=== PATIENT | male | born 1950 | race Caucasian/White ===

== ENCOUNTER 2021-05-09 11:36 | Outpatient (CLI) | payer MEDICARE, MEDICAID, SELFPAY ==
--- NOTE | ~2021-05-09 | CT_ITS ---
EXAMINATION: CT shoulder RT wo con DATE: 05/09/2021 12:12 INDICATION: Right shoulder pain with bicipital tendinitis TECHNIQUE: High resolution computed tomography (CT) of the right shoulder was performed without intra venous contrast. Additional sagittal and coronal reconstructions were performed. Automated exposure c ontrol and iterative reconstruction technique were employed. The dose-length product was 580.61 mGy-c m. COMPARISON: Radiographs dated 05/09/2021 FINDINGS: Bone alignment is normal. No fracture. Mild cystic change along the superior facet footplate of the g reater tuberosity suggesting disease of the supraspinatus tendon. There is small amount of dystrophic calcification in the region of the posterior most middle facet footplate of the infraspinatus tendon consistent with calcific tendinitis. Mild to moderate acromioclavicular osteoarthritis. The acromion undersurface is minimally curved in morphology (type I-II). Tiny subacromial spurs. And humeral join t space is normal with no joint effusion small corticated ossicle anterior to the joint line which co uld represent degenerative loose body or heterotopic ossicle either in the anterior capsular in the s ubscapularis tendon. Soft tissues at the right axilla are unremarkable with no pathologically enlarge d lymphadenopathy. Visualized portion of the lateral left lung is unremarkable. IMPRESSION: 1. Right infraspinatus calcific tendinitis and cystic change at the superior facet of the greater tub erosity suggesting supraspinatus tendon disease. 2. Mild to moderate acromioclavicular osteoarthritis. Reviewed, dictated and finalized at location A. IMPRESSION: 1. Right infraspinatus calcific tendinitis and cystic change at the superior fa cet of the greater tuberosity suggesting supraspinatus tendon disease. 2. Mild to moderate acromioclavicular osteoarthritis.
--- NOTE | ~2021-05-09 | XR_ITS ---
EXAMINATION: XR humerus RT INDICATION: Right arm pain, bicipital tendinitis TECHNIQUE: Two views of the right humerus are obtained on three radiographs. COMPARISON: None available FINDINGS: Bone alignment is normal. There is no fracture. There is mild to moderate osteoarthritis of the acromioclavicular joint. Mild osteoarthritis is also noted in the elbow. IMPRESSION: 1. No acute osseous abnormality. Reviewed, dictated and finalized at location B.
--- NOTE | ~2021-05-09 | XR_ITS ---
EXAMINATION: XR shoulder RT min 2V INDICATION: Right shoulder pain TECHNIQUE: Four views of the right shoulder are submitted. COMPARISON: None FINDINGS: Normal alignment. No fracture. There is mild to moderate acromioclavicular joint osteoarthr itis. Soft tissues are unremarkable. Calcific tendinitis of the infraspinatus tendon, better apprecia jade on today's CT scan. IMPRESSION: 1. Osteoarthritis and calcific tendinitis of the infraspinatus. Reviewed, dictated and finalized at location B.
== END 2021-05-09 11:37 | disposition home or self-care (01) ==
LOC: ANHIMG 11:41
PROVIDERS: PCP Internal Medicine; Visit Provider Nurse Practitioner Adult Health
DX: M19.011 Primary osteoarthritis, right shoulder (principal); M75.31 Calcific tendinitis of right shoulder
CPT/HCPCS: 73030; 73060; 73200

== ENCOUNTER 2024-07-30 19:52 | Emergency (ER) | payer MEDICARE, MEDICAID, SELFPAY ==
--- NOTE | ~2024-07-30 | CT_ITS ---
CLINICAL INDICATION: Fall COMPARISON: None. TECHNIQUE: Multiple contiguous axial images of the chest, abdomen and pelvis were performed without t he administration of intravenous contrast The dose-length product (DLP) was 1233 mGy-cm. Automated exposure control and iterative reconstruction technique were employed. FINDINGS/OBSERVATIONS: LUNG: Large pleural-based mass is identified within the left upper lobe, with medial extension to the left hilum, which represents a malignancy until proven otherwise. Scattered subcentimeter nodules are present bilaterally, likely representing metastatic disease. Nodu lar pleural thickening is also noted, specifically within the left lung base. No contusion, pneumothorax or hemothorax. MEDIASTINUM:Extensive mediastinal lymphadenopathy. The largest lymph node is within the left hilum measuring 26 mm in short axis dimension. Subcarinal lymphadenopathy is also noted measuring 23 mm in short axis dimension. Retrosternal lymph nodes are also noted within the pericardial fat. HEART: The heart is of normal size, without pericardial effusion. SOFT TISSUES OF THE CHEST: Unremarkable. Liver: The liver is shrunken and nodular, and demonstrates heterogeneous attenuation. Punctate calcifications identified within the hepatic parenchyma, suggesting prior granulomatous dise ase. No perihepatic fluid to suggest acute traumatic injury. Gallbladder and biliary system: The gallbladder is surgically absent. Pancreas: Limited evaluation without intravenous contrast. No peripancreatic fluid is identified to suggest acute traumatic injury. Spleen: Punctate calcifications identified within the splenic parenchyma, suggesting prior granulomat ous disease. The remainder of the spleen demonstrates otherwise homogeneous attenuation and is not enlarged. No perisplenic fluid is identified to suggest acute traumatic injury. Kidneys: The bilateral kidneys are heterogeneous in attenuation, without hydronephrosis or significant renal c alculi. No perirenal fluid is identified to suggest acute traumatic injury. Adrenal glands: Unremarkable. Gastrointestinal tract: Colonic diverticulosis without surrounding inflammatory change. No free fluid within the abdomen or pelvis. Vasculature: Densely calcified atherosclerotic disease. Within the left groin, is asymmetric enlargement of the left common femoral vein with surrounding inf lammatory change, possibly representing acute venous thrombosis for which clinical correlation and po ssible focused ultrasound is recommended. Significant splenorenal varicosities are identified to the left of midline extending into the pelvis. Lymph nodes: Limited evaluation without intravenous contrast. Pelvic structures: The bladder is only minimally distended, and otherwise unremarkable. The prostate gland is enlarged with bulky calcifications. Body wall and musculoskeletal: No umbilical hernia. Significant degenerative disease within the lower thoracic and lumbosacral spines with osteophyte for mation, disc space narrowing, endplate changes and vacuum phenomena. No lytic or blastic lesions are identified.. No acute fracture within the thoracic or lumbar spine. No acute rib fractures. No acute sternal fracture. IMPRESSION: No hollow or solid visceral organ injury. No acute fracture. Findings within the left upper lobe representing a malignancy until proven otherwise. Multiple subcentimeter pulmonary nodules detected bilaterally for which metastatic disease is suspect ed. Extensive mediastinal lymphadenopathy without retroperitoneal or significant mesenteric adenopathy. Additional findings consistent with portal hypertension. Asymmetric enlargement of the left common femoral vein with surrounding inflammatory change for which focused ultrasound may be performed, following clinical correlation (if needed) to exclude venous th rombosis. Reviewed, dictated and finalized at location A. IMPRESSION: No hollow or solid visceral organ injury. No acute fracture. Findings within the left upper lobe representing a malignancy until proven othe rwise. Multiple subcentimeter pulmonary nodules detected bilaterally for which metasta tic disease is suspected. Extensive mediastinal lymphadenopathy without retroperitoneal or significant me senteric adenopathy. Additional findings consistent with portal hypertension. Asymmetric enlargement of the left common femoral vein with surrounding inflamm atory change for which focused ultrasound may be performed, following clinical correlation (if needed) to exclude venous thrombosis.
--- NOTE | ~2024-07-30 | CT_ITS ---
History: Fall PROCEDURE: CT head without contrast. COMPARISON: None TECHNIQUE: Axial imaging of the head performed from the skull base to the vertex without IV contrast. Sagittal a nd coronal reformations obtained. DLP: 681 mGy-cm FINDINGS: The ventricles are enlarged. The dilatation of the ventricles is proportional to the degree of sulcal prominence, not uncommon in the senescent brain. Decreased attenuation is identified within the periventricular white matter, likely secondary to micr ovascular ischemic disease, in a patient of this age. There is no mass, mass effect or midline shift. There is no abnormal extra-axial fluid collection or intracranial hemorrhage. Visualized paranasal sinuses are clear. The mastoid air cells are well aerated. No acute displaced fractures within the overlying cranium. Impression: No acute intracranial hemorrhage or suspicious mass effect. Reviewed, dictated and finalized at location A. Impression: No acute intracranial hemorrhage or suspicious mass effect.
--- OUTSIDE RECORDS SUMMARY | 2024-07-30 19:53 | XMS_ITS | Clinical Summary ---
Author Organization [facility] [employer] Address [address] [place] [address] Care Team Providers Care Licensed Mental Health Professional Name Role Phone Jacques Kim MD Primary Care Provider [phone] Source Comments [facility],non-owned Affiliates and Associated Physician Practices is amultiple site organization consisting of ambulatory clinics and hospital sitesin [place], [place], [place] and [place]. This disclosure is being madepursuant to the Care Everywhere program and may not contain all information available regarding this patient. Last updated 17.[facility] [employer] Allergies Active Allergy Reactions Criticality Noted Date Comments Sulfa Drugs Skin Reactions Medium 03/27/2014 Medications * Be aware that medications may not be up to date on this document. Alwaysverify current medications with the patient. acetaminophen (TYLENOL) 325 MG tablet Take 2 (two) tablets by mouth every 4 hours as needed for Fever or Pain Maximum allowable Acetaminophen amount = 4 Grams (4000 mg) / 24 hours. Active buPROPion SR 12hr (WELLBUTRIN-SR ) 150 MG tablet Take 1 (one) tablet by mouth once daily 0 Active metoprolol succinate XL 24hr (TOPROL XL) 25 MG tablet Take 1 (one) tablet by mouth once daily 0 Active lisinopril (PRINIVIL; ZESTRIL) 20 MG tablet Take 1 (one) tablet by mouth once daily 1 Active albuterol HFA (PROVENTIL;DUYEN TOLIN;PROAIR) 108 (90 Base) MCG/ACT inhaler 1 Active Multiple Vitamin (MULTIVITAMIN ADULT PO) Active sildenafil (VIAGRA) 100 MG tablet Take 0.5 (one-half) tablet by mouth once daily as needed (take 1 tablet daily as needed 1 hour prior to intercourse on empty stomach) 1 hour prior to intercourse 10 tablet 1 Active Magnesium 400 MG Take 400 mg by mouth once daily Active cyclobenzaprin e (Flexeril) 10 MG tablet 1 (one) tablet 3 times daily as needed 2 Active rosuvastatin (Crestor) 20 MG tablet Take 1 (one) tablet by mouth at bedtime 2 Active Cyanocobalamin (B-12) 250 MCG Take 1 (one) tablet by mouth once daily Active Potassium 99 MG tablet Take 1 (one) tablet by mouth once daily Active Coenzyme Q10 (CoQ10) 100 MG Activ e famotidine (Pepcid) 40 MG tablet TAKE 1 TABLET BY MOUTH EVERY DAY 90 tablet 1 5 Active Active Problems Problem Noted Date Diagnosed Date Anemia 07/30/2024 Overview (07/30/2024): Progressive drop in Hgb in 2024 with normal MCV and iron level Duodenum ulcer 09/23/2022 Overview (09/25/2022): 09/23/22: EGD duodenal bulb ulcer, antral biopsies negative for H pylori. 09/25/22 started famotidine 40 mg bid, drop to 40 mg qd after a month Colon adenomas 12/04/2020 Overview (01/12/2023): 12/04/20 colonoscopy: multiple adenomas removed, repeat in 1-2 years. 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 07/31/14 CT: fatty liver 12/14/18 CT w/contrast: nodular liver, multiple indeterminate hypodensities 01/11/19 MRI ([facility]): nodular liver, no focal lesions, mild splenomegaly, no ascites 01/24/20 US: nodular liver, no focal lesions, patent vessels, no ascites dwp 01/24/20 EGD: no varices, moderate PHG with mucosal hemorrhages in the antrum, biopsies okay mcm 12/04/20 US: nodular liver, no focal lesions, patent vessels, no ascites dwp 07/26/21 US: nodular liver, new 2 cm left lobe hypodensity, patent vessels, no ascites dwp 09/04/21 MRI: nodular liver, no worrisome focal lesions, patent vessels, no ascites mcm 04/09/22 US: nodular liver, no focal lesions seen, patent vessels, no ascites mcm 09/23/22 EGD: no varices, no PHG 10/07/22 US: nodular liver, no focal lesions seen, patent vessels, no ascites mcm 04/15/23 US: nodular liver, no focal lesions seen, patent vessels, no ascites mcm 12/30/23 US: nodular liver, no focal lesions seen, patent vessels, no ascites mcm 07/28/24 US: nodular liver, no focal lesions, patent vessels, no ascites mcm Diffuse large cell lymphoma in remission 018 Overview (06/25/2019): Diagnosed in 2013 and treated with R-CHOP Prostate cancer 06/22/2017 Overview (06/27/2019): Diagnosed 2013 Rising PSA level Encounters Date Type Department Care Team Description 07/27/2024 10:14 AM CDT - 07/27/2024 11:59 PM CDT Hospital Encounter [facility] [address] [place] [phone] Hardeep Novak MD Discharge Disposition: Home or Self Care 07/27/2024 9:09 AM CDT - 07/27/2024 9:39 AM CDT Hospital Encounter [facility] [address] [place] [address] Hardeep Novak MD Discharge Disposition: Home or Self Care 07/27/2024 Travel 06/30/2024 Telephone [facility] - [place] [address] [place] [address], [place] [phone] Demi Landin RN Future Appointment 05/30/2024 Orders Only [facility] - Urology [address] [place] [address], [place] [phone] Trini Stephenson LPN 05/19/2024 Refill [facility] - [address], [place] [phone] Hardeep Novak MD Refill Request from Last 3 Months Immunizations Immunization Administration Dates Next Due INFLUENZA VACCINE 05/01/2017 Family History Medical History Relation Name Comments None Known Brother CVA Father Status: d None Known Maternal Aunt None Known Maternal Grandfather None Known Maternal Grandmother None Known Maternal Uncle None Known Mother Status: d None Known Other None Known Paternal Aunt None Known Paternal Grandfather None Known Paternal Grandmother None Known Paternal Uncle None Known Sister Asthma Neg Hx Cancer - Breast Neg Hx Cancer - Other Neg Hx Cancer - Skin, Melanoma Neg Hx Cancer - Skin, Non Melanoma Neg Hx Eczema Neg Hx Hemophilia Neg Hx Psoriasis Neg Hx Relation Name Status Comments Brother Father Maternal Aunt Maternal Grandfather Maternal Grandmother Maternal Uncle Mother Other Paternal Aunt Paternal Grandfather Paternal Grandmother Paternal Uncle Sister Social History Tobacco Use Types Packs/Day Years Used Date Smoking Tobacco: Every Day Cigarettes 0.5 55 Smokeless Tobacco: Never Tobacco Cessation:Ready to Q uit: Not Asked; Counseling Given: Not Answered Alcohol Use Standard Drinks/Week Comments No 0 (1 standard drink = 0.6 oz pur e alcohol) Sex and Gender Information Value Date Recorded Sex Assigned at Male 04/02/2022 9:58 AM GOVERNMENT SERVICE EXECUTIVE Legal Sex Male 5:14 PM GOVERNMENT SERVICE EXECUTIVE Gender Identity Male 04/02/2022 9:58 AM GOVERNMENT SERVICE EXECUTIVE Sexual Orientation Straight 04/02/2022 9: 58 AM GOVERNMENT SERVICE EXECUTIVE Last Filed Vital Signs Vital Sign Reading Time Taken Comments Blood Pressure 126/83 02/01/2024 1:44 PM GOVERNMENT SERVICE EXECUTIVE Pulse 67 02/01/2024 1:44 PM GOVERNMENT SERVICE EXECUTIVE Temperature 36.8 C (98.2 F) 08/10/2023 1:06 PM CDT Respiratory Rate 18 01/12/2023 2:11 PM GOVERNMENT SERVICE EXECUTIVE Oxygen Saturation 96% 02/01/2024 1:44 PM GOVERNMENT SERVICE EXECUTIVE Inhaled Oxygen Concentration 21% 10/20/2018 7 :15 AM CDT Weight 104.5 kg (230 lb 6.4 oz) 02/01/2024 1:44 PM GOVERNMENT SERVICE EXECUTIVE Height 175.3 cm (5' 9) 02/01/2024 1:44 PM GOVERNMENT SERVICE EXECUTIVE Body Mass Index 34.02 02/01/2024 1:44 PM GOVERNMENT SERVICE EXECUTIVE Plan of Treatment Upcoming Encounters Date Type Department Care Team (Late st Contact Info) Description 08/01/2024 1:30 PM CDT Office Visit [facility] [address] [place] [address], [place] [phone] Hardeep Cohen MD [address] [place] [address] [place] [address] Health Maintenance Due Date Last Done Comments COLOGUARD (AGES 45-75) - COLON CA SCREENING 1950 CT COLONOGRAPHY - COLON CA SCREENING 1950 FIT - COLON CA SCREENING 1950 FLEX SIG - COLON CA SCREENING 1950 HEPATITIS C SCREENING 09/07/1969 DTAP/TDAP/TD VACCINES (1 - Tdap) 09/11/1970 PNEUMOCOCCAL VACCINE 50+ (1 of 2 - PCV) 09/11/1970 LUNG CANCER SCREENING 09/11/2001 ZOSTER VACCINE (1 of 2) 09/11/2001 HEPATITIS B VACCINE (1 of 3 - Risk 3-dose series) 2011 Respiratory Syncytial Virus (RSV) Vaccine Pt: or over 60 yrs (1 - Risk 60-74 years 1-dose series) 2011 AAA SCREENING 09/11/2016 COVID-19 VACCINE (3 - season) 2023 06/12/2020, 05/15/2020 DEPRESSION SCREENING 02/17/2024 MEDICARE AWV CALENDAR YEAR 2024 SCREENING FOR DIABETES 07/28/2027 , 07/27/2024, 02/19/2024, Additional history exists COLON MONITORING 09/23/2032 09/23/2022, 09/2022, 12/04/2020, Additional history exists COLONOSCOPY - COLON CA SCREENING 09/23/2032 09/23/2022, 09/23/2022, 12/04/2020, Additional history exists Colorectal Cancer Screening 09/23/2032 INFLUENZA VACCINE Completed 11/23/2023, 05/01/2017 HIB VACCINE Aged Out No longer eligi ble based on patient's age to complete this topic HPV VACCINE Aged Out No longer eligi ble based on patient's age to complete this topic MENINGOCOCCAL (Group B) VACCINE SHARED DECISION-MAKING Aged Out No longer eligible based on patient's age to complete this topic MENINGOCOCCAL GROUPS A/C/Y/W VACCINE Aged Out No longer eligible based on patient's age to complete this topic Goals Goal Patient Goal Type Associated Problems Recent Progress Patient-Stated? Author Medication Management General On track( 024 1:45 PM GOVERNMENT SERVICE EXECUTIVE) No Sarah Beth Hariston, RN Note: Expected end date: ongoing Interventions: Take all medications as prescribed Let your doctor know right away about any changes in your medications Make sure to request a refill of your medication at least one week prior to your last dose Procedures Procedure Name Priority Date/Time Associated Diagnosis Comments PROSTATE SPECIFIC ANTIGEN SCREEN Routine 07/27/2024 10:32 AM CDT Malignant neoplasm of prostate (HCC) HEMOGLOBIN A1C Routine 07/27/2024 10:32 AM CDT Liver cirrhosis secondary to [facility] Prostate cancer (CMS/HCC) Malignant neoplasm of prostate (HCC) ALPHA FETOPROTEIN BLOOD TUMOR MARKER Routine 07/27/2024 10:25 AM CDT Liver cirrhosis secondary to MASH Abnormal finding on imaging of liver PT-INR [facility] Routine 07/27/2024 10:25 AM CDT Liver cirrhosis secondary to MASH Abnormal finding on imaging of liver COMPREHENSIVE METABOLIC PANEL Routine 07/27/2024 10:25 AM CDT Liver cirrhosis secondary to MASH Abnormal finding on imaging of liver CBC W AUTO DIFFERENTIAL Routine 07/27/2024 10:25 AM CDT Liver cirrhosis secondary to MASH Abnormal finding on imaging of liver US ABDOMEN LIMITED Routine 07/27/2024 9: 35 AM CDT Liver cirrhosis secondary to MASH ENDOSCOPY, COLON, SCREENING Routine 09/23/2022 8:21 AM CDT from Last 3 Months or Most Recently Relevant to Health Maintenance Results * HEMOGLOBIN A1C [IN-HOUSE TEST] (07/27/2024 10:32 AM CDT) Hemoglobin A1c 5.2 <=5.6 % 07/27/2024 12:09 PM CDT [facility] Estimated Average Glucose 103 mg/dL 07/27/2024 12:09 PM T [facility] Comment: HbA1c Interpretation: Normal : < 5.7% Pre-diabetes: 5.7-6.4% Diabetes: Equal to or greater than 6.5% Test results diagnostic of diabetes should be repeated for confirmation. Treatment target values recommended by ADA and other clinical organizations should be used to evaluate metabolic control in patients. Reference: [place] Diabetes Association, Standards of Care in Diabetes -2020 In patients 70 years and older consider HbA1c target range of 7.0-7.5% (Reference: Gato Barber et al. JAMDA. 2012) The Sebia assay for the measurement of HbA1c is a National Glycohemoglobin Standardization Program (NGSP) certified method. Blood BLOOD SPECIMEN WITH EDTA / Unknown Lab Venipuncture / Unknown 07/27/2024 10:32 AM CDT 07/27/2024 10:57 AM CDT us Jacques Kim MD LAB - CHEMISTRY ORDERABLES F inal Result [facility] [address] [place] [phone], [facility] [phone] * PROSTATE SPECIFIC ANTIGEN SCREEN (07/27/2024 10:32 AM CDT) PSA Total 2.2 <4.0 ng/mL 07/27/2024 12:19 PM CDT [facility] Blood BLOOD SPECIMEN / Unknown Lab Venipuncture / Unknown 07/27/2024 10:32 AM CDT 07/27/2024 10:57 AM CDT Narrative [facility] - 07/27/2024 12:19 PM CDT PSA values will vary depending on the testing procedure used. Results are not comparable across different test methods. [facility] uses the Applika Alinity immunoassay test method. us Jacques Kim MD LAB - CHEMISTRY ORDERABLES F inal Result [address] [address], [facility] [phone] * PT-INR [facility] (07/27/2024 10:25 AM CDT) PT 14.3 12.1 - 14.8 Seconds 07/27/2024 11:30 AM CDT [facility] INR 1.1 See Comment 07/27/2024 11:30 AM CDT [facility] Comment:The suggested therap eutic range for standard coumadin (warfarin) therapy is an INR of 2.0-3.0. For high-risk patients (Mechanical Mitral Valve Prosthesis, etc.), the suggested prophylactic therapeutic range is an INR of 2.5-3.5. Blood BLOOD SPECIMEN / Unknown Lab Venipuncture / Unknown 07/27/2024 10:25 AM CDT 07/27/2024 10:57 AM CDT us Hardeep Cohen MD LAB - COAGULATION ORDERABLES Final Result [address] [address], [facility] [phone] * ALPHA FETOPROTEIN BLOOD TUMOR MARKER (07/27/2024 10:25 AM CDT) [facility] Alpha-Fetoprote in Tumor Marker 3.6 <=8.3 ng/mL 07/27/2024 12:23 PM [facility] Comment: AFP values will vary depending on testing procedure used. Results are not comparable across different methods. AFP values obtained by [facility] using an [place] Alinity Immunoassay. Blood BLOOD SPECIMEN / Unknown Lab Venipuncture / Unknown 07/27/2024 10:25 AM CDT 07/27/2024 10:57 AM CDT Hardeep Cohen MD LAB - CHEMISTRY OR DERABLES Final Result [facility] [address] [place] [address], [facility] [phone] * (ABNORMAL) CBC W/ DIFFERENTIAL (07/27/2024 10:25 AM CDT) [facility] WBC 4.1 4.0 - 10.7 x10E9/L 07/27/2024 11:15 AM [facility] RBC Count 3.95(L) 4.30 - 5.80 x10E12/L 07/27/2024 11:15 AM [facility] Hemoglobin 13.6 13.3 - 17.5 g/dL 07/27/2024 11:15 AM [facility] Hematocrit 38.6(L) 38.7 - 51.1 % 07/27/2024 11:15 AM [facility] MCV 97.7 80.0 - 98.0 fL 07/27/2024 11:15 AM [facility] MCH 34.4(H) 26.7 - 33.6 pg 07/27/2024 11:15 AM [facility] MCHC 35.2 31.7 - 36.3 g/dL 07/27/2024 11:15 AM [facility] RDW-CV 12.3 11.3 - 14.8 % 07/27/2024 11:15 AM [facility] Platelet Count 163 150 - 420 x10E9/L 07/27/2024 11:15 AM [facility] MPV 10.1 7.8 - 11.4 fL 07/27/2024 11:15 AM [facility] Neutrophil % 39.1(L) 41.0 - 74.0 % 07/27/2024 11:15 AM [facility] Lymphocyte % 40.8 17.0 - 47.0 % 07/27/2024 11:15 AM [facility] Monocyte % 12.8(H) 3.0 - 11.0 % 07/27/2024 11:15 AM [facility] Eosinophil % 6.3 0.0 - 7.0 % 07/27/2024 11:15 AM [facility] Basophil % 1.0 0.0 - 1.6 % 07/27/2024 11:15 AM [facility] Immature Granulocytes % 0.0 0.0 - 1.0 % 07/27/2024 11:15 AM [facility] Neutrophil Absolute 1.62 1.60 - 7.50 x10E9/L 07/27/2024 11:15 AM [facility] Lymphocyte Absolute 1.69 1.00 - 4.40 x10E9/L 07/27/2024 11:15 AM [facility] Monocyte Absolute 0.53 0.15 - 1.00 x10E9/L 07/27/2024 11:15 AM [facility] Eosinophil Absolute 0.26 0.00 - 0.60 x10E9/L 07/27/2024 11:15 AM [facility] Basophil Absolute 0.04 0.00 - 0.13 x10E9/L 07/27/2024 11:15 AM [facility] Blood BLOOD SPECIMEN / Unknown Lab Venipuncture / Unknown 07/27/2024 10:25 AM CDT 07/27/2024 10:57 AM T us Hardeep Cohen MD LAB - HEMATOLOGY O RDERABLES Final Result [facility] [address] [place] [address], [facility] [phone] * (ABNORMAL) COMPREHENSIVE METABOLIC PANEL (07/27/2024 10:25 AM [facility]) BUN 18 7 - 26 mg/dL 07/27/2024 12:16 PM [facility] Creatinine 1.16 0.71 - 1.16 mg/dL 07/27/2024 12:16 PM [facility] Sodium 139 136 - 145 mmol/L 07/27/2024 12:16 PM [facility] Potassium 4.7(H) 3.5 - 4.5 mmol/L 07/27/2024 12:16 PM [facility] Chloride 108(H) 98 - 107 mmol/L 07/27/2024 12:16 PM [facility] CO2 21(L) 22 - 29 mmol/L 07/27/2024 12:16 PM [facility] Glucose 90 70 - 99 mg/dL 07/27/2024 12:16 PM [facility] Calcium 9.6 8.4 - 10.2 mg/dL 07/27/2024 12:16 PM [facility] Protein Total 7.1 6.0 - 8.3 g/dL 07/27/2024 12:16 PM [facility] Albumin 3.5 3.4 - 5.0 g/dL 07/27/2024 12:16 PM [facility] Bilirubin Total 1.0 0.2 - 1.2 mg/dL 07/27/2024 12:16 PM [facility] Alkaline Phosphatase 74 40 - 150 U/L 07/27/2024 12:16 PM [facility] ALT 20 5 - 55 U/L 07/27/2024 12:16 PM [facility] AST 40(H) 5 - 34 U/L 07/27/2024 12:16 PM [facility] Anion Gap 10 6 - 16 07/27/2024 12:16 PM [facility] BUN/Creatinine Ratio 16 7 - 23 07/27/2024 12:16 PM [facility] Osmolality Calculated 289 275 - 295 mOsm/kg 07/27/2024 12:16 PM CDT [facility] Albumin/Globulin Ratio 1.0(L) 1.1 - 2.3 07/27/2024 12:16 PM CDT [facility] eGFR by CKD-EPI 67(L) >=90 mL/min/1.7 3 m2 07/27/2024 12:16 PM CDT [facility] Blood BLOOD SPECIMEN / Unknown Lab Venipuncture / Unknown 07/27/2024 10:25 AM CDT 07/27/2024 10:57 AM CDT Narrative [facility] - 07/27/2024 12:16 PM CDT Estimated Glomerular Filtration Rate (eGFR) calculated using the CKD-EPI Creatinine Equation (2020), per the National Kidney Foundation and [place] Society of Nephrology recommendations. us Hardeep Cohen MD LAB - CHEMISTRY OR DERABLES Final Result [facility] [address] [place] [address], [facility] [phone] * US Abdomen Limited (07/27/2024 9:35 AM CDT) Anatomical Region Laterality Modality Abdomen Ultrasound 07/28/2024 10:0 3 AM CDT Impressions 07/28/2024 10:04 AM CDT Impression: Liver Visualization Score A: No or minimal limitations. US-1 Negative. Repeat surveillance US in 6 months. Cirrhosis and stigmata of portal venous hypertension. Status postcholecystectomy. REFERENCE: US LI-RADS categories: US Category: US 1 - Negative: No evidence of hepatocellular carcinoma (HCC). US 2 - Subthreshold: Observation detected that may warrant short-interval US surveillance. Observation<10 mm in diameter, not definitely benign. US 3 - Positive: Observation detected that may warrant multi-phase contrast-enhanced imaging. Observation >/= 10 mm in diameter or new thrombus in vein. Visualization Score: A. No or minimal limitations: Limitations, if any, are unlikely to meaningfully affect sensitivity. B. Moderate limitations: Limitations may obscure small masses. C. Severe limitations: Limitations significantly lower sensitivity for focal liver lesions. Report drafted by Rob Pedersen (resident). > Interpreting Provider: Rob Pedersen on 07/28/2024 10:04 AM Narrative 07/28/2024 10:04 AM CDT PROCEDURE: US ABDOMEN LIMITED, DATE/TIME OF EXAM: 07/27/2024 9:35 AM, LOCATION [facility] INDICATION: K75.81: Liver cirrhosis secondary to ROBLES (HCC) K74.60: Liver cirrhosis secondary to ROBLES (HCC) ADDITIONAL CLINICAL INFORMATION: Ordering Provider Reason For Exam: Technologist Note: Additional: COMPARISON: Ultrasound abdomen 12/30/2023. Findings Liver Visualization Score: No or minimal limitations in liver visualization Liver Morphology: The liver has a coarse echotexture and nodular surface. Liver Observations: None. Main Portal Vein: Color Doppler evaluation demonstrates patency of the main portal vein. Hepatic Veins: Color Doppler evaluation demonstrates patency of the hepatic veins. Bile Ducts: The common bile duct is nondilated, measuring 7 mm. No intrahepatic or extrahepatic biliary dilation. Gallbladder: The gallbladder is absent. . Sonographic Aldridge's sign is negative. Ascites: No ascites is present. Spleen: The spleen measures 12.6 cm in length. Splenic granulomas present. Pancreas: The visible pancreas is normal in echogenicity. Right Kidney: The right kidney measures 10.6 cm in length. Limited views of the right kidney reveal no evidence of nephrolithiasis or hydronephrosis. No discrete mass identified. Other: None. Procedure Note Rob Pedersen MD - 07/28/2024 PROCEDURE: US ABDOMEN LIMITED, DATE/TIME OF EXAM: 07/27/2024 9:35 AM, LOCATION [facility] INDICATION: K75.81: Liver cirrhosis secondary to ROBLES (HCC) K74.60: Liver cirrhosis secondary to ROBLES (HCC) ADDITIONAL CLINICAL INFORMATION: Ordering Provider Reason For Exam: Technologist Note: Additional: COMPARISON: Ultrasound abdomen 12/30/2023. Findings Liver Visualization Score: No or minimal limitations in liver visualization Liver Morphology: The liver has a coarse echotexture and nodular surface. Liver Observations: None. Main Portal Vein: Color Doppler evaluation demonstrates patency of the main portal vein. Hepatic Veins: Color Doppler evaluation demonstrates patency of the hepatic veins. Bile Ducts: The common bile duct is nondilated, measuring 7 mm. No intrahepatic or extrahepatic biliary dilation. Gallbladder: The gallbladder is absent. . Sonographic Aldridge's sign is negative. Ascites: No ascites is present. Spleen: The spleen measures 12.6 cm in length. Splenic granulomas present. Pancreas: The visible pancreas is normal in echogenicity. Right Kidney: The right kidney measures 10.6 cm in length. Limited views of the right kidney reveal no evidence of nephrolithiasis or hydronephrosis. No discrete mass identified. Other: None. Impression: Liver Visualization Score A: No or minimal limitations. US-1 Negative. Repeat surveillance US in 6 months. Cirrhosis and stigmata of portal venous hypertension. Status postcholecystectomy. REFERENCE: US LI-RADS categories: US Category: US 1 - Negative: No evidence of hepatocellular carcinoma (HCC). US 2 - Subthreshold: Observation detected that may warrant short-interval US surveillance. Observation<10 mm in diameter, not definitely benign. US 3 - Positive: Observation detected that may warrant multi-phase contrast-enhanced imaging. Observation >/= 10 mm in diameter or new thrombus in vein. Visualization Score: A. No or minimal limitations: Limitations, if any, are unlikely to meaningfully affect sensitivity. B. Moderate limitations: Limitations may obscure small masses. C. Severe limitations: Limitations significantly lower sensitivityfor focal liver lesions. Report drafted by Rob Pedersne (resident). > Interpreting Provider: Rob Pedersen on 07/28/2024 10:04 AM us Hardeep Cohen MD US ORDERABLES Fi nal Result * ENDOSCOPY, COLON, SCREENING (09/23/2022 8:21 AM CDT) Report Endoscopy POC Endoscopy Department Report _ Patient Name: Marcus Marie Procedure Date: 09/23/2022 8:21 AM Date of : 1950 Classification: Outpatient Gender: Male Ethnicity: Not or Race: White _ Providers: Hardeep Modi MD Referring MD: Jacques Kim MD (Referring MD) Procedure: Colonoscopy Indications: High risk colon cancer surveillance: Personal history of colonic polyps Medications: Monitored Anesthesia Care Description of Procedure: Pre-Anesthesia Assessment: - Prior to the procedure, a History and Physical was performed, and patient medications and allergies were reviewed. The patient's tolerance of previous anesthesia was also reviewed. The risks and benefits of the procedure and the sedation options and risks were discussed with the patient. All questions were answered, and informed consent was obtained. Prior Anticoagulants: The patient has taken no anticoagulant or antiplatelet agents. ASA Grade Assessment: III - A patient with severe systemic disease. After reviewing the risks and benefits, the patient was deemed in satisfactory condition to undergo the procedure. - Prior Aspirin/ NSAID therapy: The patient has taken no aspirin or NSAID medications. After I obtained informed consent, the scope was passed under direct vision. Throughout the procedure, the patient's blood pressure, pulse, and oxygen saturations were monitored continuously. The Colonoscope was introduced through the anus and advanced to the cecum, identified by appendiceal orifice and ileocecal valve. The colonoscopy was performed without difficulty. The patient tolerated the procedure well. The quality of the bowel preparation was adequate. The ileocecal valve, appendiceal orifice, and rectum were photographed. Findings: The perianal and digital rectal examinations were normal. A 3 mm polyp was found in the ascending colon. The polyp was sessile. The polyp was removed with a jumbo cold forceps. Resection and retrieval were complete. Verification of patient identification for the specimen was done by the nurse using the patient's name and date. Estimated blood loss was minimal. Multiple small and large-mouthed diverticula were found in the sigmoid colon. The exam was otherwise without abnormality on direct and retroflexion views. Estimated Blood Loss: Estimated blood loss was minimal. Complications: No immediate complications. Impression: - One 3 mm polyp in the ascending colon, removed with a jumbo cold forceps. Resected and retrieved. - Diverticulosis in the sigmoid colon. - The examination was otherwise normal on direct and retroflexion views. Recommendation: - Patient has a contact number available for emergencies. The signs and symptoms of potential delayed complications were discussed with the patient. Return to normal activities tomorrow. Written discharge instructions were provided to the patient. - Resume previous diet. - Continue present medications. - Await pathology results. - Repeat colonoscopy in 5 years for surveillance. - Return to my office as previously scheduled. Attending Participation: I personally performed the entire procedure. I personally performed the entire procedure. Procedure Code(s): --- Professional --- 13837, Colonoscopy, flexible; with biopsy, single or multiple Diagnosis Code(s): --- Professional --- Z86.010, Personal history of colonic polyps D12.2, Benign neoplasm of ascending colon K57.30, Diverticulosis of large intestine without perforation or abscess without bleeding CPT copyright 2021 [employer]. All rights reserved. The codes documented in this report are preliminary and upon customer experience associate review may be revised to meet current compliance requirements. Hardeep Modi MD 09/23/2022 9:15:24 AM This report has been signed electronically. Note Initiated On: 09/23/2022 8:21 AM Number of Addenda: [address] [address] [facility] [employer]OVATION 09/23/2022 8:21 AM CDT Hardeep Cohen MD GI PROCEDURE ORDER BUCK Edited Result - Final [facility] from Last 3 Months or Most Recently Relevant to Health Maintenance Insurance [employer] MEDICARE [facility] MANAGED MEDICARE ADV MEDICARE Care Teams Licensed Mental Health Professional Relationship Specialty Start Date End Date Jacques Kim MD [address] [place] [address] PCP - General 08/17/19
--- OUTSIDE RECORDS SUMMARY | 2024-07-30 19:53 | XMS_ITS | Clinical Summary ---
Author Organization [facility] Address [address] [place] [address] Phone Care Team Providers Care Change Management Analyst Name Role Phone Jeremias Spencer MD Unavailable [phone] Jacques Kim MD Primary Care Provider [phone] Allergies Active Allergy Reactions Criticality Noted Date Comments Sulfasalazine Rash Medium 03/27/2014 Medications ibuprofen (ADVIL,MOTRIN) 400 mg tablet 03/03/2017Ibupr ofen, po solid 400 mg [id number] PRN painCurrent Medication 8 Active albuterol HFA (PROAIR HFA) 90 mcg/actuation inhaler 8 Active acetaminophen (TYLENOL) 325 mg tablet Take 650 mg by mouth every 30 minutes as needed Active buPROPion SR (WELLBUTRIN SR) 150 mg 12 hr tablet 0 Active clotrimazole-bet amethasone (LOTRISONE) cream daily as needed 9 Active silver sulfadiazine (SILVADENE, SSD) 1 % cream 0 Active traMADoL (ULTRAM) 50 mg tablet TK 1 T PO Q 8 HOURS PRN 0 Active metoprolol XL (TOPROL-XL) 50 mg extended release tablet 1 Active lisinopriL (PRINIVIL,ZESTRI L) 20 mg tablet 1 Active Active Problems Problem Noted Date Diagnosed Date Non-Hodgkin's lymphoma of inguinal region 2017 Immunizations Immunization Administration Dates Next Due Moderna SARS-CoV-2 Monovalen t Vaccination (12+ YRS) 06/12/2020,05/15/2020 ZOSTER LIVE 03/03/2017, 7,08/15/2015,2014 Surgical History Surgery Date Site/Laterality Comments COLONOSCOPY Medical History Medical History Date Comments Diabetes mellitus (HCC) Lymphoma (HCC) Family History Medical History Relation Name Comments Cancer Father's Sister Heart attack Mother's Sister 1 Heart attack Mother's Sister 2 Heart attack Mother's Sister 3 Relation Name Status Comments Father's Sister Mother's Sister 1 Mother's Sister 2 Mother's Sister 3 Social History Tobacco Use Types Packs/Day Years Used Date Smoking Tobacco: Every Day Cigarettes 1 59.8 Started: 10/06/1963 Smokeless Tobacco: Never Tobacco Cessation:Ready to Q uit: Yes Alcohol Use Standard Drinks/Week Comments Not Currently 0 (1 standard drink = 0.6 oz pur e alcohol) AUDIT-C Answer Date Recorded Q1: How often do you have a drink containing alc ohol? 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 Gender Identity Not on file Sexual Orientation Not on file Obstetrics History Last Filed Vital Signs Vital Sign Reading Time Taken Comments Blood Pressure 109/56 07/26/2020 10:55 AM CDT Pulse 73 07/26/2020 10:55 AM CDT Temperature 36.7 C (98.1 F) 07/26/2020 10:55 AM CDT Respiratory Rate 18 07/26/2020 10:5 5 AM CDT Oxygen Saturation 95% 07/26/2020 10: 55 AM CDT Inhaled Oxygen Concentration - - Weight 119.5 kg (263 lb 6.4 oz) 021 10:55 AM CDT Height 175.3 cm (5' 9) 07/26/2020 10:5 5 AM CDT Body Mass Index 38.9 07/26/2020 10:55 AM CDT Plan of Treatment Health Maintenance Due Date Last Done Comments Colon Cancer Screening-Colonoscopy 1950 Depression Screening 1950 Fall Risk Assessment 1950 Hepatitis C Screening 1950 DTaP/Tdap/Td Vaccine (1 - Tdap) 09/11/1962 Pneumococcal vaccine 65+ (1 of 2 - PCV) 09/11/1970 Abdominal Aortic Aneurysm (A AA) Screen 09/11/2016 Well Visit 65+ 09/11/2016 Zoster Vaccine (1 of 2) 04/28/2017 03/03/19 18, 02/19/2016, 08/15/2015, Additional history exists Covid-19 Vaccine (3 - Modern a risk series) 07/10/2020 06/12/2020, 05/15/2020 Influenza Vaccine (Season Ended) 2024 Hepatitis B Screening Completed 09/20/[address] [place] [address] [address] [employer] UHC MEDICARE ADVANTAGE MEDICARE ADVANTAGE IDPA Care Teams Change Management Analyst Relationship Specialty Start Date End Date Jacques Kim MD PCP - General Family Medicine 07/28/19 Jeremias Spencer MD Medical Oncologist/[facility] Medical Oncology 01/28/19
--- OUTSIDE RECORDS SUMMARY | 2024-07-30 19:53 | XMS_ITS | CONTINUITY OF CARE DOCUMENT ---
Author Name lisapauletteessence Address Unknown Organization [facility] Address [address] [place] [address] Phone [phone] Care Team Providers Care Adult Parole Officer Name Role Phone Dennis Salas MD Unavailable [phone] WALT MELO MD Unavailable [phone] WALT MELO MD Unavailable [phone] PROBLEMS Condition Status Date Provider Notes Syncope active Dennis Salas MD INSURANCE PROVIDERS Payer name Policy type / Coverage type Howe red alliance party ID [facility] Other HEALTHCARE AND FAMILY SERVICES Medicaid 1 [id number] [facility] MEDICARE COMPLETE HMO Other [id number] HISTORY OF PROCEDURES Procedure Date Procedure Name Provider Procedure Notes S tatus FLAVIA Salas MD c ompleted
--- OUTSIDE RECORDS SUMMARY | 2024-07-30 19:53 | XMS_ITS | Referral Summary ---
Author Organization [facility] Address [address] [place] [address] Phone Care Team Providers Care Distribution Transformer Assembler Name Role Phone Jeremias Spencer MD Unavailable [phone] Jacques Kim MD Primary Care Provider [phone] Allergies Active Allergy Reactions Criticality Noted Date Comments Sulfasalazine Rash Medium 03/27/2014 Medications ibuprofen (ADVIL,MOTRIN) 400 mg tablet 03/03/2017Ibupr ofen, po solid 400 mg [id number] PRN painCurrent Medication 8 Active albuterol HFA [...] (12+ YRS) 06/12/2020,05/15/2020 ZOSTER LIVE 03/03/2017, 7,08/15/2015,2014 Social History Tobacco Use Types Packs/Day Years [...] Average Number of Drinks Not on file Frequency of Binge Drinking Not on file 07/17 Personal Safety Answer Date Recorded Getting School Help Needed Not on file 04/12 Sex and Gender Information Value Date Recorded Sex Assigned at Not on file 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 MEDICARE ADVANTAGE [facility] MEDICARE ADVANTAGE IDPA Care Teams Distribution Transformer Assembler Relationship Specialty Start Date End Date Jacques Kim MD PCP - General Family Medicine 07/28/19 Jeremias Spencer MD Medical Oncologist/Needle Loom Setter Medical Oncology 01/28/19
--- OUTSIDE RECORDS SUMMARY | 2024-07-30 19:53 | XMS_ITS | Encounter Summary ---
Author Organization [facility] Address [address] [place] [address] [place] [address] Care Team Providers Care Gluer And Wedger Name Role Phone Jacques Kim MD Primary Care Provider [phone] Encounter Details Date Type Department Care Team (Late Contact Info) Description 01/23/2020 Preop Outreach [facility] [address] [place] [id number] Nellie Crocker, CONSUELO Social History Tobacco Use Types Packs/Day Years Used Date Smoking Tobacco: Every Day Cigarettes 1.5 55 Smokeless Tobacco: Never Alcohol Use Standard Drinks/Week Comments No 0 (1 standard drink = 0.6 oz pur e alcohol) Sex and Gender Information Value Date Recorded Sex Assigned at Male 04/02/2022 9:58 AM SIX SIGMA BLACK TRAINER Legal Sex Male 5:14 PM SIX SIGMA BLACK TRAINER Gender Identity Male 04/02/2022 9:58 AM SIX SIGMA BLACK TRAINER Sexual Orientation Straight 04/02/2022 9: 58 AM SIX SIGMA BLACK TRAINER COVID-19 Exposure Response Date Recorded In the last month, have you been in contact with someone who was confirmed or suspected to have Coronavirus / COVID-19? No / Unsure 01/24/2020 7:06 AM SIX SIGMA BLACK TRAINER documented as of this encounter Plan of Treatment Upcoming Encounters Date Type Department Care Team (Late Contact Info) Description 08/01/2024 1:30 PM CDT Office Visit [facility] [address] [place] [address] Hardeep Cohen MD [address] [place] [address] [place] [address] documented as of this encounter Visit Diagnoses Not on filedocumented in this encounter Care Teams Gluer And Wedger Relationship Specialty Start Date End Date Jacques Kim MD [address] [place] [address] PCP - General 08/17/19 documented as of this encounter
[2024-07-30 19:57] VITALS: BP 117/56; PULSE 82; RESP 18; TEMP 36.8; O2SAT 100
[2024-07-30 20:02] VITALS: O2SAT 100
--- OUTSIDE RECORDS SUMMARY | 2024-07-30 20:11 | XMS_ITS | CONTINUITY OF CARE DOCUMENT ---
Author Name lisapauletteessence Address Unknown Organization [facility] Address [address] [place] [address] Phone [phone] Care Team Providers Care Hand Sign Writer Name Role Phone Dennis Salas MD Unavailable [phone] WALT MELO MD Unavailable [phone] WALT MELO MD Unavailable PROBLEMS Condition Status Date Provider Notes Syncope active Dennis Salas MD INSURANCE PROVIDERS Payer name Policy type / Coverage type [place]ckley red republican ID [facility] Other HEALTHCARE AND FAMILY SERVICES Medicaid 1 [id number] [facility] MEDICARE COMPLETE HMO Other [id number] HISTORY OF PROCEDURES Procedure Date Procedure Name Provider Procedure Notes S tatus FLAVIA Salas MD c ompleted
[2024-07-30] MEDS: ACETAMINOPHEN 325 MG TABLET 650 MG PO (20:37)
[2024-07-30] MEDS: HYDROmorphone HCL (*CRX) 0.5 MG TABLET PO (20:38)
[2024-07-30 20:56] VITALS: BP 117/63; PULSE 82; RESP 17; O2SAT 97
[2024-07-30 21:12] VITALS: PULSE 80; RESP 18
[2024-07-30] MEDS: IPRATROPIUM 0.5 MG/ALBUTEROL SULFATE 2.5 MG AMPUL.NEB 3 ML INHALATION (21:12)
[2024-07-30] MEDS: LIDOCAINE 5% PATCH 1 PATCH TRANSDERM (21:49)
[2024-07-30 21:52] VITALS: PULSE 83; RESP 18; O2SAT 97
[2024-07-30 22:25] VITALS: BP 116/56; PULSE 82; RESP 18; O2SAT 97
--- NOTE | 2024-07-30 22:26 | ED.FALL ---
HPI - Fall General Chief Complaint: Fall Stated Complaint: fall, rib pain Time Seen by Provider: 07/30/24 19:55 History of Present Illness HPI Narrative: Patient tripped on a branch and his backyard and fell, landing mostly on his right side, he has significant pain to his right ribs. Not entirely sure if he hit his head. No pain elsewhere other than right shoulder but he has chronic pain, able to ambulate here. History of cirrhosis Related Data Allergies Allergy/AdvReac Type Severity Reaction Status Date / Time Sulfa (Sulfonamide Allergy Mild Hives Verified 07/30/24 20:01 Antibiotics) Review of Systems Review of Systems: All systems reviewed & are unremarkable except as noted in HPI and below Exam Narrative: EXAMINATION OF ORGAN SYSTEMS/BODY AREAS: Constitutional: Vital signs per nursing GENERAL:[No acute distress, non-toxic appearing.] HEAD: Normal with no signs of head trauma. EYES: EOMI, conjunctiva normal ENT: Hearing grossly intact LUNGS: Nonlabored breathing. Some tenderness to palpation across the right ribs. Some wheezing and diminished lung sounds left side HEART: [Regular rate and rhythm] ABD: [Soft], [nontender to palpation] EXT: Normal range of motion SKIN: No significant bruising seen NEURO: [Alert and oriented x 3. No gross focal sensory or strength deficits.] PSYCH: Normal affect Course Vital Signs Vital signs: Vital Signs Temperature 98.2 F 07/30/24 19:57 Pulse Rate 82 07/30/24 19:57 Respiratory Rate 18 07/30/24 19:57 Blood Pressure 117/56 L 07/30/24 19:57 Pulse Oximetry 100 07/30/24 19:57 Oxygen Delivery Room Air 07/30/24 19:57 Temperature 98.2 F 07/30/24 19:57 Pulse Rate 82 07/30/24 22:25 Respiratory Rate 18 07/30/24 22:25 Blood Pressure 116/56 L 07/30/24 22:25 Pulse Oximetry 97 07/30/24 22:25 Oxygen Delivery Room Air 07/30/24 20:02 MDM - Fall MDM Narrative Medical decision making narrative: Patient tripped and fell, landing on his right side, now subsequent pain to his right ribs, happened earlier today. No obvious abrasions or bruising on skin, given his age and risk factors I did obtain CT chest, abdomen, pelvis. Unfortunately this does show likely lung cancer with a large mass to the left lung. No rib fractures or other obvious acute injuries. Patient already aware of his cirrhosis and has close follow-up. I did discuss the findings with the patient, he states he has not spread since he is a lifelong smoker. I did also discuss radiology finding/concern for possible DVT, however he has no swelling or pain to his legs, I did offer to order DVT ultrasound for tomorrow morning however patient states he cannot get to it, he does understand the risks of delayed diagnosis, but he will be following up with his primary care doctor to see if he can get this outpatient so he can arrange transport. I did let him know that if he starts having any concerning symptoms especially difficulty breathing or anything else he needs to return to the emergency room. I did discuss follow-up with pulmonology for further workup and diagnosis. Patient comfortable with outpatient management. At time of discharge he was resting comfortably in no distress, no difficulty breathing, speaking full sentences. Discharge Plan Discharge Clinical Impression: Mass of left lung Patient Disposition: Home Condition: Stable Instructions: Rib Contusion (ED) Additional Instructions: Unfortunately your CT today shows large left lung mass concerning for cancer. Please follow-up with your primary care doctor, and with a lung specialist. Your CT was also concerning for a possible blood clot in your left leg, though you did not have any swelling to your leg here today, please speak with your primary care doctor about potentially scheduling and ultrasound if you have any symptoms, or come back to the emergency room. Patient Language: Portuguese Prescriptions: New lidocaine 5 % adhesive patch,medicated 1 patch topical DAILY Qty: 15 0RF Rx Instructions: leave on most painful area for up to 12 hrs acetaminophen [Tylenol Extra Strength] 500 mg tablet 500 mg PO Q6H PRN (Reason: pain) Qty: 30 0RF Follow-up/Referrals: Cherri Brumfield MD [Physician] - 2 Days Jacques Kim MD [Primary Care Provider] -
== END 2024-07-30 22:27 | disposition home or self-care (01) ==
PROVIDERS: Emergency Provider Emergency Medicine; PCP Family Medicine
DX: S29.9XXA Unspecified injury of thorax, initial encounter (principal); R91.8 Other nonspecific abnormal finding of lung field; K74.60 Unspecified cirrhosis of liver; F17.200 Nicotine dependence, unspecified, uncomplicated; R93.89 Abnormal findings on diagnostic imaging of other specified body structures; W18.09XA Striking against other object with subsequent fall, initial encounter
CPT/HCPCS: 70450; 71250; 74176; 94640; 99284; A9270

== ENCOUNTER 2024-08-24 12:09 | Outpatient (CLI) | payer MEDICARE, MEDICAID, SELFPAY ==
--- NOTE | ~2024-08-24 | US_ITS ---
US venous doppler [facility] - 08/24/2024 14:10 CDT History: 73 years old Male with left lower extremity pain and swelling. Real-time sonographic images of the left lower extremity venous system were obtained. Color Doppler sonography and spectral waveform analysis were performed. No prior studies for comparison. The left sapheno-femoral junctions are patent. The left common femoral, superficial femoral, poplit eal and posterior tibial veins are compressible and without evidence of echogenic thrombus. Impression: No evidence of deep venous thrombosis Reviewed, dictated and finalized at location A. Impression: No evidence of deep venous thrombosis
--- OUTSIDE RECORDS SUMMARY | 2024-08-24 12:11 | XMS_ITS | Clinical Summary ---
Author Organization [facility] [employer] Address [address] [place] [address] Care Team Providers Care Rn Lab Name Role Phone Jacques Kim MD Primary Care Provider [phone] Source Comments [facility],non-owned Affiliates and Associated Physician Practices is amultiple site organization consisting of ambulatory clinics and hospital sitesin [place], [place], [place] and [place]. This disclosure is being madepursuant to the Care Everywhere program and may not contain all information available regarding this patient. Last updated 17.[facility] [employer] Allergies Active Allergy Reactions Criticality Noted Date [...] Grams (4000 mg) / 24 hours. Active metoprolol succinate XL 24hr (TOPROL XL) 25 MG tablet Take 1 (one) tablet by mouth once daily 08/12/19 20 Active lisinopril (PRINIVIL; ZESTRIL) 20 MG tablet Take 1 (one) tablet by mouth once daily 02/20/19 21 Active Multiple Vitamin (MULTIVITAMIN ADULT PO) Active sildenafil (VIAGRA) 100 MG tablet Take 0.5 (one-half) tablet by mouth once daily as needed (take 1 tablet daily as needed 1 hour prior to intercourse on empty stomach) 1 hour prior to intercourse 10 tablet 01/01/20 21 Active Magnesium 400 MG Take 400 mg by mouth once daily Active rosuvastatin (Crestor) 20 MG tablet Take 1 (one) tablet by mouth at bedtime 10/05/19 22 Active Cyanocobalamin (B-12) 250 MCG Take 1 (one) tablet by mouth once daily Active Potassium 99 MG tablet Take 1 (one) tablet by mouth once daily Active Coenzyme Q10 (CoQ10) 100 MG Activ e famotidine (Pepcid) 40 MG tablet TAKE 1 TABLET BY MOUTH EVERY DAY 90 tablet 1 05/20/19 25 Active buPROPion SR 12hr (WELLBUTRIN-SR ) 150 MG tablet Take 1 (one) tablet by mouth once daily 07/23/19 20 025 Discontin ued(List Clean-Up) albuterol HFA (PROVENTIL;DUYEN TOLIN;PROAIR) 108 (90 Base) MCG/ACT inhaler 07/25/19 21 025 Discontin ued(List Clean-Up) cyclobenzaprin e (Flexeril) 10 MG tablet 1 (one) tablet 3 times daily as needed 01/18/20 22 025 Discontin ued(List Clean-Up) Active Problems Problem Noted Date Diagnosed Date [...] nodular liver, multiple indeterminate hypodensities 01/11/19 MRI ([facility]): nodular liver, no focal lesions, mild splenomegaly, [...] Encounters Date Type Department Care Team Description 08/01/2024 1:30 PM CDT Office Visit [facility] - GI [address] [facility] [address] [facility] [address] [facility], [place] [address] NeuHardeep Miranda MD 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) 08/01/2024 Travel 07/27/2024 10:14 AM CDT - 07/27/2024 11:59 PM CDT Hospital Encounter [facility] OP DRAW STATION [address] [place] [address] Hardeep Novak MD Discharge Disposition: Home or Self Care 07/27/2024 9:09 AM CDT - 07/27/2024 9:39 AM CDT Hospital Encounter [facility] [address] [place] [address] Hardeep Novak MD Discharge Disposition: Home or Self Care 07/27/2024 Travel 06/30/2024 Telephone [facility] - GI [address] [place] [address], [place] [address] Demi Landin RN Future Appointment 05/30/2024 Orders Only [facility] - Urology [address] [place] [address], [place] [address] Trini Stephenson LPN from Last 3 Months Immunizations Immunization Administration [...] Sex Assigned at Male 04/02/2022 9:58 AM SOFA BACK UPHOLSTERER Legal Sex Male 5:14 PM SOFA BACK UPHOLSTERER Gender Identity Male 04/02/2022 9:58 AM SOFA BACK UPHOLSTERER Sexual Orientation Straight 04/02/2022 9: 58 AM SOFA BACK UPHOLSTERER Last Filed Vital Signs Vital Sign Reading Time Taken Comments Blood Pressure 125/53 08/01/2024 2:19 PM CDT Pulse 66 08/01/2024 2:19 PM CDT Temperature 36.8 C (98.2 F) 08/10/2023 1:06 PM CDT Respiratory Rate 18 01/12/2023 2:11 PM SOFA BACK UPHOLSTERER Oxygen Saturation 99% 08/01/2024 2:19 PM CDT Inhaled Oxygen Concentration 21% 10/20/2018 7 :15 AM CDT Weight 101 kg (222 lb 9.6 oz) 08/01/2024 2:19 PM CDT Height 175.3 cm (5' 9) 08/01/2024 2:19 PM CDT Body Mass Index 32.87 08/01/2024 2:19 PM CDT Plan of Treatment Upcoming Encounters Date Type Department Care Team (Late st Contact Info) Description 02/06/2025 12:30 PM SOFA BACK UPHOLSTERER Appointment [facility] [address] [place] [phone] Hardeep Cohen MD [address] [place] [address] [address] DIV [place] [address] 02/06/2025 1:30 PM SOFA BACK UPHOLSTERER Office Visit [facility] - GI [address] [place] [address], [place] [id number] Hardeep Cohen MD [address] [place] [address] [address] [place] [address] Health Maintenance Due Date Last Done Comments [...] 2023 06/12/2020, 05/15/2020 DEPRESSION SCREENING 02/17/2024 MEDICARE AW CALENDAR YEAR 2024 SCREENING FOR DIABETES 07/28/2027 [...] Patient-Stated? Author Medication Management General On track( 025 2:19 PM CDT) Sarah Beth Govea, RN Note: Expected end date: ongoing Interventions: [...] 10:32 AM CDT Liver cirrhosis secondary to MASH Prostate cancer (CMS/HCC) Malignant neoplasm of prostate [...] A1c 5.2 <=5.6 % 07/27/2024 12:09 PM [facility] Estimated Average Glucose 103 mg/dL 07/27/2024 12:09 PM [facility] Comment: HbA1c Interpretation: Normal : < 5.7% Pre-diabetes: 5.7-6.4% Diabetes: Equal to or greater than 6.5% Test results diagnostic of diabetes should be repeated for confirmation. Treatment target values recommended by ADA and other clinical organizations should be used to evaluate metabolic control in patients. Reference: [place] Diabetes Association, Standards of Care in Diabetes -2020 In patients 70 years and older consider HbA1c target range of 7.0-7.5% (Reference: Gato Barber et al. JAMDA. 2012) The Sebia assay for the measurement of HbA1c is a National Glycohemoglobin Standardization Program (NGSP) certified method. Blood BLOOD SPECIMEN WITH EDTA / Unknown Lab Venipuncture / Unknown 07/27/2024 10:32 AM CDT 07/27/2024 10:57 AM CDT Jacques Kim MD LAB - CHEMISTRY ORDERABLES F inal Result Performing Organization Address [facility]/ZIP Co de Phone Number [address] [address], [place] [phone] * PROSTATE SPECIFIC ANTIGEN SCREEN (07/27/2024 10:32 AM CDT) PSA Total 2.2 <4.0 ng/mL 07/27/2024 12:19 PM CDT [facility] Blood BLOOD SPECIMEN / Unknown Lab Venipuncture / Unknown 07/27/2024 10:32 AM CDT 07/27/2024 10:57 AM CDT Narrative [facility] - 07/27/2024 12:19 PM CDT PSA values will vary depending on the testing procedure used. Results are not comparable across different test methods. [facility] uses the Tompkins Alinity immunoassay test method. Jacques Kim MD LAB - CHEMISTRY ORDERABLES F inal Result Performing Organization Address [facility] Co de Phone Number [address] [address], [place] [phone] * PT-INR [facility] (07/27/2024 10:25 AM CDT) PT 14.3 12.1 - 14.8 Seconds 07/27/2024 11:30 AM CDT [facility] INR 1.1 See Comment 07/27/2024 11:30 AM CDT [facility] Comment:The suggested therap eutic range for standard coumadin (warfarin) therapy is an INR of 2.0-3.0. For high-risk patients (Mechanical Mitral Valve Prosthesis, etc.), the suggested prophylactic therapeutic range is an INR of 2.5-3.5. Blood BLOOD SPECIMEN / Unknown Lab Venipuncture / Unknown 07/27/2024 10:25 AM CDT 07/27/2024 10:57 AM CDT Hardeep Cohen MD LAB - COAGULATION ORDERABLES Final Result Performing Organization Address [facility] Co de Phone Number [address] [address], [place] [phone] * ALPHA FETOPROTEIN BLOOD TUMOR MARKER (07/27/2024 10:25 AM CDT) [facility] Alpha-Fetoprote in Tumor Marker 3.6 <=8.3 ng/mL 07/27/2024 12:23 PM CDT [facility] Comment: AFP values will vary depending on testing procedure used. Results are not comparable across different methods. AFP values obtained by [facility] using an Tompkins Alinity Immunoassay. Blood BLOOD SPECIMEN / Unknown Lab Venipuncture / Unknown 07/27/2024 10:25 AM CDT 07/27/2024 10:57 AM CDT us Hardeep Cohen MD LAB - CHEMISTRY OR DERABLES Final Result Performing Organization Address [facility] de Phone Number [address] [address], [place] [phone] * (ABNORMAL) CBC W/ DIFFERENTIAL (07/27/2024 10:25 AM CDT) [facility] WBC 4.1 4.0 - 10.7 x10E9/L 07/27/2024 11:15 AM CDT [facility] RBC Count 3.95(L) 4.30 - 5.80 x10E12/L 07/27/2024 11:15 AM CDT [facility] Hemoglobin 13.6 13.3 - 17.5 g/dL 07/27/2024 11:15 AM [facility] Hematocrit 38.6(L) 38.7 - 51.1 % 07/27/2024 11:15 AM [facility] MCV 97.7 80.0 - 98.0 fL 07/27/2024 11:15 AM [facility] MCH 34.4(H) 26.7 - 33.6 pg 07/27/2024 11:15 AM [facility] MCHC 35.2 31.7 - 36.3 g/dL 07/27/2024 11:15 AM [facility] RDW-CV 12.3 11.3 - 14.8 % 07/27/2024 11:15 AM [facility] Platelet Count 163 150 - 420 x10E9/L 07/27/2024 11:15 AM [facility] MPV 10.1 7.8 - 11.4 fL 07/27/2024 11:15 AM [facility] Neutrophil % 39.1(L) 41.0 - 74.0 % 07/27/2024 11:15 AM [facility] Lymphocyte % 40.8 17.0 - 47.0 % 07/27/2024 11:15 AM [facility] Monocyte % 12.8(H) 3.0 - 11.0 % 07/27/2024 11:15 AM [facility] Eosinophil % 6.3 0.0 - 7.0 % 07/27/2024 11:15 AM [facility] Basophil % 1.0 0.0 - 1.6 % 07/27/2024 11:15 AM [facility] Immature Granulocytes % 0.0 0.0 - 1.0 % 07/27/2024 11:15 AM [facility] Neutrophil Absolute 1.62 1.60 - 7.50 x10E9/L 07/27/2024 11:15 AM [facility] Lymphocyte Absolute 1.69 1.00 - 4.40 x10E9/L 07/27/2024 11:15 AM [facility] Monocyte Absolute 0.53 0.15 - 1.00 x10E9/L 07/27/2024 11:15 AM [facility] Eosinophil Absolute 0.26 0.00 - 0.60 x10E9/L 07/27/2024 11:15 AM [facility] Basophil Absolute 0.04 0.00 - 0.13 x10E9/L 07/27/2024 11:15 AM [facility] Blood BLOOD SPECIMEN / Unknown Lab Venipuncture / Unknown 07/27/2024 10:25 AM CDT 07/27/2024 10:57 AM CDT us Hardeep Cohen MD LAB - HEMATOLOGY O RDERABLES Final Result [facility] [address] [place] [address], [facility] [phone] * (ABNORMAL) COMPREHENSIVE METABOLIC PANEL (07/27/2024 10:25 AM CDT) BUN 18 7 - 26 mg/dL 07/27/2024 12:16 PM [facility] Creatinine 1.16 0.71 - 1.16 mg/dL 07/27/2024 12:16 PM [facility] Sodium 139 136 - 145 mmol/L 07/27/2024 12:16 PM [facility] Potassium 4.7(H) 3.5 - 4.5 mmol/L 07/27/2024 12:16 PM [facility] Chloride 108(H) 98 - 107 mmol/L 07/27/2024 12:16 PM [facility] CO2 21(L) 22 - 29 mmol/L 07/27/2024 12:16 PM [facility] Glucose 90 70 - 99 mg/dL 07/27/2024 12:16 PM [facility] Calcium 9.6 8.4 - 10.2 mg/dL 07/27/2024 12:16 PM [facility] Protein Total 7.1 6.0 - 8.3 g/dL 07/27/2024 12:16 PM [facility] Albumin 3.5 3.4 - 5.0 g/dL 07/27/2024 12:16 PM CDT [facility] Bilirubin Total 1.0 0.2 - 1.2 mg/dL 07/27/2024 12:16 PM [facility] Alkaline Phosphatase 74 40 - 150 U/L 07/27/2024 12:16 PM [facility] ALT 20 5 - 55 U/L 07/27/2024 12:16 PM [facility] AST 40(H) 5 - 34 U/L 07/27/2024 12:16 PM [facility] Anion Gap 10 6 - 16 07/27/2024 12:16 PM [facility] BUN/Creatinine Ratio 16 7 - 23 07/27/2024 12:16 PM [facility] Osmolality Calculated 289 275 - 295 mOsm/kg 07/27/2024 12:16 PM [facility] Albumin/Globulin Ratio 1.0(L) 1.1 - 2.3 07/27/2024 12:16 PM [facility] eGFR by CKD-EPI 67(L) >=90 mL/min/1.7 3 m2 07/27/2024 12:16 PM [facility] Blood BLOOD SPECIMEN / Unknown Lab Venipuncture / Unknown 07/27/2024 10:25 AM CDT 07/27/2024 10:57 AM CDT [facility] - 07/27/2024 12:16 PM CDT Estimated Glomerular Filtration Rate (eGFR) calculated using the CKD-EPI Creatinine Equation (2020), per the National Kidney Foundation and [place] Society of Nephrology recommendations. us Hardeep Cohen MD LAB - CHEMISTRY OR DERABLES Final Result [facility] [address] [place] [address], [facility] [phone] * US Abdomen Limited (07/27/2024 9:35 AM [...] DATE/TIME OF EXAM: 07/27/2024 9:35 AM, LOCATION [facility] INDICATION: K75.81: Liver cirrhosis secondary to ROBLES [...] DATE/TIME OF EXAM: 07/27/2024 9:35 AM, LOCATION [facility] INDICATION: K75.81: Liver cirrhosis secondary to ROBLES [...] entire procedure. Procedure Code(s): --- Professional --- 14749, Colonoscopy, flexible; with biopsy, single or multiple Diagnosis Code(s): --- Professional --- Z86.010, Personal history of colonic polyps D12.2, Benign neoplasm of ascending colon K57.30, Diverticulosis of large intestine without perforation or abscess without bleeding CPT copyright 2021 [place] [employer]. All rights reserved. The codes documented in this report are preliminary and upon director case management review may be revised to meet current compliance requirements. Hardeep Modi MD 09/23/2022 9:15:24 AM This report has been signed electronically. Note Initiated On: 09/23/2022 8:21 AM Number of Addenda: [address] PROVATION 09/23/2022 8:21 AM CDT Hardeep Cohen MD GI PROCEDURE ORDER BUCK Edited Result - Final [facility] PROVATION from Last 3 Months or Most Recently Relevant to Health Maintenance Insurance [employer] [place] [address] MEDICARE Care Teams Rn Lab Relationship Specialty Start Date End Date Jacques Kim MD [address] [place], [place] [id number] PCP - General 08/17/19
--- OUTSIDE RECORDS SUMMARY | 2024-08-24 12:11 | XMS_ITS | Referral Summary ---
Author Organization [facility] Address [address] [place] [address] Phone Care Team Providers Care Box Sealing Machine Operator Name Role Phone Jeremias Spencer MD Unavailable [phone] Jacques Kim MD Primary Care Provider [phone] Allergies Active Allergy Reactions Criticality Noted Date Comments Sulfasalazine Rash Medium 03/27/2014 Medications ibuprofen (ADVIL,MOTRIN) 400 mg tablet 03/03/2017Ibupr ofen, po solid 400 mg [id number] PRN painCurrent Medication 8 Active albuterol HFA [...] Date Smoking Tobacco: Every Day Cigarettes 1 59.9 Started: 10/06/1963 Smokeless Tobacco: Never Tobacco Cessation:Ready [...] on file Legal Sex Male 6:32 PM SENIOR APPLICATIONS ARCHITECT Gender Identity Not on file Sexual Orientation [...] Plan of Treatment Not on file Insurance [facility] LiveRe CON IDPA [facility] MEDIC[facility] Address: [facility] [address] [place] [address] [facility] MEDIC[facility] Address: [address] [address] [place] [address] IDPA Care Teams Box Sealing Machine Operator Relationship Specialty Start Date End Date Jacques Kim MD PCP - General Family Medicine 07/28/19 Jeremias Spencer MD Medical Oncologist/Machine Container Washer Medical Oncology 01/28/19
--- OUTSIDE RECORDS SUMMARY | 2024-08-24 12:11 | XMS_ITS | Clinical Summary ---
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
--- OUTSIDE RECORDS SUMMARY | 2024-08-24 12:11 | XMS_ITS | Encounter Summary ---
Author Organization [facility] Address [address] [place] [address] [place] [address] Care Team Providers Care Desk Reporter Name Role Phone Jacques Kim MD Primary Care Provider [phone] Encounter Details Date Type Department Care Team (Late Contact Info) Description 01/23/2020 Preop Outreach [facility] [address] [place] [id number] Nellie Crocker, CONSUELO Social History Tobacco Use Types Packs/Day Years Used Date Smoking Tobacco: Every Day Cigarettes 1.5 55 Smokeless Tobacco: Never Alcohol Use Standard Drinks/Week Comments No 0 (1 standard drink = 0.6 oz pur e alcohol) Sex and Gender Information Value Date Recorded Sex Assigned at Male 04/02/2022 9:58 AM PHYSICIAN Legal Sex Male 5:14 PM PHYSICIAN Gender Identity Male 04/02/2022 9:58 AM PHYSICIAN Sexual Orientation Straight 04/02/2022 9: 58 AM PHYSICIAN COVID-19 Exposure Response Date Recorded In the last month, have you been in contact with someone who was confirmed or suspected to have Coronavirus / COVID-19? No / Unsure 01/24/2020 7:06 AM PHYSICIAN documented as of this encounter Plan of Treatment Upcoming Encounters Date Type Department Care Team (Late Contact Info) Description 02/06/2025 12:30 PM PHYSICIAN Appointment [facility] [address] [place] [address] Hardeep Cohen MD [address] [place] [address] [address] [place] [address] 02/06/2025 1:30 PM PHYSICIAN Office Visit [facility] - GI [address] [place] [address], [place] [address] Hardeep Cohen MD [address] [place] [address] [address] [place] [address] documented as of this encounter Visit Diagnoses Not on filedocumented in this encounter Care Teams Desk Reporter Relationship Specialty Start Date End Date Jacques Kim MD [address] [place] [address] PCP - General 08/17/19 documented as of this encounter
[2024-08-24 12:55] LABS: Hematocrit 38.0 % (42.0-52.0); Hemoglobin 13.0 g/dL (14.0-18.0); Immature Granulocyte Percent A 0.2 % (0-0.5); Lymphocytes Absolute Auto 1.83 K/mm3 (0.9-3.2); Mean Corpuscular HGB Conc 34.2 g/dl (32-36); Mean Corpuscular Hemoglobin 34.1 pg (26-34); Mean Corpuscular Volume 99.7 fl (80-100); Nucleated Red Blood Cells Absolute Auto 0.000 K/mm3 (0.0-0.012); Nucleated Red Blood Cells Perc 0.0 % (0.0-0.2); Platelet Count Result 159 k/mm3 (150-375); Red Blood Count 3.81 M/mm3 (4.6-6.20); White Blood Count 5.5 K/mm3 (4.5-10.0)
[2024-08-24 16:06] LABS: Alanine Aminotransferase 23 U/L (6-50); Albumin Level 3.7 g/dL (3.5-5.1); Alkaline Phosphatase 79 U/L (38-126); Anion Gap 5 mmol/L (4-12); Aspartate Amino Transferase 74 U/L (17-59); Bilirubin,Total 0.6 mg/dL (0.2-1.3); Blood Urea Nitrogen 21 mg/dL (9-20); Calcium 9.4 mg/dL (8.4-10.2); Carbon Dioxide 26 mmol/L (22-30); Chloride 105 mmol/L (98-107); Estimated Glomerular Filt Rate > 60; Glucose 83 mg/dL (65-110); Potassium 4.4 mmol/L (3.4-5.0); Sodium 136 mmol/L (137-145); Total Protein 7.2 g/dL (6.3-8.2)
== END 2024-08-24 12:10 | disposition home or self-care (01) ==
PROVIDERS: Internal Medicine Critical Care Medicine; PCP Family Medicine; Visit Provider Family Medicine
DX: R59.1 Generalized enlarged lymph nodes (principal); R91.8 Other nonspecific abnormal finding of lung field; I82.402 Acute embolism and thrombosis of unspecified deep veins of left lower extremity
CPT/HCPCS: 36415; 80053; 85025; 86480; 93971

== ENCOUNTER 2024-10-07 22:23 | Emergency (ER) | payer MEDICARE, MEDICAID, SELFPAY ==
[2024-10-07] VITALS (7 sets, daily range): BP systolic 153; BP diastolic 81; PULSE 104–117; RESP 24–26; TEMP 36.4; O2SAT 92–96
--- NOTE | ~2024-10-07 | CT_ITS ---
EXAMINATION: CTA chest PE abdomen pel DATE: 10/08/2024 00:20 INDICATION: TECHNIQUE: Computed tomographic angiography (CTA) of the chest and abdomen was performed without and with 100 mL Omnipaque-350 intravenous contrast. The dose- length product was 2179.08 mGy-cm. Maximum intensity projection 3D- reconstructions of the aorta and other arteries were constructed by the techno logist on a separate workstation. COMPARISON: CT dated 07/30/2024. FINDINGS: CHEST CTA: Study is technically adequate without evidence for pulmonary embolism. There is atherosclerosis of the aorta. There is extensive mediastinal lymphadenopathy. There is consolidation of the left upper lobe, consistent with pneumonia. There are multiple pulmonary nodules/masses in the left upper lobe, consistent with known malignancy. Heart size normal. ABDOMEN CTA: There is cirrhosis of the liver. There are calcified granulomas of the spleen. The pancreas, adrenal glands are unremarkable. There are small low-density lesions in both kidneys, most likely benign cysts. There is abnormal thickening of the duodenum with mucosal enhancement, suspicious for duodenitis. Nonobstructive bowel gas pattern. There is moderate-severe lumbar spondylosis. There is mild wedge compression deformity of L2, likely chronic. There is moderate thoracic spondylosis. No focal lytic or blastic lesions are identified. IMPRESSION: 1. Multiple pulmonary nodules/masses in the left lung which are partially obscured by overlying airspace disease, compatible with known malignancy, likely either primary or metastatic disease. There is superimposed pneumonia. 2: Extensive mediastinal lymphadenopathy, consistent with metastatic disease. 3: Cirrhosis of the liver. Reviewed, dictated and finalized at location O. IMPRESSION: 1. Multiple pulmonary nodules/masses in the left lung which are partially obscu red by overlying airspace disease, compatible with known malignancy, likely eit her primary or metastatic disease. There is superimposed pneumonia. 2: Extensive mediastinal lymphadenopathy, consistent with metastatic disease. 3: Cirrhosis of the liver.
--- NOTE | ~2024-10-07 | XR_ITS ---
XR chest 1V portable 10/07/2024 23:54 Indication: Shortness of breath Procedure: AP portable chest Comparison: No prior studies for comparison. Findings: Asymmetric left-sided airspace disease with moderate left pleural effusion. Central line tip in the SVC. There are calcified right hilar lymph nodes. Impression: 1: Asymmetric left-sided airspace disease, compatible with pneumonia. 2: Moderate-large left pleural effusion. Reviewed, dictated and finalized at location O. Impression: 1: Asymmetric left-sided airspace disease, compatible with pneumonia. 2: Moderate-large left pleural effusion.
--- NOTE | 2024-10-07 23:03 | PC.NURSE ---
Pt asked to have port accessed. Bandage removed from port site and it is red and warm to the touch. Yris WAGNER at bedside looking at port and said it is okay to use.
--- OUTSIDE RECORDS SUMMARY | 2024-10-07 23:13 | XMS_ITS | Encounter Summary ---
Author Organization [facility] Address [facility] [place] [address] Care Team Providers Care Safety Inspector Name Role Phone Jacques Kim MD Primary Care Provider Tomasa Correa MD Unavailable [phone] Encounter Details Date Type Department Care Team (Late st Contact Info) Description 09/30/2024 Orders Only [facility] [address] [place] [phone] Elsa Santos PharmD Social History Tobacco Use Types Packs/Day Years Used Date Smoking Tobacco: Every Day Cigarettes 0.5 55 Smokeless Tobacco: Never Alcohol Use Standard Drinks/Week Comments No 0 (1 standard drink = 0.6 oz pur e alcohol) AUDIT-C Answer Date Recorded Q1: How often do you have a drink containing alcohol? Never 09/29/2024 Q2: How many drinks containi ng alcohol do you have on a typical day when you are drinking? Patient does not drink Q3: How often do you have si x or more drinks on one occasion? Never 09/29/2024 Overall Financial Resource Strain (CARDIA) Answe r Date Recorded How hard is it for you to pa y for the very basics like food, housing, medical care, and heating? Not hard at all 09/29/2024 [facility] [place] of Occupat ional Health - Occupational Stress Questionnaire Answer Date Recorded Do you feel stress - tense, restless, nervous, or anxious, or unable to sleep at night because your mind is troubled all the time - these days? Only a little 09/29/2024 Hunger Vital Sign Answer Date Recorded Within the past 12 months, y ou worried that your food would run out before you got the money to buy more. Never true 09/30/19 25 Within the past 12 months, t he food you bought just didn't last and you didn't have money to get more. Never true 09/29/2024 PRAPARE - Transportation Answer Date Re corded In the past 12 months, has l ack of transportation kept you from medical appointments or from getting medications? No 09/16 In the past 12 months, has l ack of transportation kept you from meetings, work, or from getting things needed for daily living? No 09/29/2024 Housing Stability Vital Sign Answer Kendrick e Recorded In the last 12 months, was t here a time when you were not able to pay the mortgage or rent on time? No 09/29/2024 In the past 12 months, how m any times have you moved where you were living? 0 09/29/2024 At any time in the past 12 m [facility], were you homeless or living in a group home (including now)? No 09/29/2024 Sex and Gender Information Value Date Recorded Sex Assigned at Male 04/02/2022 9:58 AM LINE MAINTENANCE Legal Sex Male 5:14 PM LINE MAINTENANCE Gender Identity Male 04/02/2022 9:58 AM LINE MAINTENANCE Sexual Orientation Straight 04/02/2022 9: 58 AM LINE MAINTENANCE documented as of this encounter Functional Status * Is person deaf or have serious hearing difficulty? Answer Date of Assessment Author Yes 09/29/2024 3:14 PM CINDYT Alverto Burrell RN * Is person blind or have serious difficulty seeing? Answer Date of Assessment Author No 09/29/2024 3:14 PM CINDYT Alverto Burrell RN * Does person have serious difficulty walking/climbing stairs? Answer Date of Assessment Author No 09/29/2024 3:14 PM CDT Alverto Burrell RN * Does person have difficulty dressing/bathing? Answer Date of Assessment Author No 09/29/2024 3:14 PM CDT Alverto Burrell RN * Does person have difficulty doing errands alone? Answer Date of Assessment Author Yes 09/29/2024 3:14 PM CDT Alverto Burrell RN documented as of this encounter Mental Status * Does person have difficulty concentrating/remembering/making decisions? Answer Entry Date Author No 09/29/2024 3:14 PM CDT Alverto Burrell RN documented in this encounter Plan of Treatment Upcoming Encounters Date Type Department Care Team (Late st Contact Info) Description 10/25/2024 10:40 AM CDT Appointment [facility] [address] [place] [address] 10/25/2024 11:20 AM CDT Office Visit [facility] - Hematology/Oncology [address] [place] [phone] Yaima Rodriguez, DO [facility] [place] [address] 10/26/2024 10:30 AM CDT Appointment [facility] [address] [place] [address] 10/27/2024 10:30 AM CDT Appointment [facility] [address] [place] [address] 11/03/2024 8:00 AM CDT Office Visit [facility] - Pulmonology [address] [place] [address], [place] [address] Yifan Potter MD [address] [place] [address] 2L DIV OF PULMONARY/[place] [address] 02/06/2025 12:30 PM LINE MAINTENANCE Appointment [facility] [id number] [place] [address] Hardeep Cohen MD [address] [place] [address] 2L [place] [address] 02/06/2025 1:30 PM LINE MAINTENANCE Office Visit [facility] - GI [address] [place] [address], [place] [address] Hardeep Cohen MD [address] [place] [address] 2[address] [place] [address] documented as of this encounter Goals Goal Patient Goal Type Associated Problems [...] one week prior to your last dose documented as of this encounter Visit Diagnoses Not on filedocumented in this encounter Care Teams Safety Inspector Relationship Specialty Start Date End Date Jacques Kim MD [address] [facility] [address] [place] [address] PCP - General 08/17/19 Tomasa Correa MD [address] [facility] 3 [place] [address] Hematology and Oncology 09/27/24 documented as of this encounter
--- OUTSIDE RECORDS SUMMARY | 2024-10-07 23:13 | XMS_ITS | Clinical Summary ---
Author Organization [facility] Address [address] [place] [address] Phone Care Team Providers Care Plate Straightener Name Role Phone Jeremias Spencer MD Unavailable [phone] Jacques Kim MD Primary Care Provider [phone] Allergies Active Allergy Reactions Criticality Noted Date Comments Sulfasalazine Rash Medium 03/27/2014 Medications ibuprofen (ADVIL,MOTRIN) 400 mg tablet 03/03/2017Ibupr ofen, po solid 400 mg [id number] PRN painCurrent Medication 8 Active albuterol HFA [...] Date Smoking Tobacco: Every Day Cigarettes 1 60 Started: 10/06/1963 Smokeless Tobacco: Never Tobacco Cessation:Ready [...] on file 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
--- OUTSIDE RECORDS SUMMARY | 2024-10-07 23:13 | XMS_ITS | Encounter Summary ---
Author Organization [facility] Address [address] [facility] [place] [address] Care Team Providers Care Fitness And Wellness Instructor Name Role Phone Jacques Kim MD Primary Care Provider Tomasa Correa MD Unavailable [phone] Encounter Details Date Type Department Care Team (Late st Contact Info) Description 01/23/2020 Preop Outreach [facility] [address] [place] [phone] Nellie Corcker RN Social History Tobacco Use Types Packs/Day Years Used Date Smoking Tobacco: Every Day Cigarettes 1.5 55 Smokeless Tobacco: Never Alcohol Use Standard Drinks/Week Comments No 0 (1 standard drink = 0.6 oz pur e alcohol) Sex and Gender Information Value Date Recorded Sex Assigned at Male 04/02/2022 9:58 AM GROMMET MACHINE OPERATOR Legal Sex Male 5:14 PM GROMMET MACHINE OPERATOR Gender Identity Male 04/02/2022 9:58 AM GROMMET MACHINE OPERATOR Sexual Orientation Straight 04/02/2022 9: 58 AM GROMMET MACHINE OPERATOR COVID-19 Exposure Response Date Recorded In the last month, have you been in contact with someone who was confirmed or suspected to have Coronavirus / COVID-19? No / Unsure 01/24/2020 7:06 AM GROMMET MACHINE OPERATOR documented as of this encounter Plan of Treatment Upcoming Encounters Date Type Department Care Team (Late st Contact Info) Description 10/25/2024 10:40 AM CDT Appointment [facility] [address] [place] [address] 10/25/2024 11:20 AM CDT Office Visit [facility] - Hematology/Oncology [address] [place] [phone] Yaima Rodriguez, DO [address] [place] [address] 10/26/2024 10:30 AM CDT Appointment [facility] [address] [place] [address] 10/27/2024 10:30 AM CDT Appointment [facility] [address] [place] [address] 11/03/2024 8:00 AM CDT Office Visit [facility] - Pulmonology [address] [place] [address] [place] [address] Yifan Potter MD [address] [place] [address] 2L DIV OF PULMONARY/[place] [address] 02/06/2025 12:30 PM GROMMET MACHINE OPERATOR Appointment [facility] [address] [place] [address] Hardeep Cohen MD [address] [place] [address] 2L [place] [address] 02/06/2025 1:30 PM GROMMET MACHINE OPERATOR Office Visit [facility] - GI [address] [place] [address] [place] [address] Hardeep Cohen MD [address] [place] [address] [address] [place] [address] documented as of this encounter Visit Diagnoses Not on filedocumented in this encounter Care Teams Fitness And Wellness Instructor Relationship Specialty Start Date End Date Jacques Kim MD [address] [facility] [address] [place] [address] PCP - General 08/17/19 Tomasa Correa MD [address] [address] Hematology and Oncology 09/27/24 documented as of this encounter
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
--- OUTSIDE RECORDS SUMMARY | 2024-10-07 23:15 | XMS_ITS ---
Author Organization [facility] Address [address] [place] [address] Care Team Providers Care Climatology Teacher Name Role Phone Jacques Kim MD Primary Care Provider [phone] Tomasa Correa MD Unavailable [phone] Active Problems Problem Noted Date Diagnosed Date Aseptic Hypotension 2/2 hypovelmia 09/30/2024 Assessment & Plan (10/04/2024 11:07 AM CDT): Hypotensive episodes after thoracentesis, resolved with IVF. Continue to monitor Assessment & Plan (10/03/2024 1:13 PM CDT): Hypotensive episodes after thoracentesis, resolved with IVF. Pulm consulted for recs, will obtain thora prior to discharge. Will closely monitor volume status and give IVF if he becomes hypotensive Plan: - F/u echo Assessment & Plan (10/02/2024 1:10 PM CDT): - 2 episodes of hypotension after 3L pleural fluid removed during thoracentesis and post anesthesia for port placement - Initially infectious workup, but less likely infectious cause due to episodic nature related to decreases in preload - likely preload dependent and sensitive to fluid shifts - POCUS showed no evidence R heart strain - echo ordered - concern for PE iso recurring malignant pleural effusion and AHRF - CT PE negative - maintenance fluids 100 cc/hr - blood cultures NG 24hr - d/c antibiotics Plan: - continue fluids - fu echo Assessment & Plan (10/01/2024 1:44 PM CDT): - 2 episodes of hypotension after 3L pleural fluid removed during thoracentesis and post anesthesia for port placement - Initially infectious workup, but less likely infectious cause due to episodic nature related to decreases in preload - likely preload dependent and sensitive to fluid shifts - concern for PE iso recurring malignant pleural effusion and AHRF - maintenance fluids 125 cc/hr - blood cultures pending - d/c antibiotics Plan: - continue fluids - echo for R heart strain - CT PE SCAR (acute kidney injury) 09/30/2024 Hyperkalemia 09/30/2024 Assessment & Plan (10/04/2024 11:07 AM CDT): - likely 2/2 TLS. Will CTM. Assessment & Plan (10/03/2024 11:17 AM CDT): - likely 2/2 TLS, maintenance fluids, TLS labs. Will CTM. 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 Ideally please get patient to 7N. He is consented for chemotherapy and the first cycle can go through PIV. - Order daily CBC with diff, TLS Labs (K, Ca, Phos, Cr, Uric Acid) 09/29 - Allopurinol 300mg on him today for TLS Ppx - chemo to start this evening - fluids at 75 ml/hour to tomorrow morning and reassess - official recs pending 10/01 - Continue C1D3 Carboplatin and Etoposide - Monitor TLS labs Q12H and manage electrolytes PRN - Continue allopurinol 300mg. Start K-binder for hyperkalemia and increase rate of IVF for SCAR and TLS risk. - Infectious workup and antibiotics per primary team - Consider pulmonology consult for worsening pleural effusion - CT angio chest PE ordered by primary team - IR port placement 09/30 - MRI brain wwo cont no evidence metastasis - Pulm consult: - thora performed 09/29 with 3L removed - pleural fluid studies consistent with malignant exudative effusion - post-procedure cxr - Minimally improved lung aeration the left lung base. Persistent large left pleural effusion with near complete lung collapse. No pneumothorax. Heart size is unchanged. - 09/30 new oxygen requirement to 5L and hypotensive episodes requiring fluids and pressors. Now HDS. 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 Ideally please get patient to 7[facility]. He is consented for chemotherapy and the first cycle can go through PIV. - Order daily CBC with diff, TLS Labs (K, Ca, Phos, Cr, Uric Acid) 09/29 - Allopurinol 300mg on him today for TLS Ppx - chemo to start this evening - fluids at 75 ml/hour to tomorrow morning and reassess - official recs pending 10/01 - Continue C1D3 Carboplatin and Etoposide - Monitor TLS labs Q12H and manage electrolytes PRN - Continue allopurinol 300mg. Start K-binder for hyperkalemia and increase rate of IVF for SCAR and TLS risk. - Infectious workup and antibiotics per primary team - Consider pulmonology consult for worsening pleural effusion - CT angio chest PE ordered by primary team - IR port placement 09/30 - MRI brain wwo cont no evidence metastasis - Pulm consult: - thora performed 09/29 with 3L removed - pleural fluid studies consistent with malignant exudative effusion - post-procedure cxr pending - Repeat CXR 09/29 - Minimally improved lung aeration the left lung base. Persistent large left pleural effusion with near complete lung collapse. No pneumothorax. Heart size is unchanged. - 09/30 new oxygen requirement to 5L and hypotensive episodes requiring fluids and pressors. Now HDS. 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 Ideally please get patient to 7[facility]. He is consented for chemotherapy and the first cycle can go through PIV. - Order daily CBC with diff, TLS Labs (K, Ca, Phos, Cr, Uric Acid) 09/29 - Allopurinol 300mg on him today for TLS Ppx - chemo to start this evening - fluids at 75 ml/hour to tomorrow morning and reassess - official recs pending - IR port placement today - MRI brain wwo cont no evidence metastasis - Pulm consult: - thora performed 09/29 with 3L removed - pleural fluid studies consistent with malignant exudative effusion - post-procedure cxr pending - Repeat CXR 09/29 - Minimally improved lung aeration the left lung base. Persistent large left pleural effusion with near complete lung collapse. No pneumothorax. Heart size is unchanged. - new oxygen requirement to 5L and hypotensive episodes requiring fluids and pressors. Now HDS. 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 Ideally please get patient to 7[facility]. He is consented for chemotherapy and the first cycle can go through PIV. - Order daily CBC with diff, TLS Labs (K, Ca, Phos, Cr, Uric Acid) 09/29 - Allopurinol 300mg on him today for TLS Ppx - chemo to start this evening - fluids at 75 ml/hour to tomorrow morning and reassess - official recs pending - IR port placement today - MRI brain wwo cont pending - Pulm consult: - thora performed today with 3L removed - pleural fluid studies pending - post-procedure cxr pending PLAN: - start allopurinol - Follow up MRI Brain Wwo Cont - Follow up labs, monitor for TLS - continue pain regimen with bowel regimen Hypoalbuminemia 09/29/2024 Assessment & Plan (10/04/2024 11:07 AM CDT): Cancer-related anorexia, nutrition consulted, ensure TID. Assessment & Plan (10/03/2024 11:17 AM CDT): Cancer-related anorexia, nutrition consulted, ensure TID. 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, encourage PO intake Assessment & Plan (10/02/2024 7:11 AM CDT): - 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 - encourage PO Assessment & Plan (10/01/2024 1:44 PM CDT): - 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 - encourage PO Assessment & Plan (09/30/2024 7:26 AM CDT): - 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 - encourage PO Assessment & Plan (09/29/2024 3:27 PM CDT): - 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 Ideally please get patient to 7[facility]. He is consented for chemotherapy and the first cycle can go through PIV. - Order daily CBC with diff, TLS Labs (K, Ca, Phos, Cr, Uric Acid) 09/29 - Allopurinol 300mg on him today for TLS Ppx - chemo to start this evening - fluids at 75 ml/hour to tomorrow morning and reassess - official recs pending 10/01 - Continue C1D3 Carboplatin and Etoposide - Monitor TLS labs Q12H and manage electrolytes PRN - Continue allopurinol 300mg. Start K-binder for hyperkalemia and increase rate of IVF for SCAR and TLS risk. - Infectious workup and antibiotics per primary team - Consider pulmonology consult for worsening pleural effusion - CT angio chest PE ordered by primary team - IR port placement 09/30 - MRI brain wwo cont no evidence metastasis - Pulm consult: - thora performed 09/29 with 3L removed - pleural fluid studies consistent with malignant exudative effusion - post-procedure cxr - Minimally improved lung aeration the left lung base. Persistent large left pleural effusion with near complete lung collapse. No pneumothorax. Heart size is unchanged. - 09/30 new oxygen requirement to 5L and hypotensive episodes requiring fluids and pressors. Now HDS. 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 Ideally please get patient to 7[facility]. He is consented for chemotherapy and the first cycle can go through PIV. - Order daily CBC with diff, TLS Labs (K, Ca, Phos, Cr, Uric Acid) 09/29 - Allopurinol 300mg on him today for TLS Ppx - chemo to start this evening - fluids at 75 ml/hour to tomorrow morning and reassess - official recs pending 10/01 - Continue C1D3 Carboplatin and Etoposide - Monitor TLS labs Q12H and manage electrolytes PRN - Continue allopurinol 300mg. Start K-binder for hyperkalemia and increase rate of IVF for SCAR and TLS risk. - Infectious workup and antibiotics per primary team - Consider pulmonology consult for worsening pleural effusion - CT angio chest PE ordered by primary team - IR port placement 09/30 - MRI brain wwo cont no evidence metastasis - Pulm consult: - thora performed 09/29 with 3L removed - pleural fluid studies consistent with malignant exudative effusion - post-procedure cxr pending - Repeat CXR 09/29 - Minimally improved lung aeration the left lung base. Persistent large left pleural effusion with near complete lung collapse. No pneumothorax. Heart size is unchanged. - 09/30 new oxygen requirement to 5L and hypotensive episodes requiring fluids and pressors. Now HDS. 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 Ideally please get patient to 7[facility]. He is consented for chemotherapy and the first cycle can go through PIV. - Order daily CBC with diff, TLS Labs (K, Ca, Phos, Cr, Uric Acid) 09/29 - Allopurinol 300mg on him today for TLS Ppx - chemo to start this evening - fluids at 75 ml/hour to tomorrow morning and reassess - official recs pending - IR port placement today - MRI brain wwo cont no evidence metastasis - Pulm consult: - thora performed 09/29 with 3L removed - pleural fluid studies consistent with malignant exudative effusion - post-procedure cxr pending - Repeat CXR 09/29 - Minimally improved lung aeration the left lung base. Persistent large left pleural effusion with near complete lung collapse. No pneumothorax. Heart size is unchanged. - new oxygen requirement to 5L and hypotensive episodes requiring fluids and pressors. Now HDS. 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 Ideally please get patient to 7[facility]. He is consented for chemotherapy and the first cycle can go through PIV. - Order daily CBC with diff, TLS Labs (K, Ca, Phos, Cr, Uric Acid) 09/29 - Allopurinol 300mg on him today for TLS Ppx - chemo to start this evening - fluids at 75 ml/hour to tomorrow morning and reassess - official recs pending - IR port placement today - MRI brain wwo cont pending - Pulm consult: - thora performed today with 3L removed - pleural fluid studies pending - post-procedure cxr pending PLAN: - start allopurinol - Follow up MRI Brain Wwo Cont - Follow up labs, monitor for TLS - continue pain regimen with bowel regimen Chest pain, unspecified type 09/28/2024 Assessment & Plan (10/04/2024 12:33 PM CDT): - Diagnosis of SCLC (Stge IV; 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 Ideally please get patient to [facility]. He is consented for chemotherapy and the first cycle can go through PIV. - Order daily CBC with diff, TLS Labs (K, Ca, Phos, Cr, Uric Acid) 09/29 - Allopurinol 300mg on him today for TLS Ppx - chemo to start this evening - fluids at 75 ml/hour to tomorrow morning and reassess - official recs pending 10/01 - Continue C1D3 Carboplatin and Etoposide - Monitor TLS labs Q12H and manage electrolytes PRN - Continue allopurinol 300mg. Start K-binder for hyperkalemia and increase rate of IVF for SCAR and TLS risk. - Infectious workup and antibiotics per primary team - Consider pulmonology consult for worsening pleural effusion - CT angio chest PE ordered by primary team - IR port placement 09/30 - MRI brain wwo cont no evidence metastasis - Pulm consult: - thora performed 09/29 with 3L removed - pleural fluid studies consistent with malignant exudative effusion - post-procedure cxr - Minimally improved lung aeration the left lung base. Persistent large left pleural effusion with near complete lung collapse. No pneumothorax. Heart size is unchanged. - 09/30 new oxygen requirement to 5L and hypotensive episodes requiring fluids and pressors. Now HDS. 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 Ideally please get patient to [facility]. He is consented for chemotherapy and the first cycle can go through PIV. - Order daily CBC with diff, TLS Labs (K, Ca, Phos, Cr, Uric Acid) 09/29 - Allopurinol 300mg on him today for TLS Ppx - chemo to start this evening - fluids at 75 ml/hour to tomorrow morning and reassess - official recs pending 10/01 - Continue C1D3 Carboplatin and Etoposide - Monitor TLS labs Q12H and manage electrolytes PRN - Continue allopurinol 300mg. Start K-binder for hyperkalemia and increase rate of IVF for SCAR and TLS risk. - Infectious workup and antibiotics per primary team - Consider pulmonology consult for worsening pleural effusion - CT angio chest PE ordered by primary team - IR port placement 09/30 - MRI brain wwo cont no evidence metastasis - Pulm consult: - thora performed 09/29 with 3L removed - pleural fluid studies consistent with malignant exudative effusion - post-procedure cxr pending - Repeat CXR 09/29 - Minimally improved lung aeration the left lung base. Persistent large left pleural effusion with near complete lung collapse. No pneumothorax. Heart size is unchanged. - 09/30 new oxygen requirement to 5L and hypotensive episodes requiring fluids and pressors. Now HDS. 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 Ideally please get patient to 7N. He is consented for chemotherapy and the first cycle can go through PIV. - Order daily CBC with diff, TLS Labs (K, Ca, Phos, Cr, Uric Acid) 09/29 - Allopurinol 300mg on him today for TLS Ppx - chemo to start this evening - fluids at 75 ml/hour to tomorrow morning and reassess - official recs pending - IR port placement today - MRI brain wwo cont no evidence metastasis - Pulm consult: - thora performed 09/29 with 3L removed - pleural fluid studies consistent with malignant exudative effusion - post-procedure cxr pending - Repeat CXR 09/29 - Minimally improved lung aeration the left lung base. Persistent large left pleural effusion with near complete lung collapse. No pneumothorax. Heart size is unchanged. - new oxygen requirement to 5L and hypotensive episodes requiring fluids and pressors. Now HDS. 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 Ideally please get patient to 7N. He is consented for chemotherapy and the first cycle can go through PIV. - Order daily CBC with diff, TLS Labs (K, Ca, Phos, Cr, Uric Acid) 09/29 - Allopurinol 300mg on him today for TLS Ppx - chemo to start this evening - fluids at 75 ml/hour to tomorrow morning and reassess - official recs pending - IR port placement today - MRI brain wwo cont pending - Pulm consult: - thora performed today with 3L removed - pleural fluid studies pending - post-procedure cxr pending PLAN: - start allopurinol - Follow up MRI Brain Wwo Cont - Follow up labs, monitor for TLS - continue pain regimen with bowel regimen Assessment & Plan (09/29/2024 2:21 AM CDT): - Diagnosis of SCLC (Stge IV; 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 Ideally please get patient to 7N. He is consented for chemotherapy and the first cycle can go through PIV. 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 Ideally please get patient to 7N. He is consented for chemotherapy and the first cycle can go through PIV. - Order daily CBC with diff, TLS Labs (K, Ca, Phos, Cr, Uric Acid) 09/29 - Allopurinol 300mg on him today for TLS Ppx - chemo to start this evening - fluids at 75 ml/hour to tomorrow morning and reassess - official recs pending 10/01 - Continue C1D3 Carboplatin and Etoposide - Monitor TLS labs Q12H and manage electrolytes PRN - Continue allopurinol 300mg. Start K-binder for hyperkalemia and increase rate of IVF for SCAR and TLS risk. - Infectious workup and antibiotics per primary team - Consider pulmonology consult for worsening pleural effusion - CT angio chest PE ordered by primary team - IR port placement 09/30 - MRI brain wwo cont no evidence metastasis - Pulm consult: - thora performed 09/29 with 3L removed - pleural fluid studies consistent with malignant exudative effusion - post-procedure cxr - Minimally improved lung aeration the left lung base. Persistent large left pleural effusion with near complete lung collapse. No pneumothorax. Heart size is unchanged. - 09/30 new oxygen requirement to 5L and hypotensive episodes requiring fluids and pressors. Now HDS. 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 Ideally please get patient to 7N. He is consented for chemotherapy and the first cycle can go through PIV. - Order daily CBC with diff, TLS Labs (K, Ca, Phos, Cr, Uric Acid) 09/29 - Allopurinol 300mg on him today for TLS Ppx - chemo to start this evening - fluids at 75 ml/hour to tomorrow morning and reassess - official recs pending 10/01 - Continue C1D3 Carboplatin and Etoposide - Monitor TLS labs Q12H and manage electrolytes PRN - Continue allopurinol 300mg. Start K-binder for hyperkalemia and increase rate of IVF for SCAR and TLS risk. - Infectious workup and antibiotics per primary team - Consider pulmonology consult for worsening pleural effusion - CT angio chest PE ordered by primary team - IR port placement 09/30 - MRI brain wwo cont no evidence metastasis - Pulm consult: - thora performed 09/29 with 3L removed - pleural fluid studies consistent with malignant exudative effusion - post-procedure cxr pending - Repeat CXR 09/29 - Minimally improved lung aeration the left lung base. Persistent large left pleural effusion with near complete lung collapse. No pneumothorax. Heart size is unchanged. - 09/30 new oxygen requirement to 5L and hypotensive episodes requiring fluids and pressors. Now HDS. 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 Ideally please get patient to 7N. He is consented for chemotherapy and the first cycle can go through PIV. - Order daily CBC with diff, TLS Labs (K, Ca, Phos, Cr, Uric Acid) 09/29 - Allopurinol 300mg on him today for TLS Ppx - chemo to start this evening - fluids at 75 ml/hour to tomorrow morning and reassess - official recs pending - IR port placement today - MRI brain wwo cont no evidence metastasis - Pulm consult: - thora performed 09/29 with 3L removed - pleural fluid studies consistent with malignant exudative effusion - post-procedure cxr pending - Repeat CXR 09/29 - Minimally improved lung aeration the left lung base. Persistent large left pleural effusion with near complete lung collapse. No pneumothorax. Heart size is unchanged. - new oxygen requirement to 5L and hypotensive episodes requiring fluids and pressors. Now HDS. 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 Ideally please get patient to 7N. He is consented for chemotherapy and the first cycle can go through PIV. - Order daily CBC with diff, TLS Labs (K, Ca, Phos, Cr, Uric Acid) 09/29 - Allopurinol 300mg on him today for TLS Ppx - chemo to start this evening - fluids at 75 ml/hour to tomorrow morning and reassess - official recs pending - IR port placement today - MRI brain wwo cont pending - Pulm consult: - thora performed today with 3L removed - pleural fluid studies pending - post-procedure cxr pending PLAN: - start allopurinol - Follow up MRI Brain Wwo Cont - Follow up labs, monitor for TLS - continue pain regimen with bowel regimen HLD (hyperlipidemia) 09/16/2024 Assessment & Plan (10/04/2024 11:07 AM CDT): Previously took Rosuvastatin 20 mg tab PO QHS, but patient reports stopping due to leg cramping Assessment & Plan (10/03/2024 7:14 AM CDT): Previously took Rosuvastatin 20 mg tab PO QHS, but patient reports stopping due to leg cramping Assessment & Plan (10/02/2024 7:11 AM CDT): - Previous took Rosuvastatin 20 mg tab PO QHS, but patient reports stopping due to leg cramping - CTM Assessment & Plan (10/01/2024 6:53 AM CDT): - Previous took Rosuvastatin 20 mg tab PO QHS, but patient reports stopping due to leg cramping - CTM Assessment & Plan (09/30/2024 7:26 AM CDT): - Previous took Rosuvastatin 20 mg tab PO QHS, but patient reports stopping due to leg cramping - CTM Assessment & Plan (09/29/2024 3:28 PM CDT): - Previous took Rosuvastatin 20 mg tab PO QHS, but patient reports stopping due to leg cramping - CTM Assessment & Plan (09/28/2024 10:05 PM CDT): - Previous took Rosuvastatin 20 mg tab PO QHS, but patient reports stopping due to leg cramping PLAN: - Start rosuvstatin Assessment & Plan (09/16/2024 8:45 PM CDT): -unclear why pt is not taking statin prescribed by PCP; okayed per Dr. Modi's note from 08/01/24 to use even iso chronic liver disease Plan: -f/u on d/c or with PCP Pleural effusion on left 09/16/2024 Assessment & Plan (09/16/2024 9:09 PM CDT): -TIM initially discovered on CT at [facility] in 07/2024 -CT this admission showing new L pleural effusion and L lower lung atelectasis vs consolidation, c/f progression of TIM mass compared with [facility] CT chest from July 2024 -s/p EBUS per pulm with biopsies/brushings, FNA -s/p L diagnostic and therapeutic thoracentesis with removal of 1350mL serosanguinous fluid -pleural fluid LDH 1478, protein 3.8 -exudative effusion based on most recent serum labs, also LDH >2/3 ULN of serum LDH -most likely malignant effusion however could be parapneumonic; less likely hepatic hydrothorax given unlikely to be transudative based on pleural fluid -current smoker with 5 cigarettes/day; had tried bupropion in past which decreased his use significantly from 2.5 ppd -pt reports not on any home O2 Plan: -pulmonology on board -titrate O2 with goal sat 90-96% -Obtain O2 sat on RA and with ambulation in the am to decide if home O2 therapy needed -Ok to hold off antibiotics unless pleural fluid or admission labs concerning pneumonia -Follow up pleural fluid analysis and bronch biopsy pathology/brushing/cytology results -PT/OT for O2 walk -smoking cessation counseling Tobacco abuse 09/16/2024 Assessment & Plan (09/16/2024 9:09 PM CDT): -TIM initially discovered on CT at [facility] in 07/2024 -CT this admission showing new L pleural effusion and L lower lung atelectasis vs consolidation, c/f progression of TIM mass compared with [facility] CT chest from July 2024 -s/p EBUS per pulm with biopsies/brushings, FNA -s/p L diagnostic and therapeutic thoracentesis with removal of 1350mL serosanguinous fluid -pleural fluid LDH 1478, protein 3.8 -exudative effusion based on most recent serum labs, also LDH >2/3 ULN of serum LDH -most likely malignant effusion however could be parapneumonic; less likely hepatic hydrothorax given unlikely to be transudative based on pleural fluid -current smoker with 5 cigarettes/day; had tried bupropion in past which decreased his use significantly from 2.5 ppd -pt reports not on any home O2 Plan: -pulmonology on board -titrate O2 with goal sat 90-96% -Obtain O2 sat on RA and with ambulation in the am to decide if home O2 therapy needed -Ok to hold off antibiotics unless pleural fluid or admission labs concerning pneumonia -Follow up pleural fluid analysis and bronch biopsy pathology/brushing/cytology results -PT/OT for O2 walk -smoking cessation counseling Gastroesophageal reflux disease without esophagi tis 09/16/2024 Assessment & Plan (10/04/2024 11:07 AM CDT): - CTM Assessment & Plan (10/03/2024 7:14 AM CDT): - CTM Assessment & Plan (10/02/2024 7:12 AM CDT): - CTM Assessment & Plan (10/01/2024 6:53 AM CDT): - CTM Assessment & Plan (09/30/2024 7:41 PM CDT): - CTM Assessment & Plan (09/16/2024 8:46 PM CDT): MELD 3.0: 9 at 07/27/2024 10:25 AM MELD-Na: 9 at 07/27/2024 10:25 AM Calculated from: Serum Creatinine: 1.16 mg/dL at 07/27/2024 10:25 AM Serum Sodium: 139 mmol/L (Using max of 137 mmol/L) at 07/27/2024 10:25 AM Total Bilirubin: 1 mg/dL at 07/27/2024 10:25 AM Serum Albumin: 3.5 g/dL at 07/27/2024 10:25 AM INR(ratio): 1.1 at 07/27/2024 10:25 AM Age at listing (hypothetical): 73 years Sex: Male at 07/27/2024 10:25 AM Cause: likely MASLD HE: no EV: none on EGD in Sep 2022 HCC: no evidence on abd US 07/27/24 Ascites: none on abd US 07/27/24 SBP: no TXP: no. Pt with occ alc use and current smoking, low MELD -follows Dr. Modi; [facility] 08/01/24 Plan: -continue outpt follow up with office visit and abd US in 01/2025 -continue home famotidine 40mg daily Anemia 07/30/2024 Overview (07/30/2024): Progressive drop in Hgb in 2024 with normal MCV and iron level Assessment & Plan (10/04/2024 11:07 AM CDT): Hgb 10.3, suspect chronic disease, will recommend outpatient follow up. Assessment & Plan (10/03/2024 11:17 AM CDT): Hgb 10.3, suspect chronic disease, will recommend outpatient follow up. Assessment & Plan (10/02/2024 1:10 PM CDT): Hgb 10.3 - CTM Assessment & Plan (10/01/2024 1:44 PM CDT): Hgb 10.4 - CTM Duodenum ulcer 09/23/2022 Overview (09/25/2022): 09/23/22: EGD duodenal bulb ulcer, antral biopsies negative for H pylori. 09/25/22 started famotidine 40 mg bid, drop to 40 mg qd after a month Colon adenomas 12/04/2020 Overview (01/12/2023): 12/04/20 colonoscopy: multiple adenomas removed, repeat in 1-2 years. 09/23/22 colonoscopy: one small adenoma removed, repeat in 5 years Assessment & Plan (09/16/2024 8:45 PM CDT): -multiple tubular adenomas from colonoscopies in 2020, 2022 Plan: -repeat colonoscopy 2027 Hypertension 01/24/2020 Assessment & Plan (10/04/2024 11:07 AM CDT): - Home Rx: Metoprolol succinate XL 25 mg tab PO QD, Lisinopril 20 mg PO QD, held in the setting of hypotension Assessment & Plan (10/03/2024 11:17 AM CDT): - Home Rx: Metoprolol succinate XL 25 mg tab PO QD, Lisinopril 20 mg PO QD, held in the setting of hypotension Assessment & Plan (10/02/2024 7:11 AM CDT): - Home Rx: Metoprolol succinate XL 25 mg tab PO QD, Lisinopril 20 mg PO QD Plan: - held home medications due to hypotension Assessment & Plan (10/01/2024 1:44 PM CDT): - Home Rx: Metoprolol succinate XL 25 mg tab PO QD, Lisinopril 20 mg PO QD Plan: - held home medications due to hypotension Assessment & Plan (09/30/2024 7:41 PM CDT): - Home Rx: Metoprolol succinate XL 25 mg tab PO QD, Lisinopril 20 mg PO QD PLAN: - held home medications due to hypotension Assessment & Plan (09/29/2024 3:27 PM CDT): - Home Rx: Metoprolol succinate XL 25 mg tab PO QD, Lisinopril 20 mg PO QD PLAN: - Continue home medications Assessment & Plan (09/16/2024 8:45 PM CDT): -continue home lisinopril 20mg daily, metoprolol succinate 25mg daily Smoking trying to quit 06/27/2019 Snoring 06/27/2019 Arthritis 06/25/2019 Obesity 06/25/2019 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 07/31/14 CT: fatty liver 12/14/18 CT w/contrast: nodular liver, multiple indeterminate hypodensities 01/11/19 MRI ([facility]): nodular liver, no focal lesions, mild splenomegaly, [...] focal lesions, patent vessels, no ascites mcm Assessment & Plan (10/04/2024 11:07 AM CDT): MELD 10 [No dialysis, Cr 1.02, Bilirubin 1.1, INR 1.3] , CTM Assessment & Plan (10/03/2024 7:14 AM CDT): MELD 10 [No dialysis, Cr 1.02, Bilirubin 1.1, INR 1.3] , CTM Assessment & Plan (10/02/2024 7:11 AM CDT): - MELD 10 [No dialysis, Cr 1.02, Bilirubin 1.1, INR 1.3] - CTM Assessment & Plan (10/01/2024 6:53 AM CDT): - MELD 10 [No dialysis, Cr 1.02, Bilirubin 1.1, INR 1.3] - CTM Assessment & Plan (09/30/2024 7:26 AM CDT): - MELD 10 [No dialysis, Cr 1.02, Bilirubin 1.1, INR 1.3] - CTM Assessment & Plan (09/29/2024 3:27 PM CDT): - MELD 10 [No dialysis, Cr 1.02, Bilirubin 1.1, INR 1.3] - CTM Assessment & Plan (09/16/2024 8:46 PM CDT): MELD 3.0: 9 at 07/27/2024 10:25 AM MELD-Na: 9 at 07/27/2024 10:25 AM Calculated from: Serum Creatinine: 1.16 mg/dL at 07/27/2024 10:25 AM Serum Sodium: 139 mmol/L (Using max of 137 mmol/L) at 07/27/2024 10:25 AM Total Bilirubin: 1 mg/dL at 07/27/2024 10:25 AM Serum Albumin: 3.5 g/dL at 07/27/2024 10:25 AM INR(ratio): 1.1 at 07/27/2024 10:25 AM Age at listing (hypothetical): 73 years Sex: Male at 07/27/2024 10:25 AM Cause: likely MASLD HE: no EV: none on EGD in Sep 2022 HCC: no evidence on abd US 07/27/24 Ascites: none on abd US 07/27/24 SBP: no TXP: no. Pt with occ alc use and current smoking, low MELD -follows Dr. Modi; [facility] 08/01/24 Plan: -continue outpt follow up with office visit and abd US in 01/2025 -continue home famotidine 40mg daily Diffuse large cell lymphoma in remission 018 Overview (06/25/2019): Diagnosed in 2013 and treated with R-CHOP Assessment & Plan (10/04/2024 11:07 AM CDT): - s/p R-CHOP x6 cycles (2013; in remission) Assessment & Plan (10/03/2024 7:14 AM CDT): - s/p R-CHOP x6 cycles (2013; in remission) Assessment & Plan (10/02/2024 7:11 AM CDT): - s/p R-CHOP x6 cycles (2013; in remission) Assessment & Plan (10/01/2024 6:53 AM CDT): - s/p R-CHOP x6 cycles (2013; in remission) Assessment & Plan (09/30/2024 7:41 PM CDT): - s/p R-CHOP x6 cycles (2013; in remission) Assessment & Plan (09/29/2024 3:27 PM CDT): - s/p R-CHOP x6 ycles (2013; in remission) Assessment & Plan (09/16/2024 8:45 PM CDT): -in remission since 2014; completed 10 cycles of chemotherapy R-CHOP Prostate cancer 06/22/2017 Overview (06/27/2019): Diagnosed 2013 Assessment & Plan (10/04/2024 11:07 AM CDT): Localized very-low risk prostate adenocarcinoma, CTM Assessment & Plan (10/03/2024 7:14 AM CDT): Localized very-low risk prostate adenocarcinoma, CTM Assessment & Plan (10/02/2024 7:11 AM CDT): - localized very-low risk prostate adenocarcinoma - CTM Assessment & Plan (10/01/2024 6:53 AM CDT): - localized very-low risk prostate adenocarcinoma - CTM Assessment & Plan (09/30/2024 7:26 AM CDT): - localized very-low risk prostate adenocarcinoma - CTM Assessment & Plan (09/29/2024 3:28 PM CDT): - localized very-low risk prostate adenocarcinoma - CTM Assessment & Plan (09/16/2024 8:45 PM CDT): -very low risk, on active surveillance - follows with urology; last biopsy 12/08/22 showing fragments of hyperplastic prostatic tissue with a cute and chronic inflammation and dystrophic calcifications Plan: -continue outpt f/u with urology Rising PSA level Current Treatment and Therapy Plans SMALL CELL LUNG MET EXTENSIVE STAGE (ATEZOLIZUMAB CARBOPLATIN ETOPOSIDE) Q21 DAYS --> MAINTENANCE (ATEZOLIZUMAB) Q21 DAYS* Plan Start Date:09/28/2024 Plan Provider:Tomasa Correa MD Linked Problems Small cell carcinoma of lung , unspecified laterality, unspecified part of lung (HCC) Treatment Medications Current Day (Day 1 , Cycle 2 - Planned for 10/26/2024) Next Day (Day 2, Cycle 2 - Planned for 10/27/2024) atezolizumab (Tecentriq) infusionCARBOplatin (Paraplatin) Infusion (AUC Dosing)etoposide (Vepesid)etoposide (Vepesid) 1000 mL infusion atezolizumab (Tecentriq) 1,200 mg in NaCl IV 0.9 % 270 mL infusionCARBOplatin (Paraplatin) 750 mg in NaCl IV 0.9 % 325 mL infusionetoposide (Vepesid) 220 mg in NaCl IV 0.9 % 1,011 mL infusion etoposide (Vepesid) 220 mg in NaCl IV 0.9 % 1,011 mL infusion Past Treatment and Therapy Plans No past plan information found. Lifetime Dose Tracking * Chemical Lifetime Dose Automatic Entry Manual Entr y CTDI(vol) 952 mGy 952 mGy 0 mGy
--- OUTSIDE RECORDS SUMMARY | 2024-10-07 23:15 | XMS_ITS | Encounter Summary ---
Author Organization [facility] Address [address] [place], [place] [address] [address] Care Team Providers Care Dials Inspector Name Role Phone Jacques Kim MD Primary Care Provider Tomasa Correa MD Unavailable [phone] Reason for Visit * Reason Onset Date Comments Follow-up 10/07/2024 Encounter Details Date Type Department [facility] Description 10/07/2024 Telephone [facility] - Hematology/Oncology [address] [place] [address] Tomasa Correa MD [address] [facility] [address] [place] [address] Follow-up Social History Tobacco Use Types Packs/Day [...] and heating? Not hard at all 09/29/2024 [facility] - Occupational Stress Questionnaire Answer Date Recorded [...] any time in the past 12 m [facility], were you homeless or living in a nursing home (including now)? No 09/29/2024 Sex and Gender Information Value Date Recorded Sex Assigned at Male 04/02/2022 9:58 AM [employer] OPERATOR Legal Sex Male 5:14 PM [employer] OPERATOR Gender Identity Male 04/02/2022 9:58 AM [employer] OPERATOR Sexual Orientation Straight 04/02/2022 9: 58 AM [employer] OPERATOR documented as of this encounter Functional Status [...] encounter Miscellaneous Notes * Telephone Encounter - Maulik Arroyo RN - 10/07/2024 12:30 PM CDT Called patient and LVM this morning checking on him. Asked him to call me back. Social work hotlined patient this morning for safety concerns. documented in this encounter Plan of Treatment Upcoming Encounters Date Type Department Care Team (Late st Contact Info) Description 10/25/2024 10:40 AM CDT Appointment [facility] [address] [place] [address] 10/25/2024 11:20 AM CDT Office Visit [facility] - Hematology/Oncology [address] [place] [phone] Yaima Rodriguez, DO [address] [place] [address] 10/26/2024 10:30 AM CDT Appointment [facility] [address] [place] [address] 10/27/2024 10:30 AM CDT Appointment [facility] [address] [place] [address] 11/03/2024 8:00 AM CDT Office Visit [facility] - Pulmonology [address] [place] [address], [place] [address] Yifan Potter MD [address] [place] [address] [address] DIV OF PULMONARY/[place] [address] 02/06/2025 12:30 PM [employer] [facility]ointment [facility] [address] [place] [address] Hardeep Cohen MD [address] [place] [address] [address] [place] [address] 02/06/2025 1:30 PM [employer] OPERATOR Office Visit [facility] - GI [address] [place] [address], [place] [address] Hardeep Cohen MD [address] [place] [address] [address] [place] [address] documented as of this encounter Goals Goal [...] on filedocumented in this encounter Care Teams Dials Inspector Relationship Specialty Start Date End Date Jacques Kim MD [address] [place] [address] PCP - General 08/17/19 Tomasa Correa MD [address] [address] Hematology and Oncology 09/27/24 documented as of this encounter
--- OUTSIDE RECORDS SUMMARY | 2024-10-07 23:16 | XMS_ITS | Clinical Summary ---
Author Organization [facility] [employer] Address [address] [place] [address] Care Team Providers Care Press Department Manager Name Role Phone Jacques Kim MD Primary Care Provider Tomasa Correa MD Unavailable [phone] Source Comments [facility],non-owned Affiliates and Associated Physician Practices is amultiple site organization consisting of ambulatory clinics and hospital sitesin [place], [place], [place] and [place]. This disclosure is being madepursuant to the Care Everywhere program and may not contain all information available regarding this patient. Last updated 17.[facility] Allergies Active Allergy Reactions Criticality Noted Date Comments Sulfa Drugs Skin Reactions Medium 03/27/2014 Medications * Be aware that medications may not be up to date on this document. Alwaysverify current medications with the patient. 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 Cycle length is 21 days. Reasons: Nausea and Vomiting caused by Cancer Chemotherapy 4 tablet 1 025 Active OLANZapine (ZyPREXA) 5 MG tabletIndicati ons:Small cell carcinoma of lung, unspecified laterality, unspecified part of lung (HCC) Take 1 tablet by mouth at bedtime on days 1-4. Cycle length is 21 days. Reasons: Nausea and Vomiting caused by Cancer Chemotherapy 8 tablet 1 025 Active prochlorperazi ne (Compazine) 10 MG tabletIndicati ons:Small cell carcinoma of lung, unspecified laterality, unspecified part of lung (HCC) Take 1 (one) tablet by mouth every 6 hours as needed for Nausea/Vomiting 30 tablet 3 025 Active ondansetron (Zofran) 8 MG tabletIndicati ons:Small cell carcinoma of lung, unspecified laterality, unspecified part of lung (HCC) Take 1 (one) tablet by mouth every 8 hours as needed for Nausea/Vomiting 20 tablet 3 025 Active acetaminophen (TYLENOL) 325 MG tablet Take 2 (two) tablets by mouth every 4 hours as needed for Fever or Pain Maximum allowable Acetaminophen amount = 4 Grams (4000 mg) / 24 hours. 2024 Discontinued(L ist Clean-Up) sildenafil (VIAGRA) 100 MG tablet Take 0.5 (one-half) tablet by mouth once daily as needed (take 1 tablet daily as needed 1 hour prior to intercourse on empty stomach) 1 hour prior to intercourse 10 tablet 021 2024 Discontinued(T x Complete) rosuvastatin (Crestor) 20 MG tablet Take 1 (one) tablet by mouth at bedtime 022 2024 Discontinued(T x Complete) Potassium 99 MG tablet Take 1 (one) tablet by mouth once daily 2024 Discontinued(C linical Decision) senna (Senokot) 8.6 MG tablet Take 2 (two) tablets by mouth at bedtime 180 tablet 2 025 2024 Discontinued polyethylene glycol 3350 (Miralax) 17 GM/SCOOP powder Take 17 (seventeen) g by mouth once daily as needed for Constipation 025 2024 Discontinued prochlorperazi ne (Compazine) 10 MG tabletIndicati ons:Small cell carcinoma of lung, unspecified laterality, unspecified part of lung (HCC) Take 1 (one) tablet by mouth every 6 hours as needed for Nausea/Vomiting 30 tablet 6 025 2024 Discontinued(P atient Discharge) ondansetron (Zofran) 8 MG tabletIndicati ons:Small cell carcinoma of lung, unspecified laterality, unspecified part of lung (HCC) Take 1 (one) tablet by mouth every 8 hours as needed for Nausea/Vomiting 20 tablet 6 025 2024 Discontinued(P atient Discharge) ondansetron (Zofran) 8 MG tabletIndicati ons:Small cell carcinoma of lung, unspecified laterality, unspecified part of lung (HCC) Take 1 (one) tablet by mouth every 8 hours as needed for Nausea/Vomiting 20 tablet 3 025 2024 Discontinued prochlorperazi ne (Compazine) 10 MG tabletIndicati ons:Small cell carcinoma of lung, unspecified laterality, unspecified part of lung (HCC) Take 1 (one) tablet by mouth every 6 hours as needed for Nausea/Vomiting 30 tablet 3 025 2024 Discontinued Active Problems Problem Noted Date Diagnosed Date [...] CDT): -TIM initially discovered on CT at [facility] in 07/2024 -CT this admission showing new L pleural effusion and L lower lung atelectasis vs consolidation, c/f progression of TIM mass compared with [facility] CT chest from July 2024 -s/p EBUS [...] CDT): -TIM initially discovered on CT at [facility] in 07/2024 -CT this admission showing new L pleural effusion and L lower lung atelectasis vs consolidation, c/f progression of TIM mass compared with [facility] CT chest from July 2024 -s/p EBUS [...] nodular liver, multiple indeterminate hypodensities 01/11/19 MRI ([facility]): nodular liver, no focal lesions, mild splenomegaly, [...] outpt f/u with urology Rising PSA level Encounters Date Type Department Care Team Description 10/07/2024 Telephone [facility] [address] [place] [address] Kellen Oden RN General 10/07/2024 Telephone [facility] - Hematology/Oncology [address] [place] [phone] Tomasa Correa MD Follow-up 10/07/2024 Telephone [facility] - Social Work [address] [phone] Kaylee Salter, SUPERVISOR FIREWORKS ASSEMBLY Follow-up 10/05/2024 Orders Only [facility] - Hematology/Oncology [address] [place] [address] Tomasa Correa MD Small cell carcinoma of lung, unspecified laterality, unspecified part of lung (HCC) ; Cancer associated pain; Cancer cachexia (HCC); Anemia, unspecified type; At high risk for malnutrition; Debility; 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) 10/05/2024 Telephone [facility] Health at Home Scheduling [address] [place] [address] Florecita Chau, RN Coordination Of Care 10/05/2024 Telephone [facility] at Home Scheduling [address] [place] [address] Roxy Gonzales, RN Coordination Of Care 10/04/2024 3:35 PM CDT - 10/04/2024 11:59 PM CDT Hospital Encounter [facility] [address] [place] [address] Bob Wong MD Discharge Disposition: Home or Self Care 10/04/2024 Telephone [facility] - Social Work [address] [phone] Kaylee Salter, SUPERVISOR FIREWORKS ASSEMBLY Follow-up 10/04/2024 Telephone [facility] - Social Work [address] [phone] Kaylee Salter, SUPERVISOR FIREWORKS ASSEMBLY Follow-up 10/03/2024 Orders Only [facility] [address] [place] [phone] Candy Haro, WEDDING DECORATOR-CHAIN MAKER 09/30/2024 Orders Only [facility] [address] [place] [phone] Elsa Santos, Elis 09/28/2024 12:39 PM CDT - 10/04/2024 3:34 PM CDT Hospital Encounter [facility] ACUTE [address] [place] [address] Home Garvey MD Mayer, Joshua C, DO Freedle, Ryan L, MD Ishiyama, Takaaki, MD Emergency Medicine Discharge Disposition: Home or Self Care 09/28/2024 Travel 09/28/2024 Telephone [facility] - Hematology/Oncology [address] [place] [phone] Tomasa Correa MD Question 09/27/2024 11:43 AM CDT - 09/27/2024 11:59 PM CDT Hospital Encounter [facility] [address] [place] [address], [address] [place] [address] Discharge Disposition: Home or Self Care 09/27/2024 9:20 AM CDT Office Visit [facility] - Hematology/Oncology [address] [place] [phone] Yifan Potter MD Weidenbaum, Chloe, Small cell carcinoma of lung, unspecified laterality, unspecified part of lung (HCC) (Primary Dx); 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); Cancer associated pain; Cancer cachexia (HCC); Anemia, unspecified type; At high risk for malnutrition; Debility 09/27/2024 Telephone [facility] [address] [place] [address] Vinita Neely, correction officer reformatory 09/27/2024 Travel 09/27/2024 Telephone [facility] [address] [place] [address] Kellie Whitfield DO General (Direct admit call) 09/27/2024 Orders Only [facility] - Hematology/Oncology [address] [place] [phone] Tomasa Correa MD 09/26/2024 Travel 09/24/2024 Orders Only [facility] - Pulmonology [address] [place] [phone] Yifan Potter MD 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) 09/23/2024 Telephone [facility] - Pulmonology [address] [place] [phone] Yifan Potter MD Question 09/16/2024 3:15 PM CDT - 09/16/2024 4:15 PM CDT Surgery [facility] [address] [place] [phone] Yifan Potter MD THORACENTESIS/ASPIRA TION PLEURAL SPACE 09/16/2024 10:00 AM CDT - 09/16/2024 12:00 PM CDT Surgery [facility] [address] [place] [phone] Yifan Potter MD Bronchoscopy with linear endobronchial ultrasound 09/16/2024 9:57 AM CDT Anesthesia Event [facility] [address] [place] [phone] Mendez Rose DO Osterloh, Joan Frances, WEDDING DECORATOR-MECHANICAL ASSEMBLER 09/16/2024 7:40 AM CDT - 09/17/2024 6:50 PM CDT Hospital Encounter [facility] [address] [place] [phone] Yifan Potter MD Felgenhauer, Joshua, MD Befeler, Alex S, MD Surgery General Discharge Disposition: Home or Self Care 09/16/2024 Travel 09/15/2024 Travel 09/14/2024 Orders Only [facility] - Pulmonology [address] [place] [phone] Yifan Potter MD Mass of left lung 09/14/2024 Telephone [facility] - Centralized Scheduling [address] [place] [address] Yifan Potter MD 08/01/2024 1:30 PM CDT Office Visit [facility] - GI [address] [place] [address] [place] [address] Hardeep Nugent MD 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 Not hard at all 09/29/2024 [facility] Occup[facility] ional [facility] - Occupational Stress [...] any time in the past 12 m [facility], were you homeless or living in a retirement (including now)? No 09/29/2024 Sex and Gender Information Value Date Recorded Sex Assigned at Male 04/02/2022 9:58 AM [employer] Legal Sex Male 5:14 PM [employer] Gender Identity Male 04/02/2022 9:58 AM [employer] Sexual Orientation Straight 04/02/2022 9: 58 AM [employer]CCUPATIONAL THERAPIST [employer] Last Filed Vital Signs Vital Sign Reading Time Taken Comments Blood Pressure 159/77 10/04/2024 1:00 PM CDT Pulse 118 10/04/2024 1:00 PM CDT Temperature 37.1 C (98.8 F) 10/04/2024 1:00 PM CDT Respiratory Rate 18 10/04/2024 1:00 PM CDT Oxygen Saturation 91% 10/04/2024 1:00 PM CDT Inhaled Oxygen Concentration 21% 09/30/2024 2 :40 PM CDT Weight 97.5 kg (215 lb) 10/03/2024 4:00 AM CDT Height 175.3 cm (5' 9) 09/28/2024 11:52 AM CDT Body Mass Index 31.75 09/28/2024 11:52 AM CDT Plan of Treatment Upcoming Encounters Date Type Department Care Team (Late st Contact Info) Description 10/25/2024 10:40 AM CDT Appointment [facility] [address] [place] [phone] 10/25/2024 11:20 AM CDT Office Visit [facility] - Hematology/Oncology [address] [place] [phone] Yaima Rodriguez DO [address] [place] [address] 10/26/2024 10:30 AM CDT Appointment [address] [address] 10/27/2024 10:30 AM CDT Appointment [facility] [address] [place] [phone] 11/03/2024 8:00 AM CDT Office Visit [facility] - Pulmonology [address] [place] [address], [place] [address] Yifan Potter MD [address] [place] [address] 2L DIV OF PULMONARY/[place] [address] 02/06/2025 12:30 PM [employer] Appointment [address] [phone] Hardeep Cohen MD [address] [place] [address] 2L [place] [address] 02/06/2025 1:30 PM [employer]UPATIONAL [employer]ER[employer] Office Visit [facility] - GI [address] [facility], [place] [address] Hardeep Cohen MD [address] [place] [address] [place] [address] Health Maintenance Due Date Last Done Comments COLOGUARD (AGES 45-75) - COLON CA SCREENING 1950 CT COLONOGRAPHY - COLON CA SCREENING 1950 FIT - COLON CA SCREENING 1950 FLEX SIG - COLON CA SCREENING 1950 DTAP/TDAP/TD VACCINES (1 - Tdap) 09/11/1970 PNEUMOCOCCAL VACCINE 50+ (1 of 2 - PCV) 09/11/1970 ZOSTER VACCINE (1 of 2) 09/11/1970 LUNG CANCER SCREENING 09/11/2001 HEPATITIS B VACCINE (1 of 3 - Risk 3-dose series) 2011 Respiratory Syncytial Virus (RSV) Vaccine Pt: or over 60 yrs (1 - Risk 60-74 years 1-dose series) 2011 AAA SCREENING 09/11/2016 COVID-19 VACCINE (3 - Moderna risk series) 07/10/2020 06/12/2020, 05/15/2020 DEPRESSION SCREENING 02/17/2024 MEDICARE AWV CALENDAR YEAR 2024 INFLUENZA VACCINE (#1) 2024 11/23/2023, 2017 LIPID TESTING 06/14/2026 06/14/2021, 04/11/2020 SCREENING FOR DIABETES 10/05/2027 , 10/03/2024, 10/03/2024, Additional history exists COLON MONITORING 09/23/2032 09/23/2022, 09/2022, 12/04/2020, Additional history exists COLONOSCOPY - COLON CA SCREENING 09/23/2032 09/23/2022, 09/23/2022, 12/04/2020, Additional history exists Colorectal Cancer Screening 09/23/2032 HEPATITIS C SCREENING Completed 09/27/2024 HIB VACCINE Aged Out No longer eligi [...] General On track( 025 2:19 PM CDT) No Sarah Beth Hairston, RN Note: Expected end date: ongoing Interventions: Take all medications as prescribed Let your doctor know right away about any changes in your medications Make sure to request a refill of your medication at least one week prior to your last dose Medical Devices Implanted Type Area Motorcycle Tester Device Identifier Shelf Expiration Date Model / Serial / Lot Port Implinfn Powerport Clrvu Argd Hope Implanted:Qty: 1 on 09/30/2024 by Jose Ashley MD at [facility] Right: Chest [employer] Per[employer] 08/15/2025 [id number] / / [id number] Procedures Procedure Name Priority Date/Time Associated Diagnosis Comments BASIC METABOLIC PANEL (CALCIUM TOTAL) Timed 10/04/2024 5:39 AM CDT SCLC (small cell lung carcinoma), left (HCC) PHOSPHORUS BLOOD Routine 10/04/2024 5:39 AM CDT SCLC (small cell lung carcinoma), left (HCC) LDH BLOOD Routine 10/04/2024 5:39 AM CDT URIC ACID BLOOD Routine 10/04/2024 5:39 AM CDT SCLC (small cell lung carcinoma), left (HCC) CBC W/O DIFFERENTIAL Timed 10/04/2024 5:39 AM CDT SCLC (small cell lung carcinoma), left (HCC) BASIC METABOLIC PANEL (CALCIUM TOTAL) Timed 10/03/2024 5:19 PM CDT SCLC (small cell lung carcinoma), left (HCC) PHOSPHORUS BLOOD Routine 10/03/2024 5:19 PM CDT SCLC (small cell lung carcinoma), left (HCC) LDH BLOOD Routine 10/03/2024 5:19 PM CDT URIC ACID BLOOD Routine 10/03/2024 5:19 PM CDT SCLC (small cell lung carcinoma), left (HCC) ECHO COMPLETE W CONTRAST Routine 10/03/2024 3:04 PM CDT Hypotension due to hypovolemia BASIC METABOLIC PANEL (CALCIUM TOTAL) Timed 10/03/2024 2:13 AM CDT SCLC (small cell lung carcinoma), left (HCC) PHOSPHORUS BLOOD Routine 10/03/2024 2:13 AM CDT SCLC (small cell lung carcinoma), left (HCC) LDH BLOOD Routine 10/03/2024 2:13 AM CDT URIC ACID BLOOD Routine 10/03/2024 2:13 AM CDT SCLC (small cell lung carcinoma), left (HCC) CBC W/O DIFFERENTIAL Timed 10/03/2024 2:13 AM CDT SCLC (small cell lung carcinoma), left (HCC) BASIC METABOLIC PANEL (CALCIUM TOTAL) Timed 10/02/2024 5:07 PM CDT SCLC (small cell lung carcinoma), left (HCC) PHOSPHORUS BLOOD Routine 10/02/2024 5:07 PM CDT SCLC (small cell lung carcinoma), left (HCC) LDH BLOOD Routine 10/02/2024 5:07 PM CDT URIC ACID BLOOD Routine 10/02/2024 5:07 PM CDT SCLC (small cell lung carcinoma), left (HCC) BASIC METABOLIC PANEL (CALCIUM TOTAL) Timed 10/02/2024 12:09 AM CDT SCLC (small cell lung carcinoma), left (HCC) PHOSPHORUS BLOOD Routine 10/02/2024 12:0 9 AM CDT SCLC (small cell lung carcinoma), left (HCC) LDH BLOOD Routine 10/02/2024 12:09 AM CDT URIC ACID BLOOD Routine 10/02/2024 12:09 AM CDT SCLC (small cell lung carcinoma), left (HCC) CBC W/O DIFFERENTIAL Timed 10/02/2024 12:09 AM CDT SCLC (small cell lung carcinoma), left (HCC) CT ANGIO CHEST PULM EMBOLISM Routine 10/01/2024 10:29 PM CDT Pleural effusion on left BASIC METABOLIC PANEL (CALCIUM TOTAL) Timed 10/01/2024 4:00 PM CDT SCLC (small cell lung carcinoma), left (HCC) PHOSPHORUS BLOOD Routine 10/01/2024 4:00 PM CDT SCLC (small cell lung carcinoma), left (HCC) LDH BLOOD Routine 10/01/2024 4:00 PM CDT URIC ACID BLOOD Routine 10/01/2024 4:00 PM CDT SCLC (small cell lung carcinoma), left (HCC) BASIC METABOLIC PANEL (CALCIUM TOTAL) Timed 10/01/2024 5:06 AM CDT SCLC (small cell lung carcinoma), left (HCC) PHOSPHORUS BLOOD Routine 10/01/2024 5:06 AM CDT SCLC (small cell lung carcinoma), left (HCC) LDH BLOOD Routine 10/01/2024 5:06 AM CDT URIC ACID BLOOD Routine 10/01/2024 5:06 AM CDT SCLC (small cell lung carcinoma), left (HCC) CBC W/O DIFFERENTIAL Timed 10/01/2024 5:06 AM CDT SCLC (small cell lung carcinoma), left (HCC) CULTURE URINE Routine 09/30/2024 5:58 PM CDT XR CHEST 1VW PORTABLE Routine 09/30/2024 5:16 PM CDT Acute respiratory failure with hypoxia (HCC) BASIC METABOLIC PANEL (CALCIUM TOTAL) Timed 09/30/2024 5:10 PM CDT SCLC (small cell lung carcinoma), left (HCC) PHOSPHORUS BLOOD Routine 09/30/2024 5:10 PM CDT SCLC (small cell lung carcinoma), left (HCC) LDH BLOOD Routine 09/30/2024 5:10 PM CDT URIC ACID BLOOD Routine 09/30/2024 5:10 PM CDT SCLC (small cell lung carcinoma), left (HCC) CULTURE BLOOD STAT 09/30/2024 5:10 PM CDT IR PATEL CATH INSERT Routine 09/30/2024 2:01 PM CDT Small cell carcinoma of lung, unspecified laterality, unspecified part of lung (HCC) XR CHEST 1VW PORTABLE STAT 09/30/2024 11:07 AM CDT Acute respiratory failure with hypoxia (HCC) CBC W/O DIFFERENTIAL Timed 09/30/2024 5:51 AM CDT SCLC (small cell lung carcinoma), left (HCC) LDH BLOOD Routine 09/30/2024 5:50 AM CDT URIC ACID BLOOD Timed 09/30/2024 5:50 AM CDT SCLC (small cell lung carcinoma), left (HCC) PHOSPHORUS BLOOD Timed 09/30/2024 5:50 AM CDT SCLC (small cell lung carcinoma), left (HCC) BASIC METABOLIC PANEL (CALCIUM TOTAL) Timed 09/30/2024 5:50 AM CDT SCLC (small cell lung carcinoma), left (HCC) MRI BRAIN WWO CONTRAST STAT 09/29/2024 6:11 PM CDT SCLC (small cell lung carcinoma), left (HCC) XR CHEST 1VW PORTABLE STAT 09/29/2024 4:32 PM CDT Malignant pleural effusion (HCC) Small cell carcinoma of lung, unspecified laterality, unspecified part of lung (HCC) PATHOLOGY SMEAR BODY FLUID Routine 09/29/2024 2:39 PM CDT DIFFERENTIAL MANUAL FLUID Routine 09/29/2024 2:39 PM CDT CELL COUNT W DIFFERENTIAL FLUID Routine 09/29/2024 2:39 PM CDT LDH BODY FLUID Routine 09/29/2024 2:39 PM CDT PH BODY FLUID ([facility] ONLY) Routine 09/29/2024 2:39 PM CDT PROTEIN BODY FLUID Routine 09/29/2024 2: 39 PM CDT GLUCOSE BODY FLUID Routine 09/29/2024 2: 39 PM CDT CULTURE FLUID+GRAM STAIN Routine 09/29/2024 2:39 PM CDT CARDIAC EKG ORDER 09/29/2024 1:2 5 PM CDT URIC ACID BLOOD AM Draw 09/29/2024 6:25 AM CDT SCLC (small cell lung carcinoma), left (HCC) PHOSPHORUS BLOOD AM Draw 09/29/2024 6:25 AM CDT SCLC (small cell lung carcinoma), left (HCC) CBC W/O DIFFERENTIAL AM Draw 09/29/2024 6:25 AM CDT SCLC (small cell lung carcinoma), left (HCC) BASIC METABOLIC PANEL (CALCIUM TOTAL) Routine 09/29/2024 6:25 AM CDT SCLC (small cell lung carcinoma), left (HCC) CT CHEST PE W ABD PELVIS W CONT STAT 09/28/2024 5:55 PM CDT Chest pain, unspecified type TROPONIN-I HIGH SENSITIVE REFLEX 1HOUR Timed 09/28/2024 4:47 PM CDT XR CHEST 2VW STAT 09/28/2024 1:56 PM CDT Chest pain, unspecified type BLOOD GASES DUYEN + COOX PANEL STAT 09/28/2024 12:39 PM CDT B-TYPE NATRIURETIC PEPTIDE STAT 09/28/2024 12:39 PM CDT MAGNESIUM BLOOD STAT 09/28/2024 12:39 PM CDT COMPREHENSIVE METABOLIC PANEL STAT 09/28/2024 12:39 PM CDT CBC W AUTO DIFFERENTIAL STAT 09/28/2024 12:39 PM CDT TROPONIN-I HIGH SENSITIVE BASELINE + 1HR STAT 09/28/2024 12:39 PM CDT EKG 12-LEAD STAT 09/28/2024 12:16 PM CDT Chest pain, unspecified type MAGNESIUM BLOOD Routine 09/27/2024 11:51 AM CDT 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) HEPATITIS B SURFACE ANTIBODY QUANT Routine 09/27/2024 11:51 AM CDT 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) HEPATITIS B CORE ANTIBODY TOTAL STAT 09/27/2024 11:51 AM CDT 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) HEPATITIS C ANTIBODY Routine 09/27/2024 11:51 AM CDT 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) COMPREHENSIVE METABOLIC PANEL STAT 09/27/2024 11:51 AM CDT 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) CBC W AUTO DIFFERENTIAL STAT 09/27/2024 11:51 AM CDT 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) HEPATITIS B SURFACE ANTIGEN W RFLX CONFIRMATION Routine 09/27/2024 11:51 AM CDT 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) HIV-1 HIV-2 ANTIBODY + HIV P24 AG PANEL Routine 09/27/2024 11:51 AM CDT 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) RENAL FUNCTION PANEL Timed 09/17/2024 3:32 PM CDT Pleural effusion COMPREHENSIVE METABOLIC PANEL AM Draw 09/17/2024 3:32 PM CDT Pleural effusion Acute hypoxemic respiratory failure (HCC) Pleural effusion on left Mass of upper lobe of left lung Liver cirrhosis secondary to MASH MAGNESIUM BLOOD AM Draw 09/17/2024 3:32 PM CDT Pleural effusion Acute hypoxemic respiratory failure (HCC) Pleural effusion on left Mass of upper lobe of left lung Liver cirrhosis secondary to MASH CBC W/O DIFFERENTIAL AM Draw 09/17/2024 3:32 PM CDT Pleural effusion Acute hypoxemic respiratory failure (HCC) Pleural effusion on left Mass of upper lobe of left lung Liver cirrhosis secondary to MASH PT-INR STAT 09/16/2024 9:55 PM CDT Lung mass Pleural effusion COMPREHENSIVE METABOLIC PANEL STAT 09/16/2024 9:55 PM CDT Lung mass Pleural effusion 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) CBC W AUTO DIFFERENTIAL STAT 09/16/2024 9:55 PM CDT Lung mass Pleural effusion PT EVAL AND TREAT Routine 09/16/2024 8:0 2 PM CDT OT EVAL AND TREAT Routine 09/16/2024 8:0 2 PM CDT XR CHEST 1VW PORTABLE STAT 09/16/2024 6:59 PM CDT Pleural effusion GLUCOSE - POINT OF CARE Routine 09/16/2024 6:56 PM CDT CYTOLOGY NON-FINANCIAL SALES ASSISTANT PANEL (ST[facility]) Routine 09/16/2024 4:39 PM CDT Pleural effusion PH BODY FLUID ([facility] ONLY) Routine 09/16/2024 4:36 PM CDT Pleural effusion ALBUMIN BODY FLUID Routine 09/16/2024 4: 34 PM CDT Pleural effusion TRIGLYCERIDES BODY FLUID Routine 09/16/2024 4:34 PM CDT Pleural effusion PROTEIN BODY FLUID Routine 09/16/2024 4: 34 PM CDT Pleural effusion AMYLASE BODY FLUID Routine 09/16/2024 4: 34 PM CDT Pleural effusion LDH BODY FLUID Routine 09/16/2024 4:34 PM CDT Pleural effusion CHOLESTEROL BODY FLUID Routine 09/16/2024 4:34 PM CDT Pleural effusion GLUCOSE BODY FLUID Routine 09/16/2024 4: 34 PM CDT Pleural effusion PATHOLOGY SMEAR BODY FLUID Routine 09/16/2024 4:31 PM CDT Pleural effusion DIFFERENTIAL MANUAL FLUID Routine 09/16/2024 4:31 PM CDT Pleural effusion CELL COUNT W DIFFERENTIAL FLUID Routine 09/16/2024 4:31 PM CDT Pleural effusion CULTURE FLUID+GRAM STAIN Routine 09/16/2024 4:27 PM CDT Pleural effusion CULTURE FUNGUS OTHER+FUNGUS SMEAR Routine 09/16/2024 4:25 PM CDT Pleural effusion CULTURE AFB+SMEAR Routine 09/16/2024 4:2 5 PM CDT Pleural effusion KS ASPIRATE PLEURA W IMAGING 09/16/2024 3:43 PM CDT Pleural effusion CT CHEST WO CONTRAST STAT 09/16/2024 2:29 PM CDT Lung mass XR CHEST 1VW PORTABLE STAT 09/16/2024 1:30 PM CDT Lung mass FLOW CYTOMETRY BODY FLUID Routine 09/16/2024 12:22 PM CDT Lung mass CYTOLOGY NON-FINANCIAL SALES ASSISTANT PANEL (STL) Routine 09/16/2024 12:07 PM CDT Lung mass FINE NEEDLE ASPIRATION (STL) Routine 09/16/2024 12:07 PM CDT Lung mass PATHOLOGY TISSUE Routine 09/16/2024 11:5 7 AM CDT Lung mass ENDOTRACHEAL TUBE NOTE Routine 09/16/2024 10:46 AM CDT KS BRONCH EBUS SAMPLNG 3 OR MORE NODE 09/16/2024 9:42 AM CDT Lung mass Special Needs SUPINE BRONCHOSCOPY Routine 09/16/2024 8:52 AM CDT PROSTATE SPECIFIC ANTIGEN SCREEN Routine 07/27/2024 10:32 AM CDT Malignant neoplasm of prostate (HCC) HEMOGLOBIN A1C Routine 07/27/2024 10:32 AM CDT Liver cirrhosis secondary to [facility] Prostate cancer (CMS/HCC) Malignant neoplasm of prostate (HCC) ALPHA FETOPROTEIN BLOOD TUMOR MARKER Routine 07/27/2024 10:25 AM CDT Liver cirrhosis secondary to [facility] Abnormal finding on imaging of liver PT-INR [facility] Routine 07/27/2024 10:25 AM CDT Liver cirrhosis [...] COLON, SCREENING Routine 09/23/2022 8:21 AM CDT LIPID PROFILE (EXTERAL RESULT ENTRY) Routine 04/11/2020 from Last 3 Months or Most Recently Relevant to Health Maintenance Results * (ABNORMAL) URIC ACID BLOOD (10/04/2024 5:39 AM CDT) Only the most recent of10 resultswithin the time period is included. Uric Acid 2.4(L) 3.5 - 7.2 mg/dL 10/04/2024 6:19 AM CDT [facility] Blood BLOOD SPECIMEN / Unknown Venipuncture / Unknown 10/04/2024 5:39 AM CDT 10/04/2024 5:45 AM CDT us Paras Foreman MD LAB - CHEMISTRY ORDERABLES Fin al Result [facility] [address] [address], [facility] [phone] * (ABNORMAL) CBC W/O DIFFERENTIAL (10/04/2024 5:39 AM CDT) Only the most recent of7 resultswithin the time period is included. Pathologist [facility] [place] WBC 3.0(L) 4.0 - 10.7 x10E9/L 10/04/2024 5:57 AM [facility] RBC Count 2.99(L) 4.30 - 5.80 x10E12/L 10/04/2024 5:57 AM [facility] Hemoglobin 9.8(L) 13.3 - 17.5 g/dL 10/04/2024 5:57 AM [facility] Hematocrit 28.9(L) 38.7 - 51.1 % 10/04/2024 5:57 AM [facility] MCV 96.7 80.0 - 98.0 fL 10/04/2024 5:57 AM [facility] MCH 32.8 26.7 - 33.6 pg 10/04/2024 5:57 AM [facility] MCHC 33.9 31.7 - 36.3 g/dL 10/04/2024 5:57 AM [facility] RDW-CV 12.6 11.3 - 14.8 % 10/04/2024 5:57 AM [facility] Platelet Count 142(L) 150 - 420 x10E9/L 10/04/2024 5:57 AM [facility] MPV 9.7 7.8 - 11.4 fL 10/04/2024 5:57 AM [facility] Blood BLOOD SPECIMEN / Unknown Venipuncture / Unknown 10/04/2024 5:39 AM CDT 10/04/2024 5:44 AM CDT us Josh Lazcano DO LAB - HEMATOLOGY ORDERABLES Fi nal Result [address] [address], [facility] [phone] * (ABNORMAL) BASIC METABOLIC PANEL (CALCIUM TOTAL) (10/04/2024 5:39 AM CDT) Only the most recent of10 resultswithin the time period is included. [facility] BUN 22 7 - 26 mg/dL 10/04/2024 6:15 AM [facility] Creatinine 0.69(L) 0.71 - 1.16 mg/dL 10/04/2024 6:15 AM [facility] Sodium 135(L) 136 - 145 mmol/L 10/04/2024 6:15 AM [facility] Potassium 3.9 3.5 - 4.5 mmol/L 10/04/2024 6:15 AM [facility] Chloride 107 98 - 107 mmol/L 10/04/2024 6:15 AM [facility] CO2 27 22 - 29 mmol/L 10/04/2024 6:15 AM [facility] Glucose 104(H) 70 - 99 mg/dL 10/04/2024 6:15 AM [facility] Calcium 8.0(L) 8.4 - 10.2 mg/dL 10/04/2024 6:15 AM [facility] Anion Gap 1(L) 6 - 16 10/04/2024 6:15 AM [facility] BUN/Creatinine Ratio 32(H) 7 - 23 10/04/2024 6:15 AM [facility] Osmolality Calculated 284 275 - 295 mOsm/kg 10/04/2024 6:15 AM [facility] eGFR by CKD-EPI >90 >=90 mL/min/1.7 3 m2 10/04/2024 6:15 AM [facility] Comment:Estimated Glomerular Filtration Rate (eGFR) calculated using the CKD-EPI Creatinine Equation (2020), per the National Kidney Foundation and [place] Society of Nephrology recommendations. Blood BLOOD SPECIMEN / Unknown Venipuncture / Unknown 10/04/2024 5:39 AM CDT 10/04/2024 5:45 AM CDT us Paras Foreman MD LAB - CHEMISTRY ORDERABLES Fin al Result [facility] [address] [place] [address], [place] [phone] * (ABNORMAL) PHOSPHORUS BLOOD (10/04/2024 5:39 AM CDT) Only the most recent of10 resultswithin the time period is included. Pathologist [facility] [place] Phosphorus 2.1(L) 2.8 - 5.1 mg/dL 10/04/2024 6:15 AM CDT [facility] Blood BLOOD SPECIMEN / Unknown Venipuncture / Unknown 10/04/2024 5:39 AM CDT 10/04/2024 5:45 AM CDT us Paras Foreman MD LAB - CHEMISTRY ORDERABLES Fin al Result [facility] [address] [place] [address], [place] [phone] * (ABNORMAL) LDH BLOOD (10/04/2024 5:39 AM CDT) Only the most recent of9 resultswithin the time period is included. [facility] LDH Total 350(H) 125 - 243 Units/L 10/04/2024 6:15 AM CDT [facility] Blood BLOOD SPECIMEN / Unknown Venipuncture / Unknown 10/04/2024 5:39 AM CDT 10/04/2024 5:45 AM CDT us Paras Foreman MD LAB - CHEMISTRY ORDERABLES Fin al Result [address] [address], [place] [phone] * ECHO COMPLETE W CONTRAST (10/03/2024 3:04 PM CDT) [facility] AV area index 1.762 cm /m SSM CV FUJI PACS Dimensionless Index 1.239 unitless SSM CV FUJI PACS Myocardial strain charge 2 unitless SSM CV FUJI PACS LV EDV A4C 58 ml SSM CV FU JI PACS LV ESV A4C 16.9 ml SSM CV FU JI PACS IVSd 2D 0.813 cm SSM CV FUJ I PACS LVIDd 4.16 cm SSM CV FUJ I PACS LVIDs 2.95 cm SSM CV FUJ I PACS LVOT diam 2 cm SSM CV FUJ I PACS LVOT VTI 22.3 cm SSM CV FUJ I PACS LVOT pk [place] 121 cm/s SSM CV F UJI PACS LVOT pk grad 6 mmHg SSM CV FUJI PACS LVPWd 0.865 cm SSM CV FUJ I PACS LV A4C EF 70.862 % SSM CV FUJ I PACS AV mn grad 4 mmHg SSM CV FU JI PACS AV VTI 18 cm SSM CV FUJ I PACS AV pk [place] 136 cm/s SSM CV FUJ I PACS AV pk grad 7 mmHg SSM CV FU JI PACS AV area cont VTI 3.892 cm SSM CV FUJI PACS AV area pk [place] 2.795 cm SSM CV FUJI PACS IVC Diam Expiration 3.16 cm SSM CV FUJI PACS LA size 3.6 cm SSM CV FUJ I PACS MV mn grad 2 mmHg SSM CV FU JI PACS MV VTI 16.8 cm SSM CV FUJ I PACS PV pk [place] 152 cm/s SSM CV FUJ I PACS TR pk [place] 180 cm/s SSM CV FUJ I PACS Anatomical Region Laterality Modality Ultrasound 10/03/2024 2:06 PM CDT Narrative 10/03/2024 6:36 PM CDT Summary * Technically difficult study. * The left ventricle is normal in size with normal systolic function and an estimated ejection fraction of 60-65% by visual estimate. Left ventricular wall motion is grossly normal, however endocardial definition is limited. * Right ventricle is not well visualized, but appears grossly normal in size with unable to be assessed systolic function. * There is left sided pleural effusion. * The pulmonary artery systolic pressure is normal, 28 mmHg. Patient Info Name: Marcus Wilkes Age: 74 years : 1950 Gender: Male Ht: 69 in Wt: 215 lb BSA: 2.21 m2 HR: 110 bpm BP: 154 / 88 mmHg Heart Rhythm: Tachycardia Exam Date: 10/03/2024 2:06 PM Patient Status: I/P Study Site: [facility] Primary Location: [facility] EStudy Info Technical Quality: Technically Difficult Exam Type: ECHO COMPLETE W CONTRAST Indications E86.1 - Hypotension due to hypovolemia Procedure(s) * A complete 2D, color Doppler, spectral Doppler and M-Mode transthoracic echocardiogram was performed with an Ultrasound Enhancing Agent (UEA). Contrast/Agitated Saline Contrast / Saline: Definity Amount: --- ml Reaction to Contrast: no Reason for Technically Difficult Study: poor echocardiographic windows Staff Referring Physician: Paras Foreman Ordering Provider: Paras Foreman Attending Physician: Paras Foreman Fellow: Nilo Avila Assistant Professor Of Biochemistry: Rayne Bailon Left Ventricle The left ventricle is normal in size. Left ventricular systolic function is normal with an estimated ejection fraction of 60-65% by visual estimate. There is normal left ventricular wall thickness. The left ventricular mass is normal. Left ventricular segmental wall motion is grossly normal, however endocardial definition is limited. The left ventricular diastolic function is indeterminate. Diastolic function is indeterminate due to inadequate Doppler assessment and/or poor acoustic windows. Right Ventricle The right ventricle is not well visualized, but appears grossly normal in size. Right ventricular systolic function is unable to be assessed. Ventricular Septum Interventricular septum not well visualized. Left Atrium The left atrium is not well visualized. Right Atrium The right atrium is not well visualized. Atrial Septum Interatrial septum not well visualized. Aortic Valve The aortic valve is not well visualized. Pulmonic Valve The pulmonic valve is not well visualized. There is no pulmonic valve stenosis. There is no pulmonic regurgitation. Mitral Valve The mitral valve is not well visualized. There is no mitral valve stenosis. There is mild mitral valve regurgitation. Tricuspid Valve The tricuspid valve is not well visualized. There is no tricuspid valve stenosis. There is mild tricuspid valve regurgitation. The pulmonary artery systolic pressure is normal, 28 mmHg. Inferior Vena Cava The inferior vena cava is dilated (> 2.1 cm). There is < 50% collapse of the IVC upon inspiration with an estimated right atrial pressure of 15 mmHg. Other Findings There is left sided pleural effusion. Pericardium/Pleural There is no pericardial effusion. Aorta The aortic root at the sinus of Valsalva is not well visualized. The ascending aorta is not well visualized. Measurements Left Ventricular Outflow Tract Name Value Normal LVOT 2D LVOT Diameter 2.0 cm LVOT Area 3.1 cm2 LVOT Doppler LVOT Peak Velocity 1.2 m/s LVOT Peak Gradient 6 mmHg LVOT Mean Velocity 87.80 cm/s LVOT Mean Gradient 4 mmHg LVOT VTI 22.3 cm LVOT VTI/AV VTI Ratio 1.2 LVOT Stroke Volume 70 ml LVOT Stroke Volume Index 32 ml/m2 35-58 Pulmonic Valve Name Value Normal PV Doppler PV Peak Velocity 1.5 m/s PV Peak Gradient 9 mmHg PV Accel Time 74.00 ms Mitral Valve Name Value Normal MV Doppler MV Peak Gradient 3 mmHg MV Mean Gradient 2 mmHg MV DI (VTI) 0.75 MV Area (Cont Eq VTI) 4.17 cm2 Tricuspid Valve Name Value Normal TV Regurgitation Doppler TR Peak Velocity 1.8 m/s TR Peak Gradient 13 mmHg Estimated PAP/RSVP RA Pressure 15 mmHg <=5 PA Systolic Pressure 28 mmHg <35 RV Systolic Pressure 28 mmHg <36 Venous Name Value Normal IVC/SVC IVC Diameter 3.2 cm <=2.1 Aortic Valve Name Value Normal AV Doppler AV Peak Velocity 1.36 m/s AV Peak Gradient 7 mmHg AV Mean Gradient 4 mmHg AV VTI 18 cm AV Area (Cont Eq VTI) 3.89 cm2 >=2.00 AV Area (Cont Eq [place]) 2.80 cm2 AV DI (VTI) 1.24 AV DI ([place]) 0.89 AV Regurgitation 2D LVOT Area 3.14 cm2 Ventricles Name Value Normal LV Dimensions 2D/MM IVS Diastolic Thickness (2D) 0.8 cm 0.6-1.0 LVID Diastole (2D) 4.2 cm 4.2-5.8 LVPW Diastolic Thickness (2D) 0.9 cm 0.6-1.0 IVS Systolic Thickness (2D) 1.5 cm LVID Systole (2D) 3.0 cm 2.5-4.0 LVPW Systolic Thickness (2D) 1.5 cm LV Mass (2D Cubed) 106 g 88-224 LV Mass Index (2D Cubed) 48 g/m2 49-115 Relative Wall Thickness (2D) 0.42 <=0.42 LV Fractional Shortening/Ejection Fraction 2D/MM LV Fractional Shortening (2D) 29 % 25-43 LV EF (2D Teicholz) 56 % 52-72 LV Diastolic Volume (4C MOD) 58 ml LV EF (4C MOD) 71 % LV Diastolic Length (4C) 7.5 cm LV Systolic Length (4C) 6.4 cm LV Stroke Volume (4C MOD) 41 ml Atria Name Value Normal LA Dimensions LA Dimension (2D) 3.6 cm 3.0-4.1 LA Dimen Index (2D) 1.6 cm/m2 Report Signatures Finalized by Lamont Melo DR on 10/03/2024 06:36 PM Reviewed by Fellow Nilo Avila on 10/03/2024 04:39 PM Procedure Note Lamont Melo MD - 10/03/2024 Summary * Technically difficult study. * The left ventricle is normal in size with normal systolic function andan estimated ejection fraction of 60-65% by visual estimate. Leftventricular wall motion is grossly normal, however endocardial definition islimited. * Right ventricle is not well visualized, but appears grossly normal insize with unable to be assessed systolic function. * There is left sided pleural effusion. * The pulmonary artery systolic pressure is normal, 28 mmHg. Patient Info Name: Marcus Wilkes Age: 74 years : 1950 Gender: Male Ht: 69 in Wt: 215 lb BSA: 2.21 m2 HR: 110 bpm BP: 154 / 88 mmHg Heart Rhythm: Tachycardia Exam Date: 10/03/2024 2:06 PM Patient Status: I/P Study Site: [facility] Primary Location: [facility] EStud Info Technical Quality: Technically Difficult Exam Type: ECHO COMPLETE W CONTRAST Indications E86.1 - Hypotension due to hypovolemia Procedure(s) * A complete 2D, color Doppler, spectral Doppler and M-Modetransthoracic echocardiogram was performed with an Ultrasound Enhancing Agent (UEA). Contrast/Agitated Saline Contrast / Saline: Definity Amount: --- ml Reaction to Contrast: no Reason for Technically Difficult Study: poor echocardiographicwindows Staff Referring Physician: Paras Foreman Ordering Provider: Paras Foreman Attending Physician: Paras Foreman Fellow: Nilo Avila Assistant Professor Of Biochemistry: Rayne Bailon Left Ventricle The left ventricle is normal in size. Left ventricular systolic functionis normal with an estimated ejection fraction of 60-65% by visual estimate.There is normal left ventricular wall thickness. The left ventricular mass is normal. Left ventricular segmental wall motion is grossly normal,however endocardial definition is limited. The left ventricular diastolic functionis indeterminate. Diastolic function is indeterminate due to inadequateDoppler assessment and/or poor acoustic windows. Right Ventricle The right ventricle is not well visualized, but appears grossly normalin size. Right ventricular systolic function is unable to be assessed. Ventricular Septum Interventricular septum not well visualized. Left Atrium The left atrium is not well visualized. Right Atrium The right atrium is not well visualized. Atrial Septum Interatrial septum not well visualized. Aortic Valve The aortic valve is not well visualized. Pulmonic Valve The pulmonic valve is not well visualized. There is no pulmonic valve stenosis. There is no pulmonic regurgitation. Mitral Valve The mitral valve is not well visualized. There is no mitral valvestenosis. There is mild mitral valve regurgitation. Tricuspid Valve The tricuspid valve is not well visualized. There is no tricuspidvalve stenosis. There is mild tricuspid valve regurgitation. The pulmonaryartery systolic pressure is normal, 28 mmHg. Inferior Vena Cava The inferior vena cava is dilated (> 2.1 cm). There is < 50% collapse ofthe IVC upon inspiration with an estimated right atrial pressure of 15 mmHg. Other Findings There is left sided pleural effusion. Pericardium/Pleural There is no pericardial effusion. Aorta The aortic root at the sinus of Valsalva is not well visualized. The ascending aorta is not well visualized. Measurements Left Ventricular Outflow Tract Name Value Normal LVOT 2D LVOT Diameter 2.0 cm LVOT Area 3.1 cm2 LVOT Doppler LVOT Peak Velocity 1.2 m/s LVOT Peak Gradient 6 mmHg LVOT Mean Velocity 87.80 cm/s LVOT Mean Gradient 4 mmHg LVOT VTI 22.3 cm LVOT VTI/AV VTI Ratio 1.2 LVOT Stroke Volume 70 ml LVOT Stroke Volume Index 32 ml/m2 35-58 Pulmonic Valve Name Value Normal PV Doppler PV Peak Velocity 1.5 m/s PV Peak Gradient 9 mmHg PV Accel Time 74.00 ms Mitral Valve Name Value Normal MV Doppler MV Peak Gradient 3 mmHg MV Mean Gradient 2 mmHg MV DI (VTI) 0.75 MV Area (Cont Eq VTI) 4.17 cm2 Tricuspid Valve Name Value Normal TV Regurgitation Doppler TR Peak Velocity 1.8 m/s TR Peak Gradient 13 mmHg Estimated PAP/RSVP RA Pressure 15 mmHg <=5 PA Systolic Pressure 28 mmHg <35 RV Systolic Pressure 28 mmHg <36 Venous Name Value Normal IVC/SVC IVC Diameter 3.2 cm <=2.1 Aortic Valve Name Value Normal AV Doppler AV Peak Velocity 1.36 m/s AV Peak Gradient 7 mmHg AV Mean Gradient 4 mmHg AV VTI 18 cm AV Area (Cont Eq VTI) 3.89 cm2 >=2.00 AV Area (Cont Eq [place]) 2.80 cm2 AV DI (VTI) 1.24 AV DI ([place]) 0.89 AV Regurgitation 2D LVOT Area 3.14 cm2 Ventricles Name Value Normal LV Dimensions 2D/MM IVS Diastolic Thickness (2D) 0.8 cm 0.6-1.0 LVID Diastole (2D) 4.2 cm 4.2-5.8 LVPW Diastolic Thickness (2D) 0.9 cm 0.6-1.0 IVS Systolic Thickness (2D) 1.5 cm LVID Systole (2D) 3.0 cm 2.5-4.0 LVPW Systolic Thickness (2D) 1.5 cm LV Mass (2D Cubed) 106 g 88-224 LV Mass Index (2D Cubed) 48 g/m2 49-115 Relative Wall Thickness (2D) 0.42 <=0.42 LV Fractional Shortening/Ejection Fraction 2D/MM LV Fractional Shortening (2D) 29 % 25-43 LV EF (2D Teicholz) 56 % 52-72 LV Diastolic Volume (4C MOD) 58 ml LV EF (4C MOD) 71 % LV Diastolic Length (4C) 7.5 cm LV Systolic Length (4C) 6.4 cm LV Stroke Volume (4C MOD) 41 ml Atria Name Value Normal LA Dimensions LA Dimension (2D) 3.6 cm 3.0-4.1 LA Dimen Index (2D) 1.6 cm/m2 Report Signatures Finalized by Lamont Melo DR on 10/03/2024 06:36 PM Reviewed by Fellow Nilo Avila on 10/03/2024 04:39 PM us Paras Foreman MD ECHO CUPID Final Result * CT Angio Chest Pulm Embolism (10/01/2024 10:29 PM CDT) Anatomical Region Laterality Modality Chest Computed Tomogra phy 10/02/2024 12:1 1 AM CDT Impressions 10/02/2024 2:08 AM CDT Impression: 1.No evidence of acute pulmonary embolism. 2.Redemonstrated large left pleural effusion, likely malignant, with complete collapse of the left lung and mass effect in the mediastinum causing a [id number] mediastinal shift. Redemonstrated large enhancing mass within the left upper lobe measuring up to 12 cm in maximum dimension consistent with biopsy-proven small cell carcinoma. Redemonstrated significant nodular pleural thickening. Left mainstem bronchus is occluded due to the mass. The mass extends into the left hilum and mediastinum. 3.Redemonstrated metastatic mediastinal and supraclavicular lymphadenopathy. 4.Redemonstrated hypodense hepatic lesions and periportal lymphadenopathy concerning for metastatic disease. > Dictated by Keely Corcoran MD > Dictated by Licensed Nursing Assistant I, Luís Kelley MD have personally reviewed and interpreted this examination/study. > Interpreting Provider: Luís Kelley MD on 10/02/2024 2:08 AM Narrative 10/02/2024 2:08 AM CDT PROCEDURE: CT ANGIO CHEST PULM EMBOLISM, DATE/TIME OF EXAM: 10/01/2024 10:30 PM, LOCATION [facility] INDICATION: J90: Pleural effusion on left ADDITIONAL CLINICAL INFORMATION: Ordering Provider Reason For Exam: pulm embolism? Technologist Note: Additional: COMPARISON: None. TECHNIQUE: CT of the chest was performed following the uneventful administration of 75 mL of Isovue 370 intravenous contrast according to a pulmonary embolism protocol. Multiplanar reconstructions were created. Findings: Study Quality This examination for the diagnosis of pulmonary embolism is adequate. Pulmonary Arteries: No evidence of acute pulmonary embolism. Thoracic Vasculature: Calcific atherosclerosis of the thoracic aorta and its branches. Lower Neck and Axillae: Right internal jugular vein approach central venous line terminates within the right atrium. Lungs: Redemonstrated large left pleural effusion, likely malignant, with complete collapse of the left lung and mass effect in the mediastinum causing a jugx-gk-zwgmn mediastinal shift. Left mainstem bronchus is occluded due to the mass. Redemonstrated large enhancing mass within the left upper lobe measuring up to 12 cm in maximum dimension consistent with biopsy-proven small cell carcinoma. Redemonstrated significant nodular pleural thickening. The mass extends into the left hilum and mediastinum. Heart and Pericardium: The cardiac chambers are normal in size. No pericardial fluid or thickening is present. Coronary atherosclerosis Mediastinum and Jessica: Redemonstrated enlarged mediastinal lymph node conglomerate abutting the pulmonary artery and the aorta. Unchanged 1.6 cm enlarged left subclavicular lymph node (Series 8, Image 1). Bones and Chest Wall: Bone windows demonstrate no suspicious lytic or blastic lesions. The visible osseous structures are intact. Degenerative changes are seen in the spine. Diffuse idiopathic skeletal hyperostosis. Upper Abdomen: Multiple splenic granulomas. Gallbladder surgically absent. Trace perihepatic simple fluid. Redemonstrated numerous hypodense hepatic lesions. Redemonstrated periportal lymphadenopathy. Calcific atherosclerosis of the aorta and its branches. Procedure Note Luís Kelley MD - 10/02/2024 PROCEDURE: CT ANGIO CHEST PULM EMBOLISM, DATE/TIME OF EXAM: 10/01/2024 10:30 PM, LOCATION [facility] INDICATION: J90: Pleural effusion on left ADDITIONAL CLINICAL INFORMATION: Ordering Provider Reason For Exam: pulm embolism? Technologist Note: Additional: COMPARISON: None. TECHNIQUE: CT of the chest was performed following the uneventful administration of 75 mL of Isovue 370 intravenous contrast according toa pulmonary embolism protocol. Multiplanar reconstructions were created. Findings: Study Quality This examination for the diagnosis of pulmonary embolism is adequate. Pulmonary Arteries: No evidence of acute pulmonary embolism. Thoracic Vasculature: Calcific atherosclerosis of the thoracic aorta and its branches. Lower Neck and Axillae: Right internal jugular vein approach central venous line terminateswithin the right atrium. Lungs: Redemonstrated large left pleural effusion, likely malignant, withcomplete collapse of the left lung and mass effect in the mediastinum causing a [id number] mediastinal shift. Left mainstem bronchus is occluded dueto the mass. Redemonstrated large enhancing mass within the left upper lobe measuringup to 12 cm in maximum dimension consistent with biopsy-proven small cell carcinoma. Redemonstrated significant nodular pleural thickening. Themass extends into the left hilum and mediastinum. Heart and Pericardium: The cardiac chambers are normal in size. No pericardial fluid orthickening is present. Coronary atherosclerosis Mediastinum and Jessica: Redemonstrated enlarged mediastinal lymph node conglomerate abutting the pulmonary artery and the aorta. Unchanged 1.6 cm enlarged left subclavicular lymph node (Series 8, Image 1). Bones and Chest Wall: Bone windows demonstrate no suspicious lytic or blastic lesions. The visible osseous structures are intact. Degenerative changes are seen inthe spine. Diffuse idiopathic skeletal hyperostosis. Upper Abdomen: Multiple splenic granulomas. Gallbladder surgically absent. Trace perihepatic simple fluid. Redemonstrated numerous hypodense hepatic lesions. Redemonstrated periportal lymphadenopathy. Calcific atherosclerosis of the aorta and its branches. Impression: 1.No evidence of acute pulmonary embolism. 2.Redemonstrated large left pleural effusion, likely malignant, with complete collapse of the left lung and mass effect in the mediastinum causing a gbhn-jp-feipx mediastinal shift. Redemonstrated largeenhancing mass within the left upper lobe measuring up to 12 cm in maximumdimension consistent with biopsy-proven small cell carcinoma. Redemonstrated significant nodular pleural thickening. Left mainstem bronchus isoccluded due to the mass. The mass extends into the left hilum and mediastinum. 3.Redemonstrated metastatic mediastinal and supraclavicular lymphadenopathy. 4.Redemonstrated hypodense hepatic lesions and periportallymphadenopathy concerning for metastatic disease. > Dictated by Keely Corcoran MD > Dictated by Licensed Nursing Assistant I, Luís Kelley MD have personally reviewed and interpreted this examination/study. > Interpreting Provider: Luís Kelley MD on 10/02/2024 2:08 AM Paras Foreman MD CT ORDERABLES Final Result * CULTURE URINE (09/30/2024 5:58 PM CDT) Culture Urine <10,000 CFU/mL urogenital concetta BELINDA 10/02/2024 4:17 AM CDT [facility] Urine URINE SPECIMEN OBTAINED BY CLEAN CATCH PROCEDURE / Unknown Collection / Unknown 09/30/2024 5:58 PM CDT 09/30/2024 6:10 PM CDT Paras Foreman MD LAB - MICROBIOLOGY ORDERABLES Final Result [facility] [address] [place] [address], [facility] [phone] * XR Chest 1Vw Portable (09/30/2024 5:16 PM CDT) Only the most recent of5 resultswithin the time period is included. Anatomical Region Laterality Modality Chest Digital Radiogra phy 10/01/2024 9:11 AM CDT Narrative 10/01/2024 10:05 AM CDT PROCEDURE: XR CHEST 1VW PORTABLE, DATE/TIME OF EXAM: 09/30/2024 7:55 PM, LOCATION [facility] INDICATION: J96.01: Acute respiratory failure with hypoxia (HCC) ADDITIONAL CLINICAL INFORMATION: Ordering Provider Reason For Exam: infection? Technologist Note: Additional: COMPARISON: Chest x-ray 09/30/2024 at 11:03 AM, CT chest 09/28/2024 TECHNIQUE: Frontal radiograph of the chest. FINDINGS/IMPRESSION: Support devices: *Interval placement of right internal jugular approach central venous catheter with tip superimposing the region of the superior cavoatrial junction. Increased complete opacification of the left lung consistent with combination of malignancy and large left pleural effusion with associated total lung collapse. Rightward mediastinal shift. No pneumothorax is visible. The cardiomediastinal silhouette is partially obscured. Report dictated by Sam Banks MD, (Licensed Nursing Assistant). > Dictated by Licensed Nursing Assistant I, Sadi Solano MD have personally reviewed and interpreted this examination/study. > Interpreting Provider: Sadi Solano MD on 10/01/2024 10:05 AM Procedure Note Sadi Solano MD - 10/01/2024 PROCEDURE: XR CHEST 1VW PORTABLE, DATE/TIME OF EXAM: 09/30/2024 7:55PM, LOCATION [facility] INDICATION: J96.01: Acute respiratory failure with hypoxia (HCC) ADDITIONAL CLINICAL INFORMATION: Ordering Provider Reason For Exam: infection? Technologist Note: Additional: COMPARISON: Chest x-ray 09/30/2024 at 11:03 AM, CT chest 09/28/2024 TECHNIQUE: Frontal radiograph of the chest. FINDINGS/IMPRESSION: Support devices: *Interval placement of right internal jugular approach central venous catheter with tip superimposing the region of the superior cavoatrial junction. Increased complete opacification of the left lung consistent with combination of malignancy and large left pleural effusion withassociated total lung collapse. Rightward mediastinal shift. No pneumothorax is visible. The cardiomediastinal silhouette is partially obscured. Report dictated by Sam Banks MD, (Licensed Nursing Assistant). > Dictated by Licensed Nursing Assistant I, Sadi Solano MD have personally reviewed and interpreted this examination/study. > Interpreting Provider: Sadi Solano MD on 10/01/2024 10:05 AM Paras Foreman MD DIAGNOSTIC IMAGING ORDERABLES Final Result * CULTURE BLOOD (09/30/2024 5:10 PM CDT) Culture No growth day 5 BELINDA 10/05/2024 7:01 PM CDT [facility] Blood PERIPHERAL BLOOD / Unknown Lab Venipuncture / Unknown 09/30/2024 5:10 PM CDT 09/30/2024 5:38 PM CDT Paras Foreman MD LAB - MICROBIOLOGY ORDERABLES Final Result [facility] [address] [place] [address], [facility] [phone] * IR Patel Cath Insert (09/30/2024 2:01 PM CDT) Anatomical Region Laterality Modality Chest X-Ray Angiograph y 09/30/2024 2:02 PM CDT Narrative 09/30/2024 2:05 PM CDT PROCEDURE: IR PATEL CATH INSERT DATE/TIME OF EXAM: 09/30/2024 2:02 PM CLINICAL INFORMATION: None relevant/not provided if blank. Indication: C34.90: Small cell carcinoma of lung, unspecified laterality, unspecified part of lung (HCC) [employer] Paralegal: Dillon Perez M.D. Attending: Shaina Ashley M.D. Procedures performed: 1. Insertion of tunneled central venous catheter with single lumen subcutaneous port 2. Fluoroscopic guidance for central venous catheter procedure. 3. Ultrasound guidance for vascular access with permanent recording. 4. Moderate sedation This patient was referred for placement of a port-a-cath for medications. Following informed consent the patient was taken to the angiography suite and places on the fluoroscopy table. The skin of the right neck and chest was prepared with chlorhexidine and sterile drapes were applied. Under real time ultrasound guidance, the right internal jugular vein was accessed with a micropuncture needle, a pedersen scale image was recorded and a microfilament wire was advanced to the central veins under fluoroscopic guidance. This allowed the placement of a 5 Divehi trocar which in turn allowed the placement of a 0.035 guidewire which was manipulated into the IVC. A site for the port was chosen on the chest wall and anesthetized with lidocaine. A 1 inch incision was made and a subcutaneous pocket was created by blunt dissection. Using a metal tunneling device, the catheter was brought through a subcutaneous tunnel to the venotomy incision and prepared for insertion. A peel-away sheath was inserted over the guidewire and the inner stylet was removed. The catheter was inserted through the sheath which was then removed. The catheter was adjusted for length under fluoroscopy such that the tip was at the junction of the SVC and RA. The port was attached and flushed easily and where locked with heparin and inserted into the subcutaneous pocket. The subcutaneous tissue was approximated with interrupted 3-0 Vicryl and the incision was closed with a running 4-0 Vicryl subcuticular suture. The wound and the venotomy incision were sealed with Dermabond. Moderate sedation on this adult patient was ordered by me, administered intravenously in my presence, and monitored by the procedure nurse as an independent trained observer who was present throughout the procedure. The following parameters were monitored: oxygen saturation, heart rate, blood pressure, and response to care. Intra-service sedation start time was 1305 and end time was 1338 during which I was present. Total physician intra-service sedation time was 33 minutes. For details on pre-moderate sedation and post-moderate sedation patient evaluation, please review the evaluation forms in [facility]. For details on monitored clinical parameters during the intra-service sedation time, please review the procedure nurse documentation in [facility]. I was present for the entire procedure. > Interpreting Provider: Zandra Ashley MD on 09/30/2024 2:05 PM Procedure Note oJse Ashley MD - 09/30/2024 PROCEDURE: IR PATEL CATH INSERT DATE/TIME OF EXAM: 09/30/2024 2:02 PM CLINICAL INFORMATION: None relevant/not provided if blank. Indication: C34.90: Small cell carcinoma of lung, unspecifiedlaterality, unspecified part of lung (HCC) [employer] Paralegal: Dillon Perez M.D. Attending: Shaina Ashley M.D. Procedures performed: 1. Insertion of tunneled central venous catheter with single lumen subcutaneous port 2. Fluoroscopic guidance for central venous catheter procedure. 3. Ultrasound guidance for vascular access with permanent recording. 4. Moderate sedation This patient was referred for placement of a port-a-cath formedications. Following informed consent the patient was taken to the angiographysuite and places on the fluoroscopy table. The skin of the right neck andchest was prepared with chlorhexidine and sterile drapes were applied. Underreal time ultrasound guidance, the right internal jugular vein was accessedwith a micropuncture needle, a pedersen scale image was recorded and amicrofilament wire was advanced to the central veins under fluoroscopic guidance. This allowed the placement of a 5 Divehi trocar which in turn allowed the placement of a 0.035 guidewire which was manipulated into the IVC. Asite for the port was chosen on the chest wall and anesthetized withlidocaine. A 1 inch incision was made and a subcutaneous pocket was created byblunt dissection. Using a metal tunneling device, the catheter was brought through a subcutaneous tunnel to the venotomy incision and prepared for insertion.A peel-away sheath was inserted over the guidewire and the inner styletwas removed. The catheter was inserted through the sheath which was then removed. The catheter was adjusted for length under fluoroscopy suchthat the tip was at the junction of the SVC and RA. The port was attached and flushed easily and where locked with heparin and inserted into the subcutaneous pocket. The subcutaneous tissue was approximated with interrupted 3-0 Vicryl and the incision was closed with a running 4-0 Vicryl subcuticular suture. The wound and the venotomy incision weresealed with Dermabond. Moderate sedation on this adult patient was ordered by me, administered intravenously in my presence, and monitored by the procedure nurse as an independent trained observer who was present throughout the procedure.The following parameters were monitored: oxygen saturation, heart rate,blood pressure, and response to care. Intra-service sedation start time [id number] and end time was 1338 during which I was present. Total physician intra-service sedation time was 33 minutes. For details on pre-moderate sedation and post-moderate sedation patient evaluation, please reviewthe evaluation forms in [facility]. For details on monitored clinical parameters during the intra-service sedation time, please review the procedurenurse documentation in [facility]. I was present for the entire procedure. > Interpreting Provider: Zandra Ashley MD on 09/30/2024 2:05 PM Josh Lazcano DO IR ORDERABLES Final Result * MRI Brain Wwo Contrast (09/29/2024 6:11 PM CDT) Anatomical Region Laterality Modality Head Magnetic Resonan ce 09/29/2024 8:16 PM CDT Impressions 09/30/2024 7:40 AM CDT IMPRESSION: 1.No enhancing lesions identified to suggest intracranial metastasis. 2.No acute intracranial process. Specifically, no acute infarct or acute intracranial hemorrhage. 3.Subtle heterogenous bone marrow signal is a nonspecific finding. No focal lesions are identified. 4.PET CT could be obtained for further evaluation, if clinically warranted. The report is dictated by Luis Angel Jensen MD (vice president [employer]) > Dictated by Licensed Nursing Assistant I, Norris Henry MD have personally reviewed and interpreted this examination/study. > Interpreting Provider: Norris Henry MD on 09/30/2024 7:40 AM Narrative 09/30/2024 7:40 AM CDT PROCEDURE: MRI BRAIN WWO CONTRAST, DATE/TIME OF EXAM: 09/29/2024 6:14 PM, LOCATION [facility] INDICATION: C34.92: SCLC (small cell lung carcinoma), left (HCC) ADDITIONAL CLINICAL INFORMATION: Ordering Provider Reason For Exam: Staging of cancer Technologist Note: None Additional: None. EXAMINATION: Magnetic resonance imaging (MRI) of the brain without and with contrast CONTRAST: GADOBUTROL 1 MMOL/ML IV SSM SO:10 mL TECHNIQUE: MRI of the brain was performed prior to and following the uneventful administration of 10 mL Gadavist intravenous gadolinium contrast according to standard protocol. COMPARISON: No prior study is available for comparison at the time of this dictation. FINDINGS: No evidence of acute or chronic hemorrhage is identified. No evidence of acute cerebral infarction is seen. There is mild cerebral volume loss with associated ex vacuo ventricular dilatation. No mass effect or midline shift is seen. Periventricular and subcortical white matter FLAIR hyperintensities likely represent sequelae of chronic small vessel ischemic disease. 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 No enhancing lesions are identified. The corpus callosum and sella appear normal. The posterior fossa, brainstem, and craniocervical junction appear normal. The visualized portions of the orbits, paranasal sinuses, and mastoids appear normal aside from mild left mastoid effusion. Normal flow voids are demonstrated in the carotid arteries and basilar artery. Subtle heterogenous bone marrow signal of the clivus and the visualized upper cervical spine is a nonspecific finding. The calvarium and visualized cervical spine appear otherwise grossly unremarkable. Procedure Note Norris Henry MD - 09/30/2024 PROCEDURE: MRI BRAIN WWO CONTRAST, DATE/TIME OF EXAM: 09/29/2024 6:14PM, LOCATION [facility] INDICATION: C34.92: SCLC (small cell lung carcinoma), left (HCC) ADDITIONAL CLINICAL INFORMATION: Ordering Provider Reason For Exam: Staging of cancer Technologist Note: None Additional: None. EXAMINATION: Magnetic resonance imaging (MRI) of the brain without andwith contrast CONTRAST: GADOBUTROL 1 MMOL/ML IV SSM SO:10 mL TECHNIQUE: MRI of the brain was performed prior to and following the uneventful administration of 10 mL Gadavist intravenous gadoliniumcontrast according to standard protocol. COMPARISON: No prior study is available for comparison at the time ofthis dictation. FINDINGS: No evidence of acute or chronic hemorrhage is identified. No evidence of acute cerebral infarction is seen. There is mild cerebral volume losswith associated ex vacuo ventricular dilatation. No mass effect or midlineshift is seen. Periventricular and subcortical white matter FLAIR hyperintensities likely represent sequelae of chronic small vesselischemic disease. Old lacunar infarct in the right caudate head and rightthalamus. No enhancing lesions are identified. The corpus callosum and sellaappear normal. The posterior fossa, brainstem, and craniocervical junctionappear normal. The visualized portions of the orbits, paranasal sinuses, and mastoids appear normal aside from mild left mastoid effusion. Normal flow voidsare demonstrated in the carotid arteries and basilar artery. Subtle heterogenous bone marrow signal of the clivus and the visualized upper cervical spine is a nonspecific finding. The calvarium and visualized cervical spine appear otherwise grossly unremarkable. IMPRESSION: 1.No enhancing lesions identified to suggest intracranial metastasis. 2.No acute intracranial process. Specifically, no acute infarct or acute intracranial hemorrhage. 3.Subtle heterogenous bone marrow signal is a nonspecific finding. Nofocal lesions are identified. 4.PET CT could be obtained for further evaluation, if clinicallywarranted. The report is dictated by Luis Angel Jensen MD (vice president [employer]) > Dictated by Licensed Nursing Assistant I, Norris Henry MD have personally reviewed and interpretedthis examination/study. > Interpreting Provider: Norris Henry MD on 09/30/2024 7:40 AM Josh Lazcano DO MR ORDERABLES Final Result * PROTEIN BODY FLUID (09/29/2024 2:39 PM CDT) Only the most recent of2 resultswithin the time period is included. Protein Fluid 3.7 Not Established For Fluids g/dL 09/29/2024 3:34 PM CDT [facility] Fluid Type Pleural Fluid 09/29/2024 3:34 PM CDT [facility] Fluid PLEURAL FLUID / Unknown Collection / Unknown 09/29/2024 2:39 PM CDT 09/29/2024 2:47 PM CDT Narrative [facility] - 09/29/2024 3:34 PM CDT The analytical performance of this test has been independently validated by the laboratory. A reference range has not been established for this fluid. Comparison of this result with the concentration in blood, serum or plasma is recommended. Josh Lazcano DO LAB - BODY FLUID ORDERABLES Fi nal Result [address] [address], [facility] [phone] * PH BODY FLUID ([facility] ONLY) (09/29/2024 2:39 PM CDT) Only the most recent of2 resultswithin the time period is included. pH Fluid 7.43 Not Established for Fluids pH 09/29/2024 2:49 PM CDT [facility] Body Fluid Type Pleural Fluid 09/29/2024 2:49 PM CDT [facility] Fluid PLEURAL FLUID / Unknown Collection / Unknown 09/29/2024 2:39 PM CDT 09/29/2024 2:46 PM CDT Josh Rose Lazcano DO LAB - BODY FLUID ORDERABLES Fi nal Result Performing Organization Address [facility]/ZIP Co de Phone Number [address] [address], [place] [phone] * LDH BODY FLUID (09/29/2024 2:39 PM CDT) Only the most recent of2 resultswithin the time period is included. LD Fluid 1,559 Not Established For Fluids Units/L 09/29/2024 3:34 PM CDT [facility] Fluid Type Pleural Fluid 09/29/2024 3:34 PM CDT [facility] Fluid PLEURAL FLUID / Unknown Collection / Unknown 09/29/2024 2:39 PM CDT 09/29/2024 2:47 PM CDT Narrative [facility] - 09/29/2024 3:34 PM CDT The analytical performance of this test has been independently validated by the laboratory. A reference range has not been established for this fluid. Comparison of this result with the concentration in blood, serum or plasma is recommended. Josh Lazcano DO LAB - BODY FLUID ORDERABLES Fi nal Result Performing Organization Address [facility] Co de Phone Number [address] [address], [place] [phone] * GLUCOSE BODY FLUID (09/29/2024 2:39 PM CDT) Only the most recent of2 resultswithin the time period is included. Glucose Fluid 92 Not Established For Fluids mg/dL 09/29/2024 3:34 PM CDT [facility] Fluid Type Pleural Fluid 09/29/2024 3:34 PM CDT [facility] Fluid PLEURAL FLUID / Unknown Collection / Unknown 09/29/2024 2:39 PM CDT 09/29/2024 2:47 PM CDT Narrative [facility] - 09/29/2024 3:34 PM CDT The analytical performance of this test has been independently validated by the laboratory. A reference range has not been established for this fluid. Comparison of this result with the concentration in blood, serum or plasma is recommended. Josh Lazcano DO LAB - BODY FLUID ORDERABLES Fi nal Result Performing Organization Address [facility]/ZIP Co de Phone Number [address] [address], [place] [phone] * PATHOLOGY SMEAR BODY FLUID (09/29/2024 2:39 PM CDT) Only the most recent of2 resultswithin the time period is included. Path Review Fluid Confirmed 09/30/2024 11:19 AM CDT [facility] Fluid PLEURAL FLUID / Unknown Collection / Unknown 09/29/2024 2:39 PM CDT 09/29/2024 2:48 PM CDT Narrative [facility] - 09/30/2024 11:19 AM CDT Pleural fluid cytospin: - Malignant cells (13%) -No microorganisms identified Geovanna Merlos MD Attending Physician Department of Pathology Transfusion Medicine Josh Lazcano DO LAB - PATHOLOGY/CYTOLOGY ORDER BUCK Final Result Performing Organization Address [facility] Co de Phone Number [address] [address], [place] [phone] * DIFFERENTIAL MANUAL FLUID (09/29/2024 2:39 PM CDT) Only the most recent of2 resultswithin the time period is included. Fluid Source Pleural 09/29/2024 4:49 PM CDT [facility] Body Fluid Total Cell Count 100 x10E6/L 09/29/2024 4:49 PM CDT [facility] Neutrophils Fluid Percent 7 % 09/29/2024 4:49 PM CDT [facility] Lymphocytes Fluid Percent 51 % 09/29/2024 4:49 PM CDT [facility] Macrophages Fluid Percent 23 % 09/29/2024 4:49 PM CDT [facility] Plasma Cells Fluid Percent 2 % 09/29/2024 4:49 PM CDT [facility] Mesothelial Cells Fluid Percent 4 % 09/29/2024 4:49 PM CDT [facility] Comment: Other Cells Fluid Percent 13 % 09/29/2024 4:49 PM CDT [facility] Comment:A potentially abnorm al cell population has been identified. A pathologist review has been ordered. Additional testing may be required to rule out malignancy and/or further classify this cell population. Fluid PLEURAL FLUID / Unknown Collection / Unknown 09/29/2024 2:39 PM CDT 09/29/2024 2:48 PM CDT Narrative [facility] - 09/29/2024 4:49 PM CDT No reference ranges established for body fluid differential cell counts. The test results must be integrated into the clinical context for interpretation. Josh Lazcano DO LAB - BODY FLUID ORDERABLES Fi nal Result Performing Organization Address City/[facility]/ZIP Co de Phone Number [facility] [address] [place] [address], [place] [phone] * CULTURE FLUID+GRAM STAIN (09/29/2024 2:39 PM CDT) Only the most recent of2 resultswithin the time period is included. Culture No growth BELINDA 10/05/2024 3:03 PM CDT [facility] Gram Stain Rare Polymorphonuclear cells 10/05/2024 3:03 PM CDT [facility] Gram Stain No organisms seen 025 3:03 PM CDT [facility] Fluid PLEURAL FLUID / Unknown Collection / Unknown 09/29/2024 2:39 PM CDT 09/29/2024 2:50 PM CDT Josh Lazcano DO LAB - MICROBIOLOGY ORDERABLES Final Result [facility] [address] [place] [address], [place] [phone] * CELL COUNT W DIFFERENTIAL FLUID (09/29/2024 2:39 PM CDT) Only the most recent of2 resultswithin the time period is included. Fluid Source Pleural 09/29/2024 4:49 PM CDT [facility] Fluid Appearance TURBID 09/29/2024 4:49 PM CDT [facility] Fluid Color ORANGE 09/29/2024 4:49 PM CDT [facility] Total Nucleated Cells Fluid 854 Reference Range Not Established x10E6/L 09/29/2024 4:49 PM CDT [facility] RBC Count Fluid 15,000 Reference Range Not Established x10E6/L 09/29/2024 4:49 PM CDT [facility] Fluid PLEURAL FLUID / Unknown Collection / Unknown 09/29/2024 2:39 PM CDT 09/29/2024 2:48 PM CDT Narrative [facility] - 09/29/2024 4:49 PM CDT No reference ranges established for body fluid cell counts. Any reference ranges provided are derived from published literature. The test results must be integrated into the clinical context for interpretation. us Josh Lazcano DO LAB - BODY FLUID ORDERABLES Fi nal Result [facility] [address] [place] [address], [facility] [phone] * CARDIAC EKG ORDER (09/29/2024 1:25 PM CDT) Narrative 09/29/2024 1:25 PM CDT Ordered by an unspecified provider. us Scanned Document CARDIAC SERVICES ORDERABLES Fin al Result * CT Chest Pe W Abd Pelvis W Cont (09/28/2024 5:55 PM CDT) Anatomical Region Laterality Modality Chest, Abdomen, Pelvis Computed Tomography 09/28/2024 4:38 PM CDT Impressions 09/28/2024 10:00 PM CDT Impression: 1.Inadequate study for evaluation of pulmonary embolism. No evidence of central large pulmonary embolism. Evaluation of segmental and subsegmental pulmonary arteries is degraded by inadequate contrast opacification. 2.Redemonstrated a large mass centered in the left upper lobe up to 12 cm which extends into the left hilum consistent with biopsy-proven small cell carcinoma. 3.Pleural-based nodularity is redemonstrated. Increased, large volume left malignant pleural effusion with complete atelectatic collapse of the right lung and mass effect against the mediastinum causing left to right displacement. The distal left mainstem bronchus is compressed and occluded due to mass effect. 4.Similar appearance of metastatic and supraclavicular mediastinal lymphadenopathy. 5.Numerous hypoattenuating lesions within the liver up to 3.2 cm with periportal lymphadenopathy concerning for metastasis. > Dictated by Luis Angel Jensen MD (vice president [employer]). Critical findings were discussed in detail with the patient's care provider, Dr. Garvey by Dr. Jensen via telephone at 7:01 PM on 09/28/2024 with readback comprehension and verification. > Dictated by Licensed Nursing Assistant I, Mamadou Dykes have personally reviewed and interpreted this examination/study. > Interpreting Provider: Mamadou Dykes on 09/28/2024 10:00 PM Narrative 09/28/2024 10:00 PM CDT PROCEDURE: CT CHEST PE W ABD PELVIS W CONT DATE/TIME OF EXAM: 09/28/2024 5:56 PM CLINICAL INFORMATION: None relevant/not provided if blank. Indication: R07.9: Chest pain, unspecified type Additional History: COMPARISON: CT chest 09/16/2024 TECHNIQUE: CT of the chest was performed following the uneventful administration of 75 mL of Isovue 370 intravenous contrast according to a pulmonary embolism protocol. CT of the abdomen and pelvis was also performed during the portal venous phase according to standard protocol. Multiplanar reconstructions were created. Findings: Chest: Study Quality This examination for the diagnosis of pulmonary embolism is inadequate. Pulmonary Arteries: No evidence of central pulmonary embolism. The left mainstem bronchus is slightly narrowed due to mass effect from the mass and mediastinal lymphadenopathy. Thoracic Vasculature: The aorta and its branch vessels are atherosclerotic. Lower Neck and Axillae: Normal. Lungs: Debris is seen within the trachea. There is increased left pleural effusion (large volume), likely malignant, with complete atelectatic collapse of the right lung and mass effect against the mediastinum causing left to right displacement (Series 9, Image 173). Redemonstrated a large, mildly enhancing mass centered within the left upper lobe measuring up to 12 cm in maximum dimension (Series 6, Image 67) , biopsy-proven to represent small cell carcinoma. There is occlusion of the distal left mainstem bronchus. The mass extends into the left hilum. Extensive nodular pleural thickening is redemonstrated most prominent at the anterior aspect of the left thorax (Series 6, Image 104). No pneumothorax. The right lung is relatively clear with redemonstration of a few calcified granuloma is in the lower lobe. Heart and Pericardium: The cardiac chambers are normal in size. No pericardial fluid or thickening is present. The coronary arteries are atherosclerotic. Mediastinum and Jessica: Conglomerate lymphadenopathy in the mediastinum is grossly unchanged abutting the aorta and and left pulmonary artery and veins. For reference a conglomeration of lymph nodes in the prevascular region measuring 4.5 x 6.8 cm (series 6 image 102). Multiple left supraclavicular lymph node measuring up to 2.3 x 1.9 cm (series 6 image 7). Other findings: None. Abdomen/pelvis: Liver: The liver has a nodular surface, consistent with hepatic cirrhosis. There are numerous hypoattenuating lesions throughout the liver, the largest measures up to 3.2 cm, (Series 7, Image 48). There are perigastric and perisplenic varices. Gallbladder and Bile Ducts: The gallbladder is absent. Spleen: Multiple calcified granulomas are noted in the spleen, likely sequelae of prior granulomatous disease. The spleen is enlarged. Pancreas: Normal. Adrenals: There is nodular thickening of the right adrenal gland, incompletely characterized. The left adrenal gland is not definitively visualized. Kidneys: There are numerous simple cysts in the bilateral kidneys. A 1.3 cm cystic-appearing lesion in the lower pole of the left kidney is of higher than simple fluid density (Series 7, Image 91). Gastrointestinal: The stomach and visualized loops of small bowel are unremarkable. Extensive colonic diverticulosis without evidence of diverticulitis is seen. Normal appendix. Mesentery/Peritoneum/Retroperitoneum: No free intraperitoneal air. No free fluid in the abdomen or pelvis. There is periportal lymphadenopathy, for example a 1.8 cm node (Series 7, Image 47). Bladder: Normal. Reproductive Organs: The prostate is enlarged. Abdominal Vasculature: Atherosclerotic calcification of the aorta and its branch vessels. Bones: Bone windows demonstrate no suspicious lytic or blastic lesions. The visible osseous structures are intact. Degenerative changes are seen in the spine. Soft tissues: Bilateral fat-containing inguinal hernias Procedure Note Mamadou Padilla MD - 09/28/2024 PROCEDURE: CT CHEST PE W ABD PELVIS W CONT DATE/TIME OF EXAM: 09/28/2024 5:56 PM CLINICAL INFORMATION: None relevant/not provided if blank. Indication: R07.9: Chest pain, unspecified type Additional History: COMPARISON: CT chest 09/16/2024 TECHNIQUE: CT of the chest was performed following the uneventful administration of 75 mL of Isovue 370 intravenous contrast according toa pulmonary embolism protocol. CT of the abdomen and pelvis was also performed during the portal venous phase according to standard protocol. Multiplanar reconstructions were created. Findings: Chest: Study Quality This examination for the diagnosis of pulmonary embolism is inadequate. Pulmonary Arteries: No evidence of central pulmonary embolism. The left mainstem bronchus is slightly narrowed due to mass effect from the mass and mediastinal lymphadenopathy. Thoracic Vasculature: The aorta and its branch vessels are atherosclerotic. Lower Neck and Axillae: Normal. Lungs: Debris is seen within the trachea. There is increased left pleuraleffusion (large volume), likely malignant, with complete atelectatic collapse ofthe right lung and mass effect against the mediastinum causing left to right displacement (Series 9, Image 173). Redemonstrated a large, mildly enhancing mass centered within the left upper lobe measuring up to 12 cm in maximum dimension (Series 6, Image67) , biopsy-proven to represent small cell carcinoma. There is occlusion of the distal left mainstem bronchus. The mass extends into the left hilum. Extensive nodular pleural thickening is redemonstrated most prominent at the anterior aspect of the left thorax (Series 6, Image 104). No pneumothorax. The right lung is relatively clear with redemonstration ofa few calcified granuloma is in the lower lobe. Heart and Pericardium: The cardiac chambers are normal in size. No pericardial fluid orthickening is present. The coronary arteries are atherosclerotic. Mediastinum and Jessica: Conglomerate lymphadenopathy in the mediastinum is grossly unchanged abutting the aorta and and left pulmonary artery and veins. For referencea conglomeration of lymph nodes in the prevascular region measuring 4.5 x6.8 cm (series 6 image 102). Multiple left supraclavicular lymph nodemeasuring up to 2.3 x 1.9 cm (series 6 image 7). Other findings: None. Abdomen/pelvis: Liver: The liver has a nodular surface, consistent with hepatic cirrhosis.There are numerous hypoattenuating lesions throughout the liver, the largest measures up to 3.2 cm, (Series 7, Image 48). There are perigastric and perisplenic varices. Gallbladder and Bile Ducts: The gallbladder is absent. Spleen: Multiple calcified granulomas are noted in the spleen, likely sequelaeof prior granulomatous disease. The spleen is enlarged. Pancreas: Normal. Adrenals: There is nodular thickening of the right adrenal gland, incompletely characterized. The left adrenal gland is not definitively visualized. Kidneys: There are numerous simple cysts in the bilateral kidneys. A 1.3 cm cystic-appearing lesion in the lower pole of the left kidney is ofhigher than simple fluid density (Series 7, Image 91). Gastrointestinal: The stomach and visualized loops of small bowel are unremarkable.Extensive colonic diverticulosis without evidence of diverticulitis is seen.Normal appendix. Mesentery/Peritoneum/Retroperitoneum: No free intraperitoneal air. No free fluid in the abdomen or pelvis.There is periportal lymphadenopathy, for example a 1.8 cm node (Series 7,Image 47). Bladder: Normal. Reproductive Organs: The prostate is enlarged. Abdominal Vasculature: Atherosclerotic calcification of the aorta and its branch vessels. Bones: Bone windows demonstrate no suspicious lytic or blastic lesions. The visible osseous structures are intact. Degenerative changes are seen inthe spine. Soft tissues: Bilateral fat-containing inguinal hernias Impression: 1.Inadequate study for evaluation of pulmonary embolism. No evidence of central large pulmonary embolism. Evaluation of segmental andsubsegmental pulmonary arteries is degraded by inadequate contrast opacification. 2.Redemonstrated a large mass centered in the left upper lobe up to 12cm which extends into the left hilum consistent with biopsy-proven smallcell carcinoma. 3.Pleural-based nodularity is redemonstrated. Increased, large volumeleft malignant pleural effusion with complete atelectatic collapse of theright lung and mass effect against the mediastinum causing left to right displacement. The distal left mainstem bronchus is compressed andoccluded due to mass effect. 4.Similar appearance of metastatic and supraclavicular mediastinal lymphadenopathy. 5.Numerous hypoattenuating lesions within the liver up to 3.2 cm with periportal lymphadenopathy concerning for metastasis. > Dictated by Luis Angel Jensen MD (vice president [employer]). Critical findings were discussed in detail with the patient's care provider, Dr. Garvey by Dr. Jensen via telephone at 7:01 PM on 09/28/2024 with readback comprehension and verification. > Dictated by Licensed Nursing Assistant I, Mamadou Dykes have personally reviewed and interpreted this examination/study. > Interpreting Provider: Mamadou Dykes on 09/28/2024 10:00 PM us Home Garvey MD CT ORDERABLES Final Resu lt * TROPONIN-I HIGH SENSITIVE REFLEX 1HOUR (09/28/2024 4:47 PM CDT) Troponin I High Sensitive 9 <=35 ng/L 09/28/2024 5:28 PM CDT [facility] Delta Troponin I HS 09/28/2024 5:28 PM CDT [facility] Comment:Delta value intentio rolando not calculated. Baseline to 1 hour specimen collection interval exceeded. Blood BLOOD SPECIMEN / Unknown Venipuncture / Unknown 09/28/2024 4:47 PM CDT 09/28/2024 4:47 PM CDT Cain Christianson MD LAB - CHEMISTRY ORDERABLES F inal Result [facility] [address] [place] [address], [facility] [phone] * XR CHEST 2VW (09/28/2024 1:56 PM CDT) Anatomical Region Laterality Modality Chest Digital Radiogra phy 09/28/2024 2:34 PM CDT Narrative 09/28/2024 2:48 PM CDT PROCEDURE: XR CHEST 2VW, DATE/TIME OF EXAM: 09/28/2024 1:57 PM, LOCATION [facility] INDICATION: R07.9: Chest pain, unspecified type ADDITIONAL CLINICAL INFORMATION: Ordering Provider Reason For Exam: r/o consolidation vs effusion vs other Technologist Note: Additional: COMPARISON: Chest x-ray 09/16/2024. TECHNIQUE: AP and lateral radiographs of the chest. FINDINGS/IMPRESSION: Complete opacification of the left lung, worse compared to prior exam. Left pleural effusion cannot be excluded. No significant midline shift. Improvement in mild right basilar atelectasis compared to prior. No pneumothorax. The cardiomediastinal silhouette is obscured. No acute osseous abnormalities. > Dictated by Kaylee Ty MD (vice president [employer]). > Dictated by Licensed Nursing Assistant I, Jasson Hamilton MD have personally reviewed and interpreted this examination/study. > Interpreting Provider: Jasson Hamilton MD on 09/28/2024 2:48 PM Procedure Note Jasson Hamilton MD - 09/28/2024 PROCEDURE: XR CHEST 2VW, DATE/TIME OF EXAM: 09/28/2024 1:57 PM, LOCATION [facility] INDICATION: R07.9: Chest pain, unspecified type ADDITIONAL CLINICAL INFORMATION: Ordering Provider Reason For Exam: r/o consolidation vs effusion vsother Technologist Note: Additional: COMPARISON: Chest x-ray 09/16/2024. TECHNIQUE: AP and lateral radiographs of the chest. FINDINGS/IMPRESSION: Complete opacification of the left lung, worse compared to prior exam.Left pleural effusion cannot be excluded. No significant midline shift. Improvement in mild right basilar atelectasis compared to prior. No pneumothorax. The cardiomediastinal silhouette is obscured. No acute osseous abnormalities. > Dictated by Kaylee Ty MD (vice president [employer]). > Dictated by Licensed Nursing Assistant I, Jasson Hamilton MD have personally reviewed and interpreted this examination/study. > Interpreting Provider: Jasson Hamilton MD on 09/28/2024 2:48 PM us Avelina Wakefield PA-C DIAGNOSTIC IMAGING ORDERABLES Final Result * TROPONIN-I HIGH SENSITIVE BASELINE + 1HR (09/28/2024 12:39 PM CDT) Troponin I High Sensitive 7 <=35 ng/L 09/28/2024 1:45 PM CDT [facility] Blood BLOOD SPECIMEN / Unknown Venipuncture / Unknown 09/28/2024 12:39 PM CDT 09/28/2024 1:04 PM CDT us Cain Christianson MD LAB - CHEMISTRY ORDERABLES F inal Result [facility] [address] [place] [address], [facility] [phone] * (ABNORMAL) BLOOD GASES DUYEN + COOX PANEL (09/28/2024 12:39 PM CDT) pH Venous 7.40 7.32 - 7.42 pH 09/28/2024 1:06 PM [facility] pO2 Venous 26(L) 35 - 40 mmHg 09/28/2024 1:06 PM [facility] pCO2 Venous 43 40 - 50 mmHg 09/28/2024 1:06 PM [facility] HCO3 Venous 26.6 20 - 30 mmol/L 09/28/2024 1:06 PM [facility] Base Excess Venous 1.5 -2.0 - 2.0 mmol/L 09/28/2024 1:06 PM [facility] Oxyhemoglobin Venous 40.6 % 09/16 1:06 PM [facility] Deoxyhemoglobin (HHB) Venous % 55.3 % 09/28/2024 1:06 PM [facility] Methemoglobin <0.8 0.0 - 2.0 % 09/28/2024 1:06 PM [facility] Carboxyhemoglobin 3.6(H) 0.0 - 2.0 % 2024 1:06 PM [facility] O2 Content Venous 7.4 Interpret within clinical context ml/dL 09/28/2024 1:06 PM [facility] Hemoglobin by COOX 13.0 12.0 - 17.6 g/dL 09/28/2024 1:06 PM [facility] O2 Saturation Venous 42(L) >=70 % 09/16 1:06 PM [facility] FI O2 Mixed Venous 21.0 % 2024 1:06 PM [facility] Blood BLOOD SPECIMEN / Unknown Venipuncture / Unknown 09/28/2024 12:39 PM CDT 09/28/2024 1:01 PM CDT Narrative [facility] - 09/28/2024 1:06 PM CDT Carboxyhemoglobin Normal Concentration: Non-smokers: 0-2%; Smokers: 0-9%; Toxic: >20% us Avelina Wakefield PA-C LAB - BLOOD GASES ORDERABLES Final Result [facility] [address] [place] [address], [facility] [phone] * (ABNORMAL) CBC W AUTO DIFFERENTIAL (09/28/2024 12:39 PM CDT) Only the most recent of4 resultswithin the time period is included. WBC 7.9 4.0 - 10.7 x10E9/L 09/28/2024 1:10 PM [facility] RBC Count 3.82(L) 4.30 - 5.80 x10E12/L 09/28/2024 1:10 PM [facility] Hemoglobin 12.7(L) 13.3 - 17.5 g/dL 09/28/2024 1:10 PM [facility] Hematocrit 36.7(L) 38.7 - 51.1 % 09/28/2024 1:10 PM [facility] MCV 96.1 80.0 - 98.0 fL 09/28/2024 1:10 PM [facility] MCH 33.2 26.7 - 33.6 pg 09/28/2024 1:10 PM [facility] MCHC 34.6 31.7 - 36.3 g/dL 09/28/2024 1:10 PM [facility] RDW-CV 12.8 11.3 - 14.8 % 09/28/2024 1:10 PM [facility] Platelet Count 271 150 - 420 x10E9/L 09/28/2024 1:10 PM [facility] MPV 10.0 7.8 - 11.4 fL 09/28/2024 1:10 PM [facility] Neutrophil % 71.1 41.0 - 74.0 % 09/28/2024 1:10 PM CDT [facility] Lymphocyte % 13.6(L) 17.0 - 47.0 % 09/28/2024 1:10 PM T [facility] Monocyte % 13.7(H) 3.0 - 11.0 % 09/28/2024 1:10 PM T [facility] Eosinophil % 0.9 0.0 - 7.0 % 09/28/2024 1:10 PM T [facility] Basophil % 0.3 0.0 - 1.6 % 09/28/2024 1:10 PM CDT [facility] Immature Granulocytes % 0.4 0.0 - 1.0 % 09/28/2024 1:10 PM T [facility] Neutrophil Absolute 5.62 1.60 - 7.50 x10E9/L 09/28/2024 1:10 PM T [facility] Lymphocyte Absolute 1.07 1.00 - 4.40 x10E9/L 09/28/2024 1:10 PM T [facility] Monocyte Absolute 1.08(H) 0.15 - 1.00 x10E9/L 09/28/2024 1:10 PM T [facility] Eosinophil Absolute 0.07 0.00 - 0.60 x10E9/L 09/28/2024 1:10 PM T [facility] Basophil Absolute 0.02 0.00 - 0.13 x10E9/L 09/28/2024 1:10 PM [facility] Blood BLOOD SPECIMEN / Unknown Venipuncture / Unknown 09/28/2024 12:39 PM CDT 09/28/2024 1:04 PM CDT us Cain Christianson MD LAB - HEMATOLOGY ORDERABLES Final Result [facility] [address] [place] [address], [facility] [phone] * B-TYPE NATRIURETIC PEPTIDE (09/28/2024 12:39 PM CDT) BNP 69 <100 pg/mL 09/28/2024 1:43 PM [facility] Comment: A decision threshold of 100 pg/mL has been demonstrated to provide the maximal combination of sensitivity, specificity and predictive value for the diagnosis of congestive heart failure (CHF). Virtually all patients with no evidence of CHF have BNP values less than 100 pg/mL. A BNP value greater than 100 pg/mL is consistent with the diagnosis of CHF in the appropriate clinical setting. In a study of 693 patients (male and female) with diagnosed CHF, the following values were determined based on the NYHA functional classification system: NYHA Functional Class Mean Valule (pg/mL) % >100 pg/mL I 320 58.1 II 432 73.0 III 656 79.0 IV 1635 98.3 Blood BLOOD SPECIMEN / Unknown Venipuncture / Unknown 09/28/2024 12:39 PM CDT 09/28/2024 1:06 PM CDT Avelina Wakefield PA-C LAB - CHEMISTRY ORDERABLES nal Result [facility] [address] [place] [address], [facility] [phone] * (ABNORMAL) COMPREHENSIVE METABOLIC PANEL (09/28/2024 12:39 PM CDT) Only the most recent of5 resultswithin the time period is included. BUN 26 7 - 26 mg/dL 09/28/2024 1:42 PM [facility] Creatinine 1.02 0.71 - 1.16 mg/dL 09/28/2024 1:42 PM [facility] Sodium 134(L) 136 - 145 mmol/L 09/28/2024 1:42 PM [facility] Potassium 5.0(H) 3.5 - 4.5 mmol/L 09/28/2024 1:42 PM [facility] Chloride 103 98 - 107 mmol/L 09/28/2024 1:42 PM [facility] CO2 24 22 - 29 mmol/L 09/28/2024 1:42 PM [facility] Glucose 102(H) 70 - 99 mg/dL 09/28/2024 1:42 PM [facility] Calcium 9.6 8.4 - 10.2 mg/dL 09/28/2024 1:42 PM [facility] Protein Total 7.0 6.0 - 8.3 g/dL 09/28/2024 1:42 PM [facility] Albumin 2.9(L) 3.4 - 5.0 g/dL 09/28/2024 1:42 PM [facility] Bilirubin Total 1.1 0.2 - 1.2 mg/dL 09/28/2024 1:42 PM [facility] Alkaline Phosphatase 95 40 - 150 U/L 09/28/2024 1:42 PM [facility] ALT 19 5 - 55 U/L 09/28/2024 1:42 PM [facility] AST 66(H) 5 - 34 U/L 09/28/2024 1:42 PM [facility] Anion Gap 7 6 - 16 09/28/2024 1:42 PM [facility] BUN/Creatinine Ratio 25(H) 7 - 23 09/28/2024 1:42 PM [facility] Osmolality Calculated 283 275 - 295 mOsm/kg 09/28/2024 1:42 PM [facility] Albumin/Globulin Ratio 0.7(L) 1.1 - 2.3 09/28/2024 1:42 PM [facility] eGFR by CKD-EPI 78(L) >=90 mL/min/1.7 3 m2 09/28/2024 1:42 PM [facility] Comment:Estimated Glomerular Filtration Rate (eGFR) calculated using the CKD-EPI Creatinine Equation (2020), per the National Kidney Foundation and [place] [employer] of Nephrology recommendations. Blood BLOOD SPECIMEN / Unknown Venipuncture / Unknown 09/28/2024 12:39 PM CDT 09/28/2024 1:04 PM [facility] us Cain Christianson MD LAB - CHEMISTRY ORDERABLES F inal Result [facility] [address] [place] [address], [facility] [phone] * MAGNESIUM BLOOD (09/28/2024 12:39 PM CDT) Only the most recent of3 resultswithin the time period is included. Pathologist [facility] Magnesium 1.9 1.6 - 2.6 mg/dL 09/28/2024 1:42 PM CDT [facility] Blood BLOOD SPECIMEN / Unknown Venipuncture / Unknown 09/28/2024 12:39 PM CDT 09/28/2024 1:04 PM CDT Cain Christianson MD LAB - CHEMISTRY ORDERABLES F inal Result Performing Organization Address City/[facility]/ZIP Co de Phone Number [facility] [address] [place] [address], [facility] [phone] * EKG 12-LEAD (09/28/2024 12:16 PM CDT) Pathologist [facility] Ventricular Rate 118 BPM [facility] Atrial Rate 118 BPM [facility] P-R Interval 176 ms [facility] QRS Duration ms 52 ms [facility] Q-T Interval ms 286 ms [facility] QTC Calculation (Bezet) 400 ms [facility] Calculated R [place] 24 degrees SL [facility]USE Calculated T [place] 47 degrees [facility] Interpretation EKG SINUS TACHYCARDIA LOW VOLTAGE QRS CANNOT RULE OUT ANTERIOR INFARCT , AGE UNDETERMINED ABNORMAL ECG NO PREVIOUS ECGS AVAILABLE Confirmed by DANNY JAMISON MD ([id number]) on 10/02/2024 9:14:57 PM [facility] 09/28/2024 12:1 6 PM CDT 10/02/2024 9:14 PM CDT Cain Christianson MD ECG ORDERABLES Edited Resul t - Final [facility] * HIV-1 HIV-2 ANTIBODY + HIV P24 AG PANEL (09/27/2024 11:51 AM CDT) Pathologist [facility] HIV Antigen/Antibod y 1 & 2 Non-reacti ve Non-react arianna 09/27/2024 1:13 PM CDT [facility] Comment:No Laboratory eviden ce of HIV infection. Blood BLOOD SPECIMEN / Unknown Lab Venipuncture / Unknown 09/27/2024 11:51 AM CDT 09/27/2024 11:53 AM CDT us Yifan Potter MD LAB - CHEMISTRY ORDERABLES F inal Result Performing Organization Address City/[facility]/ZIP Co de Phone Number [address] [address], [facility] [phone] * HEPATITIS B SURFACE ANTIBODY QUANT (09/27/2024 11:51 AM CDT) Hepatitis B Virus Surface Antibody Non-react arianna Non-react arianna 09/27/2024 3:29 PM CDT [facility] Comment: < 8 mIU/mL Hepatitis B surface Antibody (HBsAb). Nonreactive for HBsAb - individual is considered not immune to Hepatitis B Virus infection. Hepatitis B Surface Antibody Quantitative <3.0 <8.0 mIU/mL 09/27/2024 3:29 PM CDT [facility] Comment: Hepatitis B Surface Antibody Numeric Result Interpretation: Nonreactive: <8.0 mIU/mL Indeterminate: 8.0 - 12.0 mIU/mL Reactive: >12.0 mIU/mL Blood BLOOD SPECIMEN / Unknown Lab Venipuncture / Unknown 09/27/2024 11:51 AM CDT 09/27/2024 11:53 AM CDT Narrative [facility] - 09/27/2024 3:29 PM CDT This assay should not be used for blood, plasma, or tissue donor screening. This assay is not recommended for neonates born to HBV-infected or suspected HBV-infected mothers. us Yifan Potter MD LAB - SEROLOGY ORDERABLES Fi nal Result Performing Organization Address City/[facility]/ZIP Co de Phone Number [address] [address], [facility] [phone] * HEPATITIS B CORE ANTIBODY TOTAL (09/27/2024 11:51 AM CDT) HBc Antibody Total Non-reacti ve Non-reacti ve 09/27/2024 1:13 PM CDT [facility] Blood BLOOD SPECIMEN / Unknown Lab Venipuncture / Unknown 09/27/2024 11:51 AM CDT 09/27/2024 11:53 AM CDT Yifan Potter MD LAB - CHEMISTRY ORDERABLES F inal Result Performing Organization Address [facility]/ZIP Co de Phone Number [address] [address], [facility] [phone] * HEPATITIS B SURFACE ANTIGEN W RFLX CONFIRMATION (09/27/2024 11:51 AM CDT) Hepatitis B Virus Surface Antigen Non-reacti ve Non-reacti ve 09/27/2024 1:13 PM CDT [facility] Blood BLOOD SPECIMEN / Unknown Lab Venipuncture / Unknown 09/27/2024 11:51 AM CDT 09/27/2024 11:53 AM CDT Yifan Potter MD LAB - CHEMISTRY ORDERABLES F inal Result Performing Organization Address [facility] Co de Phone Number [address] [address], [facility] [phone] * HEPATITIS C ANTIBODY (09/27/2024 11:51 AM CDT) Hepatitis C Antibody Non-react arianna Non-reac tive 09/27/2024 1:13 PM CDT [facility] Comment:Hepatitis C Antibody screen indicates no serologic evidence of past or current infection with Hepatitis C Virus. Patients with unexplained liver disease who are immunocompromised or suspected of having acute Hepatitis C infection may benefit from Nucleic Acid Test (JAIME) for Hepatitis C Viral RNA to confirm Hepatitis C status. Blood BLOOD SPECIMEN / Unknown Lab Venipuncture / Unknown 09/27/2024 11:51 AM CDT 09/27/2024 11:53 AM CDT Yifan Potter MD LAB - CHEMISTRY ORDERABLES F inal Result [facility] [address] [place] [address], [facility] [phone] * (ABNORMAL) RENAL FUNCTION PANEL (09/17/2024 3:32 PM [facility]) BUN 36(H) 7 - 26 mg/dL 09/17/2024 4:14 PM [facility] Creatinine 1.20(H) 0.71 - 1.16 mg/dL 09/17/2024 4:14 PM [facility] Sodium 131(L) 136 - 145 mmol/L 09/17/2024 4:14 PM [facility] Potassium 4.0 3.5 - 4.5 mmol/L 09/17/2024 4:14 PM [facility] Chloride 101 98 - 107 mmol/L 09/17/2024 4:14 PM [facility] CO2 24 22 - 29 mmol/L 09/17/2024 4:14 PM [facility] Glucose 115(H) 70 - 99 mg/dL 09/17/2024 4:14 PM [facility] Albumin 2.7(L) 3.4 - 5.0 g/dL 09/17/2024 4:14 PM [facility] Calcium 8.8 8.4 - 10.2 mg/dL 09/17/2024 4:14 PM [facility] Phosphorus 3.1 2.8 - 5.1 mg/dL 09/17/2024 4:14 PM [facility] Anion Gap 6 6 - 16 09/17/2024 4:14 PM [facility] BUN/Creatinine Ratio 30(H) 7 - 23 09/17/2024 4:14 PM [facility] Osmolality Calculated 281 275 - 295 mOsm/kg 09/17/2024 4:14 PM [facility] eGFR by CKD-EPI 64(L) >=90 mL/min/1.7 3 m2 09/17/2024 4:14 PM [facility] Comment:Estimated Glomerular Filtration Rate (eGFR) calculated using the CKD-EPI Creatinine Equation (2020), per the National Kidney Foundation and [place] Society of Nephrology recommendations. Blood BLOOD SPECIMEN / Unknown Venipuncture / Unknown 09/17/2024 3:32 PM CDT 09/17/2024 3:41 PM CDT us Joo Gaspar MD LAB - CHEMISTRY ORDERABLES Fin al Result Performing Organization Address [facility] Co de Phone Number [address] [address], [facility] [phone] * (ABNORMAL) PT-INR (09/16/2024 9:55 PM CDT) PT 15.5(H) 12.1 - 14.8 Seconds 09/16/2024 10:31 PM CDT [facility] INR 1.3 See Comment 09/16/2024 10:31 PM CDT [facility] Comment:The suggested therap eutic range for standard coumadin (warfarin) therapy is an INR of 2.0-3.0. For high-risk patients (Mechanical Mitral Valve Prosthesis, etc.), the suggested prophylactic therapeutic range is an INR of 2.5-3.5. Blood BLOOD SPECIMEN / Unknown Venipuncture / Unknown 09/16/2024 9:55 PM CDT 09/16/2024 10:03 PM CDT us Joo Gaspar MD LAB - COAGULATION ORDERABLES F inal Result Performing Organization Address [facility] Co de Phone Number [address] [address], [place] [phone] * (ABNORMAL) GLUCOSE - POINT OF CARE (09/16/2024 6:56 PM CDT) Glucose WB/POC 208(H) 70 - 99 mg/dL 09/16/2024 6:58 PM CDT [facility] Specimen Type Arterial/C apillary 09/16/2024 6:58 PM CDT [facility] Blood BLOOD SPECIMEN / Unknown 09/16/2024 6:56 PM CDT 09/16/2024 6:58 PM CDT us Joo Gaspar MD LAB - POINT OF CARE ORDERABLES Final Result [facility] [address] [place] [address], [facility] [phone] * CYTOLOGY NON-FINANCIAL SALES ASSISTANT PANEL (STL) (09/16/2024 4:39 PM CDT) Only the most recent of2 resultswithin the time period is included. Case Report Medical Cytology Report Case: [id number] Authorizing Provider: Yifan Potter MD Collected: 09/16/2024 04:39 PM Ordering Location: [facility] Received: 09/19/2024 07:52 AM Pathologist: Yifan Townsend MD Specimen: Pleural Fluid 09/20/2024 8:20 AM CDT [facility] Specimen Adequacy Adequate cellularity for evaluation. 09/20/2024 8:20 AM T [facility] Final Diagnosis Left pleural effusion, thoracentesis: Positive for malignancy: Small cell carcinoma. Comment: The cytologic findings correlate with the concomitant tissue biopsy findings (see separate case [id number]). 09/20/2024 8:20 AM T 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 09/20/2024 8:20 AM T [facility] Pathologist Location at [facility] Disclaimer The performance characteristics of all immunohistochemical and indirect immunofluorescence stains (if any) cited in this report were determined by the Histopathology Laboratory of [facility]. Some of these tests rely on the use of analyte-specific reagents and are subject to specific labeling requirements by the US Food and Drug Administration. Such tests were developed by the Histology Laboratory of [facility] and have not been cleared or approved by the FDA. The FDA has determined that such clearance and approval is not necessary. These tests are used for clinical purposes and should not be regarded as investigational or for research. This laboratory is certified under the Clinical Laboratory Improvement Amendments (CLIA) as qualified to perform high complexity clinical laboratory testing. This case has been personally reviewed and interpreted by the attending (teaching) pathologist. 09/20/2024 8:20 AM CDT [facility] Embedded Images 09/20/2024 8:20 AM CD[address] [facility] Pathology/Cytolo gy PLEURAL FLUID / Unknown Collection / Unknown 09/16/2024 4:39 PM CDT 09/19/2024 7:52 AM CDT Yifan Potter MD LAB - PATHOLOGY/CYTOLOGY ORD ERABLES Final Result Performing Organization Address [facility] Co de Phone Number [facility] [address] [facility] [place] [address], [facility] [phone] * CHOLESTEROL BODY FLUID (09/16/2024 4:34 PM CDT) Total Cholesterol Body Fluid 69 Not Established for Fluids mg/dL 09/16/2024 5:29 PM CDT [facility] Fluid Type Pleural Fluid 09/16/2024 5:29 PM CDT [facility] Fluid PLEURAL FLUID / Unknown Collection / Unknown 09/16/2024 4:34 PM CDT 09/16/2024 4:51 PM CDT Narrative [facility] - 09/16/2024 5:29 PM CDT The analytical performance of this test has been independently validated by the laboratory. A reference range has not been established for this fluid. Comparison of this result with the concentration in blood, serum or plasma is recommended. us Yifan Potter MD LAB - BODY FLUID ORDERABLES Final Result Performing Organization Address [facility]/ZIP Co de Phone Number [facility] [address] [place] [address], [facility] [phone] * TRIGLYCERIDES BODY FLUID (09/16/2024 4:34 PM CDT) Triglycerides Fluid 27 Not Established For Fluids mg/dL 09/16/2024 5:29 PM CDT [facility] Fluid Type Pleural Fluid 09/16/2024 5:29 PM CDT [facility] Fluid PLEURAL FLUID / Unknown Collection / Unknown 09/16/2024 4:34 PM CDT 09/16/2024 4:51 PM CDT Narrative [facility] - 09/16/2024 5:29 PM CDT The analytical performance of this test has been independently validated by the laboratory. A reference range has not been established for this fluid. Comparison of this result with the concentration in blood, serum or plasma is recommended. us Yifan Potter MD LAB - BODY FLUID ORDERABLES Final Result Performing Organization Address [facility] Co de Phone Number [address] [address], [facility] [phone] * ALBUMIN BODY FLUID (09/16/2024 4:34 PM CDT) Albumin Fluid 2.2 g/dL 09/16/2024 5:29 PM CDT [facility] Fluid Type Pleural Fluid 09/16/2024 5:29 PM CDT [facility] Fluid PLEURAL FLUID / Unknown Collection / Unknown 09/16/2024 4:34 PM CDT 09/16/2024 4:51 PM CDT Narrative [facility] - 09/16/2024 5:29 PM CDT The analytical performance of this test has been independently validated by the laboratory. A reference range has not been established for this fluid. Comparison of this result with the concentration in blood, serum or plasma is recommended. us Yifan Potter MD LAB - BODY FLUID ORDERABLES Final Result Performing Organization Address [facility] Co de Phone Number [address] [address], [place] [phone] * AMYLASE BODY FLUID (09/16/2024 4:34 PM CDT) Amylase Fluid 130 Not Established For Fluids Units/L 09/16/2024 5:28 PM CDT [facility] Fluid Type Pleural Fluid 09/16/2024 5:28 PM CDT [facility] Fluid PLEURAL FLUID / Unknown Collection / Unknown 09/16/2024 4:34 PM CDT 09/16/2024 4:51 PM CDT Narrative [facility] - 09/16/2024 5:28 PM CDT The analytical performance of this test has been independently validated by the laboratory. A reference range has not been established for this fluid. Comparison of this result with the concentration in blood, serum or plasma is recommended. us Yifan Potter MD LAB - BODY FLUID ORDERABLES Final Result [facility] [address] [place] [address], [facility] [phone] * CT Chest Wo Contrast (09/16/2024 2:29 PM CDT) Anatomical Region Laterality Modality Chest Computed Tomogra phy 09/16/2024 2:57 PM CDT Impressions 09/16/2024 3:07 PM CDT Impression: 1.Large mass involving the left upper lobe with probable direct invasion involving the left hilum and prevascular region concerning for underlying neoplastic process with resultant occlusion of left upper bronchus and narrowing of the left lower lobe bronchus with resultant postobstructive consolidation and atelectasis. Associated surrounding satellite nodularity noted in the left lung. 2.Multiple enlarged mediastinal lymph nodes, most prominent within the prevascular space as detailed above representing metastatic lymphadenopathy. 3.Moderate left pleural effusion along with nodular areas of thickening involving the pleura likely resenting pleural metastatic disease. 4.Partially visualized cirrhotic changes involving the liver. > Interpreting Provider: Rob Pedersen on 09/16/2024 3:07 PM Narrative 09/16/2024 3:07 PM CDT PROCEDURE: CT CHEST WO CONTRAST, DATE/TIME OF EXAM: 09/16/2024 2:31 PM, LOCATION [facility] INDICATION: R91.8: Lung mass ADDITIONAL CLINICAL INFORMATION: Ordering Provider Reason For Exam: Post bronch. New infiltrate whole left lung Technologist Note: Additional: COMPARISON: None. TECHNIQUE: CT of the chest was performed without contrast according to standard protocol. Findings: Evaluation of visceral and vascular structures is degraded due to lack of intravenous contrast administration. Lower Neck and Axillae: Mildly enlarged left lower neck lymph nodes with largest measuring 1.6 cm (Series 3, Image 2). Lungs: Large mass involving the left upper lobe measuring approximately 9.9 cm and results in complete occlusion of the left upper lobe bronchus as well as narrowing involving the left lower lobe bronchi as well resulting in postobstructive atelectasis and/or consolidative changes. Mass abuts and directly invades the left hilar and prevascular space. There is moderate sized left pleural effusion with adjacent atelectasis. Additionally, nodular thickening of several portions of the pleura noted particularly along the anterior aspect measuring 3.4 cm. Several small satellite nodularities noted along the left lung. Right lung base atelectasis. A few calcified granulomas in the right lung. Lungs otherwise clear. No pneumothorax. Heart and Pericardium: The cardiac chambers are normal in size. No pericardial fluid or thickening is present. The coronary arteries are atherosclerotic. Mediastinum and Jessica: Multiple enlarged mediastinal lymph nodes particularly within the prevascular space with the largest conglomerate measuring 3.4 cm. Other enlarged lymph nodes within the right lower paratracheal region measuring 1.5 cm (Series 3, Image 48) and subcarinal region measuring 2.1 cm (Series 3, Image 58) also noted. A few enlarged cardiophrenic lymph nodes also noted Thoracic Vasculature: The aorta and its branch vessels are atherosclerotic. Bones and Chest Wall: Bone windows demonstrate no suspicious lytic or blastic lesions. The visible osseous structures are intact. Degenerative changes are seen in the spine. Upper Abdomen: Partially visualized cirrhotic liver. Partially visualized multiple calcified granulomas in the spleen. Otherwise remaining visible portions of the upper abdominal organs are normal. Procedure Note Rob Pedersen MD - 09/16/2024 PROCEDURE: CT CHEST WO CONTRAST, DATE/TIME OF EXAM: 09/16/2024 2:31 PM, LOCATION [facility] INDICATION: R91.8: Lung mass ADDITIONAL CLINICAL INFORMATION: Ordering Provider Reason For Exam: Post bronch. New infiltrate wholeleft lung Technologist Note: Additional: COMPARISON: None. TECHNIQUE: CT of the chest was performed without contrast according to standard protocol. Findings: Evaluation of visceral and vascular structures is degraded due to lackof intravenous contrast administration. Lower Neck and Axillae: Mildly enlarged left lower neck lymph nodes with largest measuring 1.6cm (Series 3, Image 2). Lungs: Large mass involving the left upper lobe measuring approximately 9.9 cmand results in complete occlusion of the left upper lobe bronchus as well as narrowing involving the left lower lobe bronchi as well resulting in postobstructive atelectasis and/or consolidative changes. Mass abuts and directly invades the left hilar and prevascular space. There is moderate sized left pleural effusion with adjacent atelectasis. Additionally, nodular thickening of several portions of the pleura noted particularly along the anterior aspect measuring 3.4 cm. Several small satellite nodularities noted along the left lung. Right lung base atelectasis. Afew calcified granulomas in the right lung. Lungs otherwise clear. No pneumothorax. Heart and Pericardium: The cardiac chambers are normal in size. No pericardial fluid orthickening is present. The coronary arteries are atherosclerotic. Mediastinum and Jessica: Multiple enlarged mediastinal lymph nodes particularly within the prevascular space with the largest conglomerate measuring 3.4 cm. Other enlarged lymph nodes within the right lower paratracheal regionmeasuring 1.5 cm (Series 3, Image 48) and subcarinal region measuring 2.1 cm(Series 3, Image 58) also noted. A few enlarged cardiophrenic lymph nodes also noted Thoracic Vasculature: The aorta and its branch vessels are atherosclerotic. Bones and Chest Wall: Bone windows demonstrate no suspicious lytic or blastic lesions. The visible osseous structures are intact. Degenerative changes are seen inthe spine. Upper Abdomen: Partially visualized cirrhotic liver. Partially visualized multiple calcified granulomas in the spleen. Otherwise remaining visible portionsof the upper abdominal organs are normal. Impression: 1.Large mass involving the left upper lobe with probable direct invasion involving the left hilum and prevascular region concerning forunderlying neoplastic process with resultant occlusion of left upper bronchus and narrowing of the left lower lobe bronchus with resultant postobstructive consolidation and atelectasis. Associated surrounding satellitenodularity noted in the left lung. 2.Multiple enlarged mediastinal lymph nodes, most prominent within the prevascular space as detailed above representing metastatic lymphadenopathy. 3.Moderate left pleural effusion along with nodular areas of thickening involving the pleura likely resenting pleural metastatic disease. 4.Partially visualized cirrhotic changes involving the liver. > Interpreting Provider: Rob Pedersen on 09/16/2024 3:07 PM Yifan Potter MD CT ORDERABLES Final Result * FLOW CYTOMETRY BODY FLUID (09/16/2024 12:22 PM CDT) Case Report Flow Cytometry Case: [id number] Authorizing Provider: Yifan Potter MD Collected: 09/16/2024 12:22 PM Ordering Location: [facility] Received: 09/16/2024 12:45 PM Pathologist: Michoacano Raza MD Specimen: Body Fluid , LYMPH NODE 11L 09/16/2024 5:32 PM CDT [facility] Final Diagnosis Lymph node, flow cytometry: - Too few hematopoietic cells for flow cytometry 09/16/2024 5:32 PM CDT [facility] at 1732 CDT Flow Cytometry Interpretation A cytospin prepared from the flow cytometry specimen has been reviewed for air quality manager purposes. Few three-dimensional clusters of cells are seen. 09/16/2024 5:32 PM CDT [facility] Flow Cytometry Results Too few viable cells for flow cytometric analysis. 09/16/2024 5:32 PM CDT [facility] Client Specimen ID # [id number] 09/16/2024 5:32 PM CDT [facility] Reason for test Lung mass 786.6 02/2024 5:32 PM CDT [facility] Pathologist Location at [facility] 09/16/2024 5:32 PM CDT [facility] Disclaimer Test performed at [facility], [address] [place] [address], [id number]. *The established laboratory minimum viability is 70%. Values below the minimum may result in the failure to find an abnormal population of cells. This test was developed and its performance characteristics determined by the Flow Cytometry Laboratory. It has not been cleared by the [place] Food and Drug Administration (FDA). The FDA has determined that such clearance or approval is not necessary. This test is used for clinical purposes. It should not be regarded as investigational or for research. This laboratory is regulated under the Clinical Laboratory Improvement Amendments of 1998 (CLIA) as a qualified to perform high complexity clinical testing. 09/16/2024 5:32 PM CDT [facility] Embedded Images 5:32 PM CD[address] [facility] Fluid BODY FLUID SPECIMEN / Unknown Collection / Unknown 09/16/2024 12:22 PM CDT 09/16/2024 12:45 PM CDT Comment:LYMPH NODE 11L FOR L YMPHOMA us Yifan Potter MD LAB - PATHOLOGY/CYTOLOGY ORD ERABLES Final Result [facility] [address] [phone] * FINE NEEDLE ASPIRATION (STL) (09/16/2024 12:07 PM CDT) Case Report Medical Cytology Report Case: [id number] Authorizing Provider: Yifan Potter MD Collected: 09/16/2024 12:07 PM Ordering Location: [facility] Received: 09/16/2024 12:45 PM Pathologist: Yifan Townsend MD Specimens: A) - Lymph Node, 7 B) - Lymph Node, 4R C) - Lymph Node, 11L D) - Lymph Node, 4L 09/20/2024 12:07 PM CDT [facility] Specimen Adequacy Adequate cellularity for evaluation. 09/20/2024 12:07 PM CDT [facility] Final Diagnosis A. Station 7 lymph node, fine-needle aspiration: Positive for Malignancy: Small cell carcinoma. B. Station 4R lymph node, fine-needle aspiration: Positive for Malignancy: Small cell carcinoma. C. Station 11L lymph node, fine-needle aspiration: Positive for Malignancy: Small cell carcinoma. D. Station 4L lymph node, fine-needle aspiration: Positive for Malignancy: Small cell carcinoma. 09/20/2024 12:07 PM CDT [facility] at 1207 CDT Clinical History Fungating mass, left upper lobe, with greater than 90% bronchial narrowing/occlusion 09/20/2024 12:07 PM [facility] Gross Description A) 1 Pap stained Thin Prep slide and 1 cell block from 20 cc of cloudy collection fluid B) 1 Pap stained Thin Prep slide and 1 cell block from 20 cc of cloudy collection fluid C) 2 Pap & 2 Diff Quik stained slides, 1 cell block H&E from 20 cc of cloudy collection fluid D) 5 Pap & 5 Diff Quik stained slides, 1 cell block H&E from 25 cc of bloody collection fluid 09/20/2024 12:07 PM [facility] Microscopic Description Microscopic examination is performed and supports the final diagnosis. Immunohistochemical stains, performed on specimen B, show near diffuse positive staining for Synaptophysin and patchy positive staining for Chromogranin, supporting the diagnosis. All controls stain appropriately. 09/20/2024 12:07 PM [facility] Pathologist Location at [facility] 09/20/2024 12:07 PM [facility] Disclaimer The performance characteristics of all immunohistochemical and indirect immunofluorescence stains (if any) cited in this report were determined by the [facility]opathology Laboratory of [facility]. Some of these tests rely on the use of analyte-specific reagents and are subject to specific labeling requirements by the [place] Food and Drug Administration. Such tests were developed by the [facility] of [facility] and have not been cleared or approved by the FDA. The FDA has determined that such clearance and approval is not necessary. These tests are used for clinical purposes and should not be regarded as investigational or for research. This laboratory is certified under the Clinical Laboratory Improvement Amendments (CLIA) as qualified to perform high complexity clinical laboratory testing. This case has been personally reviewed and interpreted by the attending (teaching) pathologist. 09/20/2024 12:07 PM [facility] Embedded Images 09/20/2024 12:07 PM [facility] Pathology/Cytology ENTIRE LYMPH NODE / Unknown Collection / Unknown 09/16/2024 12:07 PM CDT 09/16/2024 12:45 PM CDT Miscellaneous samples (specimen) ENTIRE LYMPH NODE / Unknown 09/16/2024 12:07 PM CDT 09/16/2024 12:45 PM CDT Miscellaneous samples (specimen) ENTIRE LYMPH NODE / Unknown 09/16/2024 12:07 PM CDT 09/16/2024 12:45 PM CDT Miscellaneous samples (specimen) ENTIRE LYMPH NODE / Unknown 09/16/2024 12:07 PM CDT 09/16/2024 12:45 PM CDT us Yifan Potter MD LAB - PATHOLOGY/CYTOLOGY ORD ERABLES Final Result [facility] [address] [id number] [phone] * PATHOLOGY TISSUE (09/16/2024 11:57 AM CDT) Case Report Surgical Pathology Report Case: [id number] Authorizing Provider: Yifan Potter MD Collected: 09/16/2024 11:57 AM Ordering Location: [facility] Received: 09/16/2024 12:45 PM Pathologist: Delvin Marcial MD Specimens: A) - Lung, Left Upper Lobe, TIM MASS B) - Lung, right lobe, R BRONCHUS INTERMEDIUS 09/22/2024 12:43 PM CDT [facility] Final Diagnosis Lung, left upper lobe, biopsy (A): - Small cell carcinoma, see comment Lung, right bronchus intermedius, biopsy (B): - Fragments of bronchial epithelium with focal chronic inflammation and crushed atypical cells, see comment 09/22/2024 12:43 PM [address] [facility] at 1243 CDT Preliminary result electronically signed by Delvin Marcial MD on 09/20/2024 at 0854 CDT Microscopic Description and Comment Specimen A shows scattered fragments of respiratory epithelium with underlying crushed highly atypical cells. Atypical cells show high N:C ratio, hyperchromasia and nuclear molding. Overt apoptotic bodies are noted. Malignant cells are positive for synaptophysin, chromogranin, TTF-1 and pankeratin (dot-like) while negative for CD45. Specimen B shows also few bronchial mucosa with underlying some chronic inflammation and very focal area of crushed cells. Additional immunostains were performed. Pankeratin is weakly positive in crushed group. Synaptophysin and TTF-1 stains show blush like staining in the same crushed area. Chromogranin, CD45 and PAX5 are negative. Overall, the findings are not definitive but concerning for the same small cell carcinoma. If clinically indicated, additional sampling is recommended for further evaluation. 09/22/2024 12:43 PM [facility] Clinical History Lung lesion 09/22/2024 12:43 PM [facility] Gross Description The requisition and specimen(s) are identified with the patient's name, Marcus Wilkes. Received in formalin, specimen A, are multiple chacon-white to pink-red hemorrhagic tissue fragments, less than 0.1-0.3 cm, 1.0 x 0.5 x 0.1 cm in aggregate , submitted in toto in cassette A1. Received in formalin, specimen B are six chacon-white to hemorrhagic tissue fragments, 0.1-0.2 cm, 0.3 x 0.3 x 0.1 cm in aggregate , submitted in toto in cassette B1. IKD 09/22/2024 12:43 PM [facility] Pathologist Location at [facility] 09/22/2024 12:43 PM [facility] Disclaimer The performance characteristics of all immunohistochemical and indirect immunofluorescence stains (if any) cited in this report were determined by the Histopathology Laboratory of [facility]. Some of these tests were developed by our own laboratory and have not been cleared or approved by the US Food and Drug Administration. The FDA does not require this test to go through premarket FDA review. These tests are used for clinical purposes. They should not be regarded as investigational or for research. This laboratory is certified under the Clinical Laboratory Improvement Amendments (CLIA) as qualified to perform high complexity clinical laboratory testing. This case has been personally reviewed and interpreted by the attending (teaching) pathologist. 09/22/2024 12:43 PM [facility] Embedded Images 09/22/2024 12:43 PM [facility] Biopsy, Excision (Lung, Left Upper Lobe) 09/16/2024 11:57 AM CDT 09/16/2024 12:45 PM CDT Comment:Pre-op diagnosis: Lung mass Biopsy, Excision (Lung, right lobe) 09/16/2024 11:58 AM CDT 09/16/2024 12:45 PM CDT Comment:Pre-op diagnosis: Lung mass us Yifan Potter MD LAB - PATHOLOGY/CYTOLOGY ORD ERABLES Final Result [facility] [address] [place] [address], [facility] [phone] * ETT LINE PERFORMABLE (09/16/2024 10:46 AM CDT) Narrative Ed Cannon CAA - 09/16/2024 10:46 AM CDT Ed Cannon CAA 09/16/2024 10:48 AM Endotracheal Tube Placement: Patient Location: Other - please comment (Bronchoscopy Suite). Intubation Event Date/Time: 09/16/2024 10:22 AM Procedure: intubation (26461) Procedure Section: Sedation: under general anesthesia. Indications for Airway Management: anesthesia Induction: standard IV Patient Position: sniffing Mask Ventilation: difficult and required 2 people (2 handed) (With Oral Airway in Place). Blade Type: Daniel Blade Size: 4 Laryngoscopy View: grade 1 (full cords) Intubation Adjuncts: cricoid pressure and stylet Tube: endotracheal tube Placement: oral Tube type: cuff - inflated Tube Size (MM): 8 Depth of Insertion (CM): 22 Measured From: lips Cuff Inflated With: air Number of Attempts: 1. Placement Verified By: bilateral breath sounds, direct visualization, chest auscultation and CO2 monitor Tube secured with: ETT carrillo. Dentition unchanged? Yes Difficult Airway? No. Procedure Start Time: 09/16/2024 10:22 AM. Staff Section Anesthesia Provider: Ed Cannon CAA, Performed the procedure Provider #1: Corporate Communications Associate, Student Anesthesiology Corporate Communications Associate Student Anesthesiology, Performed the procedure. Provider #2: Mendez Rose DO. us Mendez Rose DO GENERAL ANESTHESIA ORDERABLES F inal Result * Bronchoscopy (09/16/2024 8:52 AM CDT) Report Endoscopy POC [facility] Advanced Diagnostic Bronchoscopy and Interventional Pulmonary Service _ Patient Name: Marcus Wilkes Procedure Date: 09/16/2024 8:52 AM Date of : 1950 Attending MD: Yifan Potter MD, [id number] Age: 74 Room: Bronch Suite _ Providers: Yifan Potter MD, Radha Cruz (Fellow), Tati Thompson MD (Fellow), Ivania Moya RN FORENSIC Referring MD: Hardeep Cohen MD Procedure: Flexible bronchoscopy with brushing, biopsies and linear EBUS-FNA Indications: Abnormal CT scan of chest Medicines: General Anesthesia Comorbidities DLBCL, prostate cancer, cirrhosis _ Description of Procedure: After obtaining informed consent, the linear EBUS bronchoscope was introduced through the mouth, via the endotracheal tube (the patient was intubated for the procedure) and advanced to the trachea. The procedure was accomplished without difficulty. The patient tolerated the procedure well. Findings: Left Lung Abnormalities: Bronchial stenosis was found in the left upper lobe. The narrowing appears to be from fungating mass. The airway lumen is greater than 90% occluded. The lingular bronchus was mildly narrowed with a fungating mass at the origin. Right Lung Abnormalities: noted a punched out lesion abnormal mucosa in right BI. Transbronchial needle aspirations of a nodule were performed in the left and right paratracheal and subcarinal areas and in the left hilum using a fine 21 gauge needle and sent for routine cytology and flow cytometry. The procedure was guided by ultrasound. Transbronchial needle aspiration technique was selected because the sampling site was not visible endoscopically. Performed FNA of 4L *6 passes, 11L 4 passes, 4R *3 passes, and station 7 *3 passes. Performed endobronchial lesion forceps biopsy in TIM with multiple good sized samples. Performed endobronchial lesion forceps biopsy in right BI with multiple good sized samples. Brushings of a lesion were obtained in the bronchus intermedius with a cytology brush and sent for routine cytology. One sample was obtained. Estimated Blood Loss: 7 ml. Complications: None. _ Impression: -- Severely narrowed TIM airway with mass-like irregular mucosa s/p biopsies -- Small punched-out lesion with irregular mucosa medial wall of distal bronchus intermedius s/p brushing/biopsies -- Bulky adenopathy in the L distal paratracheal (station 4L) and L hilar (station 11L) locations s/p FNA. -- Enlarged subcarinal lymph node (station 7) s/p FNA -- Approximately 1 cm R distal paratracheal lymph node (station 4R) s/p FNA -- Thick clear secretions throughout the large airways. Recommendation: - Await biopsy, brushing and cytology results. Attending Participation: I was present and participated during the entire procedure, including non-burgess portions. Yifan Potter MD ___ Yifan Potter MD 09/16/2024 12:21:55 PM This report has been signed electronically. ____ Tati Thompson MD, Radha Cruz, Yancy Initiated On: 09/16/2024 8:52 AM Number of Addenda: 0 [facility] [address] at [facility], [place] [address] [facility] 09/16/2024 8:52 AM CDT us Yifan Potter MD RESPIRATORY THERAPY ORDERABL ES Edited Result - Final [facility] * HEMOGLOBIN A1C [IN-HOUSE TEST] (07/27/2024 10:32 AM CDT) Hemoglobin A1c 5.2 <=5.6 % 07/27/2024 12:09 PM CDT [facility] Estimated Average Glucose 103 mg/dL 07/27/2024 12:09 PM CDT [facility] Comment: HbA1c Interpretation: Normal : < 5.7% Pre-diabetes: 5.7-6.4% Diabetes: Equal to or greater than 6.5% Test results diagnostic of diabetes should be repeated for confirmation. Treatment target values recommended by ADA and other clinical organizations should be used to evaluate metabolic control in patients. Reference: [place] Diabetes Association, Standards of Care in Diabetes [...] LAB - CHEMISTRY ORDERABLES F inal Result [facility] [address] [place] [address], [place] [phone] * PROSTATE SPECIFIC ANTIGEN SCREEN (07/27/2024 10:32 AM CDT) PSA Total 2.2 <4.0 ng/mL 07/27/2024 12:19 PM CDT [facility] Blood BLOOD SPECIMEN / Unknown Lab Venipuncture / Unknown 07/27/2024 10:32 AM CDT 07/27/2024 10:57 AM CDT Narrative [facility] - 07/27/2024 12:19 PM CDT PSA values will vary depending on the testing procedure used. Results are not comparable across different test methods. [facility] uses the [employer] Alinity immunoassay test method. Jacques Kim MD LAB - CHEMISTRY ORDERABLES F inal Result Performing Organization Address [facility]/ZIP Co de Phone Number [address] [address], [facility] [phone] * PT-INR [facility] (07/27/2024 10:25 AM CDT) Pathologist [facility] PT 14.3 12.1 - 14.8 Seconds 07/27/2024 11:30 AM CDT [facility] INR 1.1 See Comment 07/27/2024 11:30 AM T [facility] Comment:The suggested therap eutic range for standard coumadin (warfarin) therapy is an INR of 2.0-3.0. For high-risk patients (Mechanical Mitral Valve Prosthesis, etc.), the suggested prophylactic therapeutic range is an INR of 2.5-3.5. Blood BLOOD SPECIMEN / Unknown Lab Venipuncture / Unknown 07/27/2024 10:25 AM CDT 07/27/2024 10:57 AM CDT Hardeep Cohen MD LAB - COAGULATION ORDERABLES Final Result Performing Organization Address [facility] Co de Phone Number [address] [address], [facility] [phone] * ALPHA FETOPROTEIN BLOOD TUMOR MARKER (07/27/2024 10:25 AM CDT) Pathologist [facility] Alpha-Fetoprote in Tumor Marker 3.6 <=8.3 ng/mL 07/27/2024 12:23 PM CDT [facility] Comment: AFP values will vary depending on testing procedure used. Results are not comparable across different methods. AFP values obtained by [facility] using an [employer] Alinity Immunoassay. Blood BLOOD SPECIMEN / Unknown Lab Venipuncture / Unknown 07/27/2024 10:25 AM CDT 07/27/2024 10:57 AM CDT us Hardeep Cohen MD LAB - CHEMISTRY OR DERABLES Final Result Performing Organization Address City/State/[facility] Co de Phone Number [facility] [address] [place] [address], [facility] [phone] * US Abdomen Limited (07/27/2024 9:35 AM [...] DATE/TIME OF EXAM: 07/27/2024 9:35 AM, LOCATION [facility] INDICATION: K75.81: Liver cirrhosis secondary to [...] DATE/TIME OF EXAM: 07/27/2024 9:35 AM, LOCATION [facility] INDICATION: K75.81: Liver cirrhosis secondary to [...] Endoscopy Department Report _ Patient Name: Marcus Wilkes Procedure Date: 09/23/2022 8:21 AM Date of [...] entire procedure. Procedure Code(s): --- Professional --- 87322, Colonoscopy, flexible; with biopsy, single or multiple Diagnosis Code(s): --- Professional --- Z86.010, Personal history of colonic polyps D12.2, Benign neoplasm of ascending colon K57.30, Diverticulosis of large intestine without perforation or abscess without bleeding CPT copyright 2021 [place] [employer]. All rights reserved. The codes documented in this report are preliminary and upon procurement cost coordinator review may be revised to meet current compliance requirements. Hardeep Modi MD 09/23/2022 9:15:24 AM This report has been signed electronically. Note Initiated On: 09/23/2022 8:21 AM Number of Addenda: [address] [employer] 09/23/2022 8:21 AM CDT Hardeep Cohen MD GI PROCEDURE ORDER BUCK Edited Result - Final [facility] * (ABNORMAL) LIPID PROFILE (EXTERAL RESULT ENTRY) (04/11/2020) Cholesterol (EXTERNAL RESULT) 207(A) 140 - 199 mg/dL Triglycerides (EXTERNAL RESULT) 306(A) 0 - 150 mg/dL HDL (EXTERNAL RESULT) 33(A) >40 mg/dL LDL (EXTERNAL RESULT) 113 0 - 130 mg/dL VLDL (EXTERNAL RESULT) Chol HDL Ratio (External Result) Blood BLOOD SPECIMEN / Unknown 04/11/2020 Historical Provider LAB - CHEMISTRY ORDERABLE S Final Result from Last 3 Months or Most Recently Relevant to Health Maintenance Insurance [place] [employer] MANAGED MEDICARE [facility] MEDICARE Advance Directives * DNR - IF PULSELESS NO CPR, NO SHOCK (Latest Code Status on File) Date Activated Date Inactivated Comments 09/28/2024 9:35 PM 10/04/2024 4:39 PM Question Answer Comments : DO NOT discontinue a or active orders without asking attending physician. * DNR - IF PULSELESS NO CPR, NO SHOCK Date Activated Date Inactivated Comments 09/28/2024 8:57 PM 09/28/2024 9:35 PM Question Answer Comments : DO NOT discontinue a or active orders without asking attending physician. * LIMITED RESUSCITATION-PRIOR AND AFTER ARREST Date Activated Date Inactivated Comments 09/16/2024 5:55 PM 09/17/2024 7:51 PM Question Answer Comments Limited Resuscitation: No Chest Compress ionNo Cardioversion, No Defibrilation, No External or Internal Pacemaker Care Teams Press Department Manager Relationship Specialty Start Date End Date Jacques Kim MD [address] [place] [address] PCP - General 08/17/19 Tomasa Correa MD [address] [facility] [address] [place] [address] Hematology and Oncology 09/27/24
--- NOTE | 2024-10-07 23:24 | ED.GENADULT ---
HPI - General Adult General Chief complaint: Shortness of Breath/Dyspnea Stated complaint: SOB N/V/D X SEVERAL DAYS Time Seen by Provider: 10/07/24 22:26 History of Present Illness HPI narrative: Patient is a 74-year-old male who presents the emergency department this evening complaining of shortness of breath, nausea vomiting and diarrhea which started a few days ago. Was recently diagnosed with lung cancer/non-Hodgkin's lymphoma approximately 1 month ago. Patient has been following up with [facility] and started chemotherapy last week. He was admitted there last week for 7 days and was discharged Thursday of this week. Patient states that while he was there he had some fluid drained from his lungs. Denies any fevers or chills at home. Notes symptoms or concerns at this time. Related Data Home Medications ?Medication ?Instructions ?Recorded ?Confirmed ?Last Taken ?Type lisinopril 2.5 mg tablet 2.5 mg PO DAILY 08/22/24 08/22/24 Unknown History mecobalamin (vitamin B12) 1,000 1,000 mcg PO DAILY 08/22/24 08/22/24 Unknown History mcg chewable tablet (B12 Active) metoprolol tartrate 25 mg tablet 12.5 mg PO BID 08/22/24 08/22/24 Unknown History multivitamin 1 tablet PO DAILY 08/22/24 08/22/24 Unknown History Allergies Allergy/AdvReac Type Severity Reaction Status Date / Time Sulfa (Sulfonamide Allergy Mild Hives Verified 10/08/24 02:33 Antibiotics) Review of Systems Review of Systems: All systems are reviewed and are negative unless stated otherwise in the HPI. [facility] Past Medical History Medical History History of non-Hodgkin's lymphoma 2013, 10 rounds chemo Social History Social History Smoking status: Current every day smoker Exam Narrative: General: Alert, awake, afebrile, in no acute distress. HEENT: PERRL, no rhinorrhea, no post nasal drip, oropharynx clear. Neck: Trachea midline, no JVD, no lymphadenopathy. Cardiovascular: Tachycardiac with regular rhythm, no murmurs, rubs or gallops, no peripheral edema, chemo port to right upper chest wall. Respiratory: Diminished breath sounds in the left mid to lower lung haw[place], tachypnea, no wheezing, no rhonchi, no rubs, no respiratory distress. Abdomen: Soft, mild nonspecific generalized tenderness, nondistended, no rebound, no guarding, no peritoneal signs. Musculoskeletal: No joint swelling or deformity, normal muscle tone. Skin: No rashes or petechia, no signs of infection. Psychiatric: Alert and oriented, normal behavior and judgment for situation. Neurological: Alert and oriented to person, place, and time. Follows all commands. No focal deficits, speech is clear and fluent. Course Vital Signs Vital signs: Vital Signs Temperature 97.6 F 10/07/24 22:23 Pulse Rate 112 H 10/07/24 22:23 Respiratory Rate 25 H 10/07/24 22:23 Blood Pressure 153/81 H 10/07/24 22:23 Pulse Oximetry 92 10/07/24 22:23 Temperature 97.6 F 10/07/24 22:23 Pulse Rate 104 H 10/08/24 02:16 Respiratory Rate 22 H 10/08/24 02:16 Blood Pressure 134/69 10/08/24 02:16 Pulse Oximetry 96 10/08/24 02:19 Oxygen Delivery Nasal Cannula 10/08/24 02:19 Oxygen Flow Rate 2 10/08/24 02:19 Medical Decision Making [facility] Narrative Medical decision making narrative: The patient was evaluated by myself in the emergency department. History is obtained from patient who is an independent historian and physical exam was performed. External medical records were reviewed at this time. IV was established and pertinent tests were ordered. Patient was administered 2 mg of IV morphine and 4 mg of IV Zofran and started on broad-spectrum antibiotics with vancomycin/ Zosyn as patient did trigger sepsis. Blood cultures were obtained prior to antibiotic administration. Laboratory results obtained revealing Hemoglobin of 9.8, white blood cell count of 0.6, platelets of 36, absolute neutrophil count of 0 which are all significantly lower than last documented values in patient's chart from August of this year. At that time, patient's blood work was unremarkable. Imaging studies obtained included CTA chest PE protocol and CT abdomen pelvis with IV contrast which was independently interpreted by me revealing multifocal pneumonia, large left parapneumonic effusion, enteritis, which is pending final radiology interpretation. Differential diagnosis considerations include neutropenic fever, septic/septic shock, pneumonia, pleural effusion, empyema, pancytopenia, gastroenteritis, dehydration, electrolyte derangements. Comorbidities impacting this visit include recent diagnosis of lung cancer /non-Hodgkin's lymphoma and chemotherapy. I have evaluated and discussed social determinants of health with the patient that could potentially impact subsequent diagnosis and treatment plans. On repeat assessment of the patient, reevaluation revealed that the patient is doing well and is in no acute distress. Patient symptoms have improved since he arrived to our emergency department. Repeat vital signs were all reviewed and noted to be stable. Differential diagnosis and treatment plan were discussed with the patient at bedside. Patient agrees with discussion and after shared medical decision making agrees with transfer. All questions were answered to the patient's satisfaction. At this time, [facility] was contacted at [phone] and transfer back to [facility] was initiated at this time. Received a call back at [phone] from the transfer line forming me that the patient was accepted by the on-call Hematology / Oncology physician Dr. Urena. Case was also discussed with the on-call hospitalist Dr. Pedraza at [phone] who accepted transfer. Patient is pending bed placement. Critical care time of 75 minutes, exclusive of separately performed procedures, necessary for treating or preventing eminent or life-threatening deterioration of patient's condition of Sepsis secondary to multifocal pneumonia in the setting of neutropenia, focused on patient care provided personally by me and time spent during initial evaluation, physical examination, ordering and performing treatments and interventions, ordering and reviewing laboratory studies, ordering and reviewing radiographic studies, re-evaluation of the patient's condition, evaluation of the patient's response to treatment, and discussion of patient case with accepting physician and consultants. Vital Signs Vital Signs: Vital Signs Temperature 97.6 F 10/07/24 22:23 Pulse Rate 112 H 10/07/24 22:23 Respiratory Rate 25 H 10/07/24 22:23 Blood Pressure 153/81 H 10/07/24 22:23 Pulse Oximetry 92 10/07/24 22:23 Temperature 97.6 F 10/07/24 22:23 Pulse Rate 104 H 10/08/24 02:16 Respiratory Rate 22 H 10/08/24 02:16 Blood Pressure 134/69 10/08/24 02:16 Pulse Oximetry 96 10/08/24 02:19 Oxygen Delivery Nasal Cannula 10/08/24 02:19 Oxygen Flow Rate 2 10/08/24 02:19 Lab Data 10/08/24 01:19 10/07/24 23:18 Labs: Lab Results 10/07/24 10/08/24 10/08/24 Range/Units 23:18 01:04 01:19 WBC 0.6 L* (4.5-10.0) K/mm3 RBC 2.96 L (4.6-6.20) M/mm3 Hgb 9.8 L D (14.0-18.0) g/dL Hct 28.5 L (42.0-52.0) % MCV 96.3 (80-100) fl MCH 33.1 (26-34) pg MCHC 34.4 (32-36) g/dl RDW 11.9 (11.5-14.5) % Plt Count 36 L D (150-375) k/mm3 MPV 10.2 (7.4-10.4) fl Immature Gran % (Auto) 1.8 H (0-0.5) % Neut % (Auto) 3.4 L (45.5-73.1) % Lymph % (Auto) 80.7 H (18.3-44.2) % [place] % (Auto) 7.0 (2.6-8.5) % Eos % (Auto) 5.3 H (0-4.4) % Baso % (Auto) 1.8 H (0.2-1.2) % Lymph # (Auto) 0.46 L (0.9-3.2) K/mm3 [place] # (Auto) 0.0 L (0.1-0.6) K/mm3 Eos # (Auto) 0.0 (0-0.3) K/mm3 Baso # (Auto) 0.0 (0.0-0.1) K/mm3 Abs Immat Gran (auto) 0.01 (0.00-0.031) K/mm3 Absolute Neuts (auto) 0.0 L* (1.3-6.7) K/mm3 Absolute Nucleated RBC 0.000 (0.0-0.012) K/mm3 Nucleated RBC % 0.0 (0.0-0.2) % % Immature Plt Fraction 3.0 (0.9-11.2) % Sodium 130 L (137-145) mmol/L Potassium 3.8 (3.4-5.0) mmol/L Chloride 100 (98-107) mmol/L Carbon Dioxide 29 (22-30) mmol/L Anion Gap 1 L (4-12) mmol/L BUN 20 (9-20) mg/dL Creatinine 0.58 L (0.7-1.3) mg/dL Estim Creat Clear Calc 118 ml/min Estimated GFR > 60 (59 - ) Glucose 92 (65-110) mg/dL Lactic Acid 1.1 (0.7-2.0) mmol/L Calcium 8.1 L (8.4-10.2) mg/dL Magnesium 1.6 (1.6-2.3) mg/dL Total Bilirubin 1.2 (0.2-1.3) mg/dL AST 58 (17-59) U/L ALT 35 (6-50) U/L Alkaline Phosphatase 107 (38-126) U/L Total Protein 5.3 L (6.3-8.2) g/dL Albumin 2.5 L (3.5-5.1) g/dL Lipase 131 (23-300) U/L Urine Color Yellow (Yellow) Urine Appearance Clear (Clear) Urine pH 7.5 (5.0-9.0) Ur Specific [place] 1.018 (1.001-1.035) Urine Protein Trace (Negative) mg/dL Urine Glucose (UA) Negative (Negative) mg/dL Urine Ketones Negative (Negative) mg/dL Ur Blood (Man) Negative (Negative) Urine Nitrate Negative (Negative) Urine Bilirubin Negative (Negative) Urine Urobilinogen 0.2 (<2.0) mg/dL Leukocyte Esterase Rfl Negative (Negative) NERY/UL Urine RBC 0-2 (0-2) /hpf Urine WBC 0-5 (0-3) /hpf Ur Squamous Epith Cells None seen (Few) /hpf Urine Bacteria None seen /hpf Urine Casts 0-2 Nasal MRSA (PCR) Not detected (NOT DETECTE) Influenza A (RT-PCR) Negative (Negative) Influenza B (RT-PCR) Negative (Negative) SARS-CoV-2 RNA (RT-PCR) Negative (Negative) Critical Care Time Critical Care Time Critical Care Time: Yes Total Critical Care Time: 75 ( Please refer to [facility] for attestation.) Discharge Plan Discharge Clinical Impression: Sepsis, Pancytopenia, Multifocal pneumonia, Enteritis, Non Hodgkin's lymphoma, Parapneumonic effusion, Shortness of breath Patient Disposition: Acute Care Hospital Condition: Critical Patient Language: Niuean Prescriptions: No Action lisinopril 2.5 mg tablet 2.5 mg PO DAILY metoprolol tartrate 25 mg tablet 12.5 mg PO BID multivitamin Tablet 1 tablet PO DAILY mecobalamin (vitamin B12) [B12 Active] 1,000 mcg tablet,chewable 1,000 mcg PO DAILY lidocaine 5 % adhesive patch,medicated 1 patch topical DAILY Qty: 15 0RF Rx Instructions: leave on most painful area for up to 12 hrs acetaminophen [Tylenol Extra Strength] 500 mg tablet 500 mg PO Q6H PRN (Reason: pain) Qty: 30 0RF Follow-up/Referrals: Jacques Kim MD [Primary Care Provider, Family Practice] Time of Disposition: 01:56
[2024-10-07 23:38] LABS: Add Urine Microscopic? YES; Appearance Urine Clear (Clear); Glucose Urine UA Negative (Negative); Leukocyte Esterase Ur Negative LEU/UL (Negative); Nitrate Urine Negative (Negative); Non Pathogenic Casts 0-2; Specific Grav Ur 1.018 (1.001-1.035)
[2024-10-07 23:43] LABS: Alanine Aminotransferase 35 U/L (6-50); Albumin Level 2.5 g/dL (3.5-5.1); Alkaline Phosphatase 107 U/L (38-126); Anion Gap 1 mmol/L (4-12); Aspartate Amino Transferase 58 U/L (17-59); Bilirubin,Total 1.2 mg/dL (0.2-1.3); Blood Urea Nitrogen 20 mg/dL (9-20); Calcium 8.1 mg/dL (8.4-10.2); Carbon Dioxide 29 mmol/L (22-30); Chloride 100 mmol/L (98-107); Estimated CRCL calculation 118 ml/min; Estimated Glomerular Filt Rate > 60; Glucose 92 mg/dL (65-110); Lipase 131 U/L (23-300); Magnesium 1.6 mg/dL (1.6-2.3); Potassium 3.8 mmol/L (3.4-5.0); Sodium 130 mmol/L (137-145); Total Protein 5.3 g/dL (6.3-8.2)
[2024-10-08] VITALS (61 sets, daily range): BP systolic 101–139; BP diastolic 52–116; PULSE 93–158; RESP 14–32; O2SAT 81–100
[2024-10-08 00:07] LABS: Influenza A QL RT-PCR Negative (Negative); Influenza B QL RT-PCR Negative (Negative); SARS-CoV-2 RNA PCR Negative (Negative)
[2024-10-08] MEDS: ONDANSETRON INJ 4 MG/2 ML VIAL IV PUSH (00:27)
[2024-10-08] MEDS: PIPERACILLIN/TAZOBACTAM SOD 4.5 GM in SODIUM CHLORIDE 0.9% IV 100 ML 200 ML IVPB (00:27)
[2024-10-08] MEDS: MORPHINE SULFATE (*CRX) 4 MG/ML INJ 2 MG IV PUSH (00:27)
[2024-10-08] MEDS: VANCOMYCIN 1,250 MG/NS 250 ML 1,250 MG/250 ML BAG 166.67 MG IVPB ×2 (01:00→02:31)
[2024-10-08 01:28] LABS: Hematocrit 28.5 % (42.0-52.0); Hemoglobin 9.8 g/dL (14.0-18.0); Immature Granulocyte Percent A 1.8 % (0-0.5); Immature Platelet Fraction Pct 3.0 % (0.9-11.2); Lymphocytes Absolute Auto 0.46 K/mm3 (0.9-3.2); Mean Corpuscular HGB Conc 34.4 g/dl (32-36); Mean Corpuscular Hemoglobin 33.1 pg (26-34); Mean Corpuscular Volume 96.3 fl (80-100); Nucleated Red Blood Cells Absolute Auto 0.000 K/mm3 (0.0-0.012); Nucleated Red Blood Cells Perc 0.0 % (0.0-0.2); Platelet Count Result 36 k/mm3 (150-375); Red Blood Count 2.96 M/mm3 (4.6-6.20)
[2024-10-08 01:32] LABS: White Blood Count 0.6 K/mm3 (4.5-10.0)
[2024-10-08 03:03] LABS: MRSA (PCR) NOT DETECTED (NOT DETECTE)
--- NOTE | 2024-10-08 07:27 | PC.NURSE ---
Assumed care of pt from [facility]. Pt resting quietly in room
[2024-10-08] MEDS: MORPHINE SULFATE (*CRX) 4 MG/ML INJ IV PUSH ×2 (09:44→14:15)
--- NOTE | 2024-10-08 11:57 | ECG_ITS ---
Test Date: 2024-10-08 12:03:09 Measurements Intervals [place] Rate: 132 P: 0 IN: 0 QRS: 24 QRSD: 85 T: 29 QT: 290 QTc: 431 Interpretive Statements ATRIAL FLUTTER/TACHYCARDIA WITH RAPID VENTRICULAR RESPONSE BASELINE ARTIFACT- II, III, AVF ABNORMAL ECG No previous ECG available for comparison Electronically Signed On 10-08-2024 17:01:32 CDT by Prakash Borjas D.O.
[2024-10-08] MEDS: METOPROLOL TARTRATE INJ 5 MG/5 ML VIAL IV PUSH (12:39)
--- NOTE | 2024-10-08 12:40 | PC.NURSE ---
Pt given Metoprolol for afib in the 140s/150s. 1 mg b/p 124/105 hr 125. 2 mg b/p 139/116 HR 126. 3 mg b/p 112/75 HR 118. 4 mg B/p 111/66 HR 113. 5 mg B/p 101/65 HR 103
[2024-10-08] MEDS: VANCOMYCIN 1,500 MG/NS 500 ML 1,500 MG/500 ML BAG 250 MG IVPB (14:16)
== END 2024-10-08 17:17 | disposition short-term general hospital (02) ==
PROVIDERS: Emergency Provider Emergency Medicine; PCP Family Medicine
DX: A41.9 Sepsis, unspecified organism (principal); C85.90 Non-Hodgkin lymphoma, unspecified, unspecified site; C34.92 Malignant neoplasm of unspecified part of left bronchus or lung; J18.9 Pneumonia, unspecified organism; D61.818 Other pancytopenia; K52.9 Noninfective gastroenteritis and colitis, unspecified; Z20.822 Contact with and (suspected) exposure to COVID-19; K74.60 Unspecified cirrhosis of liver; F17.200 Nicotine dependence, unspecified, uncomplicated; Z79.60 Long term (current) use of unspecified immunomodulators and immunosuppressants; I48.92 Unspecified atrial flutter; R00.0 Tachycardia, unspecified
CPT/HCPCS: 36415; 71045; 71275; 74177; 80053; 81001; 83605; 83690; 83735; 85025; 85055; 87040; 87636; 87641; 93005; 96365; 96366; 96367; 96375; 96376; 99285; J0616; J2270; J2405; J2543; J3373; Q9967